=== PATIENT | female | born 1930 | race Caucasian/White ===

== ENCOUNTER 2016-09-26 19:07 | Observation (INO) | payer MEDICARE ==
--- NOTE | 2016-09-26 20:00 | ED.PDOC ---
History of Present Illness - General Chief Complaint: Lower Extremity Injury Stated Complaint: buttock pain Time Seen by Provider: 09/26/16 19:56 Source: patient, RN notes reviewed, Vital Signs reviewed Exam Limitations: no limitations - History of Present Illness Initial Comments: Patient was in her refrigerator and just fell backwards. Did not pass out. She landed on her buttock. Tried to get up but fell back down due to L hip pain. She has pain with any movement of her L hip. She also is having pain in her L elbow. She did hit the back of her head but denies injury or pain. Occurred: just prior to arrival Severity: moderate Pain Location: pelvis, upper extremity - L elbow, lower extremity - L hip Method of Injury: fall Improving Factors: rest Worsening Factors: movement Loss of Consciousness: no loss of consciousness Associated Symptoms (Fall): trouble walking Allergies/Adverse Reactions: Allergies ARTEMIO Inhibitors Allergy (Verified 09/26/16 19:50) Vomitting Codeine Allergy (Verified 09/26/16 19:50) Penicillins Allergy (Verified 09/26/16 19:50) Vomitting Home Medications: Ambulatory Orders Furosemide Tab 40Mg (ER Disp) [Lasix 40mg Tab (ER Dispense)] 40 mg PO DAILY Gabapentin [Neurontin] 900 mg PO BEDTIME 08/28/12 Atorvastatin Calcium [Lipitor] 10 mg PO BEDTIME 12/13/15 Hydroxyzine HCl 25 mg PO Q4HR PRN 12/13/15 Acetaminophen [Tylenol] 500 mg PO Q6HR PRN 12/23/15 Docusate Sodium [Colace] 1 each PO DAILY PRN 12/23/15 Hydrocodone-Acetaminophen [Hydrocodone/Acetaminophen 5-325 mg] 1 tab PO Q4HR PRN 12/23/15 Nicotine Patch 21 mg [Habitrol Patch 21mg] 21 mg TOP Q24HR 12/23/15 Metoprolol Tartrate 25 mg PO DAILY 01/21/16 Cetirizine HCl [ZyrTEC] 10 mg PO PRN 04/06/16 Ferrous Gluconate [Fergon] 27 mg PO BEDTIME 04/06/16 Folic Dtzp-Ebikxtovmi-Mmwhczib [Folbic 2.5-25-2 mg] 1 tab PO BEDTIME 04/06/16 Meloxicam 7.5 mg PO DAILY 04/06/16 Nitroglycerin 0.4 mg Tab [Nitrostat] 1 ea SL PRN 04/06/16 Potassium Citrate (Alkalinizer [Potassium Citrate ER] 10 meq PO BID 04/06/16 Tramadol HCl 50 mg PO TID PRN #14 tab 04/06/16 Metoprolol Succinate [Toprol XL] 25 mg PO BEDTIME 04/25/16 Nitroglycerin [Nitrostat] 1 ea SL WKLY 04/25/16 Potassium Citrate (Alkalinizer [Potassium Citrate ER] 1,080 mg PO DAILY Tramadol HCl 50 mg PO DAILY 04/25/16 hydrOXYzine HCl [Atarax] 25 mg PO DAILY 04/25/16 Review of Systems - Review of Systems Constitutional: States: no symptoms reported EENTM: States: no symptoms reported Respiratory: States: no symptoms reported Cardiology: States: no symptoms reported Gastrointestinal/Abdominal: States: no symptoms reported Genitourinary: States: no symptoms reported Musculoskeletal: States: see HPI, joint pain - L hip and elbow, other - L pelvis pain. Denies: back pain, neck pain Skin: States: no symptoms reported Neurological: States: no symptoms reported. Denies: headache, numbness, paresthesia, tingling, tremors Past Medical History (General) - Patient Medical History Hx Seizures: No Hx Stroke: No Hx Dementia: No Hx Asthma: No Hx of COPD: Yes Hx Cardiac Disorders: Yes Hx Congestive Heart Failure: No Hx Pacemaker: No Hx Hypertension: No Hx Thyroid Disease: No Hx Diabetes: No Hx Gastroesophageal Reflux: No Hx Renal Disease: No Hx Cancer: No Hx of HIV: No Hx Hepatitis C: No Hx MRSA: No MRSA Source:: Wound - Vaccination History Hx Tetanus, Diphtheria Vaccination: No Hx Influenza Vaccination: No Hx Pneumococcal Vaccination: No - Social History Hx Tobacco Use: No Hx Chewing Tobacco Use: No Hx Alcohol Use: No Hx Substance Use: No Hx Substance Use Treatment: No Hx Depression: No Feels Threatened In Home Enviroment: No Feels Threatened In a Relationship: No Hx Physical Abuse: No Hx Emotional Abuse: No Hx Suspected Abuse: No - Female History Patient is a Female of Child Bearing Age (10 -59 yrs old): No Patient : No Family Medical History - Family History Mother Family History: No Known Physical Exam - Physical Exam General Appearance: Alert, Frail, No apparent distress, Well Groomed Head Injury: no evidence of injury Eye Exam: bilateral normal Neck Exam: non-tender, full range of motion, normal alignment, normal inspection Cardiovascular/Respiratory: regular rate, rhythm, no M/R/G, normal peripheral pulses, normal breath sounds, no respiratory distress Gastrointestinal/Abdominal: normal bowel sounds, soft, tenderness - diffusely tender, no guarding or rebound Extremity Exam: no pedal edema, pain with movement - L hip, tenderness - L hip and L lateral pelvis, unable to bear weight Neurologic: no motor/sensory deficits, alert, normal mood/affect, oriented x 3 Skin Exam: rash - numerous bruises in various stages of healing Comments: Vital Signs - 24 hr 09/26/16 19:41 Temperature 98.1 F Pulse Rate [ 94 H Apical] Respiratory 18 Rate Blood Pressure 158/87 [Left Arm] O2 Sat by Pulse 87 L Oximetry - Maikel Coma Score Best Eye Response (Maikel): (4) open spontaneously Best Verbal Response ([place]): (5) oriented Best Motor Response (Maikel): (6) obeys commands Maikel Total: 15 Progress - Progress Progress: 09/26/16 23:[address] Nova, ortho, and Dr. Franklin, hospitalist - will admit for PT and pain control. - Results/Orders Results/Orders: Laboratory Tests 09/26/16 09/26/16 20:25 20:25 WBC 10.5 RBC 4.31 Hgb 13.1 Hct 39.3 MCV 91.2 MCH 30.5 MCHC 33.5 RDW 15.5 H Plt Count 204 MPV 6.5 L Absolute Neuts (auto) 8.60 H Absolute Lymphs (auto) 1.40 Absolute Monos (auto) 0.30 Absolute Eos (auto) 0.10 Absolute Basos (auto) 0.10 Neutrophils % 81.6 H Lymphocytes % 13.6 L Monocytes % 3.2 Eosinophils % 0.8 L Basophils % 0.8 Sodium 139 Potassium 3.3 L Chloride 101 Carbon Dioxide 32 H Anion Gap 9.3 L BUN 15 Creatinine 1.07 BUN/Creatinine Ratio 14.0 Random Glucose 114 H Serum Osmolality 279.2 Calcium 9.4 Total Bilirubin 0.5 AST 18 ALT 20 Alkaline Phosphatase 70 Serum Total Protein 6.2 L Albumin 3.5 Globulin 2.7 Albumin/Globulin Ratio 1.3 - EKG/XRAY/CT XRAY: Elbow - no fracture per radiologist - Bilateral pubic rami fx of unclear age, rec CT scan per Radiologist CT Ordered: Yes CT Interpretation Call Back: No - Bilateral pubic rami fractures per radiology Departure - Departure Clinical Impression: Bilateral pubic rami fractures Qualifiers: Encounter type: initial encounter Fracture type: closed Qualified Code(s): S32.501A - Unspecified fracture of right pubis, initial encounter for closed fracture; S32.502A - Unspecified fracture of left pubis, initial encounter for closed fracture Time of Disposition: 23:00 Disposition: Admit Patient Condition: Fair Departure Forms: ED Discharge - Pt. Copy, Patient Portal Self Enrollment Referrals: Jose Alberto Morelos MD [Primary Care Provider] - 1-2 Weeks Home Medications: Ambulatory Orders Furosemide Tab 40Mg (ER Disp) [Lasix 40mg Tab (ER Dispense)] 40 mg PO DAILY Gabapentin [Neurontin] 900 mg PO BEDTIME 08/28/12 Atorvastatin Calcium [Lipitor] 10 mg PO BEDTIME 12/13/15 Hydroxyzine HCl 25 mg PO Q4HR PRN 12/13/15 Acetaminophen [Tylenol] 500 mg PO Q6HR PRN 12/23/15 Docusate Sodium [Colace] 1 each PO DAILY PRN 12/23/15 Hydrocodone-Acetaminophen [Hydrocodone/Acetaminophen 5-325 mg] 1 tab PO Q4HR PRN 12/23/15 Nicotine Patch 21 mg [Habitrol Patch 21mg] 21 mg TOP Q24HR 12/23/15 Metoprolol Tartrate 25 mg PO DAILY 01/21/16 Cetirizine HCl [ZyrTEC] 10 mg PO PRN 04/06/16 Ferrous Gluconate [Fergon] 27 mg PO BEDTIME 04/06/16 Folic Xmdf-Caraqhmbkv-Xuhwwizv [Folbic 2.5-25-2 mg] 1 tab PO BEDTIME 04/06/16 Meloxicam 7.5 mg PO DAILY 04/06/16 Nitroglycerin 0.4 mg Tab [Nitrostat] 1 ea SL PRN 04/06/16 Potassium Citrate (Alkalinizer [Potassium Citrate ER] 10 meq PO BID 04/06/16 Tramadol HCl 50 mg PO TID PRN #14 tab 04/06/16 Metoprolol Succinate [Toprol XL] 25 mg PO BEDTIME 12/12/16 Nitroglycerin [Nitrostat] 1 ea SL WKLY 04/25/16 Potassium Citrate (Alkalinizer [Potassium Citrate ER] 1,080 mg PO DAILY Tramadol HCl 50 mg PO DAILY 04/25/16 hydrOXYzine HCl [Atarax] 25 mg PO DAILY 04/25/16 Decision To Admit - Decistion To Admit Decision to Admit Reason: Admit from ER Decision to Admit Date: 09/26/16 Decision to Admit Time: 22:51
--- NOTE | 2016-09-26 21:10 | RAD ---
EXAM DESCRIPTION: Hip,Left 2 Views (accession [id number]), Pelvis (accession [id number]) CLINICAL HISTORY: L side pain/tenderness s/p fall tab COMPARISON: April 06, 2016 FINDINGS: Two views of the left hip and frontal view of the pelvis were submitted. Deformity of the superior pubic rami is compatible with fractures of unknown age. If indicated correlation with a CT recommended. Patient is status post left hip arthroplasty. There is no evidence of acute fracture, loosening or dislocation of the left hip or proximal humerus. There is atherosclerosis. Calcifications within the pelvis may represent phleboliths. IMPRESSION: Deformity of the pubic rami bilaterally compatible with fractures of unknown age. If indicated correlation with a CT recommended. Electronically signed by: Sampson Rey MD 09/26/2016 9:10 PM CDT
--- NOTE | 2016-09-26 21:10 | RAD ---
EXAM DESCRIPTION: Hip,Left 2 Views (accession [id number]), Pelvis (accession [id number]) CLINICAL HISTORY: L side pain/tenderness s/p fall tab COMPARISON: April 06, 2016 FINDINGS: Two views of the left hip and frontal view of the pelvis were submitted. Deformity of the superior pubic rami is compatible with fractures of unknown age. If indicated correlation with a CT recommended. Patient is status post left hip arthroplasty. There is no evidence of acute fracture, loosening or dislocation of the left hip or proximal humerus. There is atherosclerosis. Calcifications within the pelvis may represent phleboliths. IMPRESSION: Deformity of the pubic rami bilaterally compatible with fractures of unknown age. If indicated correlation with a CT recommended. Electronically signed by: Sampson Rey MD 09/26/2016 9:10 PM CDT
[2016-09-26] MEDS ORDERED: ONDANSETRON INJ 4 MG/2 ML VIAL IV ONE (21:19)
[2016-09-26] MEDS ORDERED: MORPHINE SULFATE INJ 10 MG/ML VIAL IV ONE (21:19)
--- NOTE | 2016-09-26 21:27 | RAD ---
EXAM DESCRIPTION: Elbow,Left 3 Views CLINICAL HISTORY: L side pain/tenderness s/p fall COMPARISON: None FINDINGS: AP, lateral and oblique views of the left elbow were submitted. Images were mislabeled as the right elbow, this was confirmed with the tech. Lucency at the level of the radial head in the frontal view could be secondary to superimposed artifact, nondisplaced fracture cannot be completely excluded. Repeat frontal view of the left elbow recommended. There is a peripheral catheter at the level of the antecubital fossa. Soft tissue artifact visualized. There is no radiopaque foreign body material IMPRESSION: Lucency at the level of the radial head in the frontal view could be secondary to superimposed artifact, nondisplaced fracture cannot be completely excluded. Repeat frontal view of the left elbow recommended. Electronically signed by: Sampson Rey MD 09/26/2016 9:26 PM CDT
--- NOTE | 2016-09-26 22:35 | CT ---
EXAM DESCRIPTION: Pelvis CLINICAL HISTORY: 85 years Female Pubic rami fx ? age COMPARISON: Plain films performed the same day TECHNIQUE: Contiguous axial images of the pelvis were obtained followed by reconstruction images. This exam was performed according to our departmental dose-optimization program, which includes automated exposure control, adjustment of the mA and/or kV according to patient size and/or use of iterative reconstruction technique. FINDINGS: There are acute fractures of the superior and inferior left pubic rami and superior right pubic rami which are mildly displaced. Patient is status post left hip arthroplasty. There are degenerative changes of the lumbar spine. There is atherosclerosis. Decreased bone mineralization compatible with osteopenia. IMPRESSION: Acute mildly displaced bilateral pubic rami fractures as described. Electronically signed by: Sampson Rey MD 09/26/2016 10:34 PM CDT
[2016-09-26] MEDS ORDERED: MAGNESIUM HYDROXIDE 30 ML UD PO PRN (22:57)
[2016-09-26] MEDS ORDERED: SODIUM CHLORIDE 0.9% (FLUSH) 10 ML SYG IV PRN (22:57)
[2016-09-26] MEDS ORDERED: MORPHINE SULFATE INJ 10 MG/ML VIAL IV PRN (22:57)
[2016-09-26] MEDS ORDERED: LEVALBUTEROL NEBS 1.25 MG/3 ML VIAL INH PRN (22:57)
[2016-09-26] MEDS ORDERED: KCL 40MEQ/NS 1,000 ML IVS PRN (22:57)
[2016-09-26] MEDS ORDERED: ONDANSETRON INJ 4 MG/2 ML VIAL IV PRN (22:57)
[2016-09-26] MEDS ORDERED: IV SET AND CAP CHANGE INJ INJ SCH (23:00)
--- NOTE | 2016-09-26 23:42 | HP ---
HISTORY OF PRESENT ILLNESS: This 85-year-old, white female was apparently living at home alone when she opened her refrigerator and while standing there and shutting the refrigerator door, she fell backwards, sitting down hard on the kitchen floor, landing on her left elbow and hitting her head on the floor. No loss of consciousness. She was unable to move or wiggle to the telephone, but was able to push her medic alert button that she was wearing around her neck and help was able to come and bring her to the Emergency Room. In the Emergency Room, she was found to be fairly alert, but in a lot of pain, unable to move or even get up to go to the bathroom. Deras catheter was placed. CT scan of the pelvis revealed bilateral pubic rami fractures, minimally displaced. Because of the risk of increased intrapelvic hemorrhage with these bilateral fractures, the patient was admitted to the hospital for close followup and management as well as because of the intolerable pain that she presents with. Possible urinary tract infection also evident. Her potassium was also low, requiring supplementation. PAST MEDICAL HISTORY: 1. Acute fall with fracture of her left hip requiring transfer to an ICU facility because of bad lung disease at [facility] last year in November of 2015. Successful treatment of the fractured hip, but she states she does not remember her [facility] stay at all and it required extensive rehabilitation at [facility] subsequently before she was able to return home. 2. History of hypertension. 3. History of an ascending aortic aneurysm, measured up to 4.8 mm. 4. Neuropathy. 5. Chronic dizziness. 6. Chronic tobacco abuse, having stopped when she had her hip fracture last summer. PAST SURGICAL HISTORY: 1. Orthopedic surgeries to the left arm and forearm as well as left hip. 2. Tonsillectomy. 3. Appendectomy. 4. C-sections times two. 5. Gallbladder removal. 6. Hysterectomy. 7. Right shoulder surgery. 8. Left total knee arthroplasty. 9. Left hip replacement surgery. 10. Colonoscopy. CURRENT MEDICATIONS: Please refer to list of verified home medications in the chart. ALLERGIES: PENICILLIN, ARTEMIO INHIBITORS, CODEINE WITH HER BEING LESS ALLERGIC TO CODEINE THAN PREVIOUSLY NOTED. FAMILY HISTORY: Unremarkable. SOCIAL HISTORY: The patient had smoked since age 19 and stopped last summer and has done remarkably well subsequently and does not have any wish to start smoking again. She currently lives at home alone with her son in [place] and he checks on her on a weekly basis. The patient does live alone, making the current rehab decision somewhat more difficult with her significant pelvic fractures noted. REVIEW OF SYSTEMS: GENERAL: No significant weight loss, fever or chills. HEENT: She bumped her head, but has no significant pain or discomfort, swelling or laceration. Hearing and vision little changed. LUNGS: Some mild shortness of breath noted upon exertion. CARDIOVASCULAR: No significant palpitations or chest pains. GASTROINTESTINAL: Appetite is fair. No nausea or vomiting. No diarrhea or blood int eh stool. GENITOURINARY: No dysuria. NEUROLOGIC: No significant headache or focal weakness. PHYSICAL EXAMINATION: VITAL SIGNS: Afebrile. Pulse 102. Blood pressure 103/56. Pulse oximetry 97% on room air. Weight stable at 60.1 kg. GENERAL: The patient is fairly awake and alert. Significant pain noted initially with even slight movement of the lower extremities. Unable to sit up. Deras catheter was placed to allow her to avoid the bed pain at least for part of her activities. HEENT: Unremarkable. NECK: Supple. LUNGS: Some diminished breath sounds. CARDIOVASCULAR: Heart tones are regular without any significant gallops, but she does have a grade II/ systolic ejection murmur at the base of the heart. ABDOMEN: Soft. EXTREMITIES: Discomfort especially noted left elbow and both hips, more on left than right. NEUROLOGIC: No focal neurological deficits are noted. The patient is otherwise awake and alert. LABORATORY: White count 10,500, hemoglobin 13.1. Chemistries show potassium low at 3.3 with supplement started. CO2 32. BUN and creatinine normal. Glucose 114. Liver enzymes normal. Albumin 3.5. Urinalysis shows pyuria and bacteruria with culture pending. RADIOLOGY: X-rays of the pelvis with pelvic CT specifically looking showing bilateral pubic rami fractures, minimally displaced, though present. Elbow x- ray was taken and further views are suggested per radiologist. ASSESSMENT: 1. Acute fall from standing position posteriorly with blunt head injury and pelvic fracture. 2. Left and right pubic rami fractures needing continued observation for intolerable pain management as well as for the presence of intrapelvic hemorrhage complicating the clinical status of a lady who lives at home alone at age 85. 3. History of chronic obstructive pulmonary disease having stopped smoking about a year ago. 4. Hypokalemia with supplementation started. 5. Possible urinary tract infection, awaiting culture results. 6. History of ascending aortic aneurysm. 7. History of hypertension. 8. History of coronary artery disease with stable angina. 9. History of hyperlipidemia. PLAN: The patient is started on analgesic program and will be evaluated in the morning by physical therapy to evaluate her potential for rehab. The patient will require Toradol on a regular basis as well as as needed opioids for pain management for an intolerable pain presentation. Special attention to avoid further falls. The patient may eventually benefit from rehabilitation in a snf facility before being able to safely return home where she lives at home alone. We will discuss with the son in the morning. #[id number] MARTÍNEZ
[2016-09-27] MEDS: KETOROLAC TROMETHAMINE INJ 30 MG/ML VIAL IV SCH ×4 (00:46→23:43)
[2016-09-27] MEDS: OMEPRAZOLE CAP 20 MG CAP PO SCH (06:06)
[2016-09-27] MEDS ORDERED: METOPROLOL TARTRATE 50 MG TAB ONE (07:35)
[2016-09-27] MEDS: POTASSIUM CHLORIDE 10 MEQ TAB PO SCH (07:52)
[2016-09-27] MEDS: METOPROLOL TARTRATE 25 MG TAB PO SCH (08:45)
--- NOTE | 2016-09-27 12:03 | PN ---
DATE: 09/27/16 SUBJECTIVE: The patient is still in significant pain, though improved compared to last night. She was able to very careful with assistance transfer to a chair , yet increased pain was evident. Deras catheter persists. Able to tolerate food fairly well. No increased shortness of breath evident. She has tolerated stopping smoking over a year ago when her last hip fracture was noted and repaired. OBJECTIVE: VITAL SIGNS: Afebrile. Pulse 87. Blood pressure 101/68. Pulse oximetry 95% on room air. Weight 60.1 kg. LUNGS: Diminished breath sounds. HEART: Tones are somewhat distant. ABDOMEN: Soft. Tenderness especially in both hip regions, yet the patient is able to sit in a chair, but still complaining of discomfort somewhat helped by the Toradol and the p.r.n. opioids. LABORATORY: White count 10,500, hemoglobin has dropped from 13.1 to 10.9 with a normocytic/normochromic presentation. Chemistries show potassium up from 3.3 to 3.7 with supplementation continued. CO2 31, BUN 17, creatinine 1.06, glucose 121. Liver enzymes normal. Albumin 2.9. Urinalysis did show evidence of pyuria and bacteruria with culture pending final identification and sensitivity. Blood cultures are negative thus far. CT of the pelvis does show evidence of the bilateral pubic rami fractures and the patient continues to be observed closely for hemodynamic status as well as for blood loss. ASSESSMENT: 1. Acute fall from standing position posteriorly with blunt head injury as well as landing hard on the left elbow and her pelvis with fractures associated. 2. Acute bilateral pubic rami fractures, minimally displaced, with pain control of primary concern as well as followup because of possible intrapelvic bleeding with decreased blood count evident and to be observed again for another day. 3. Hypokalemia, showing improvement with supplementation. 4. Possible urinary tract infection, cultures pending, started on Macrodantin, to be changed pending culture identification and results. 5. Anemia noted with blood count dropping overnight with further evaluation and management because of the significant pelvic fracture. PLAN: Discussed with the son who will be able to assist in following up with her in the future. The patient lives at home alone, so we will need to be able to analyze with physical therapy's assistance when it is safe for her to go. If need be, she will need some rehab and continued prison care at [facility] where she has been before until she is able to safely care for herself with that decision to be made by tomorrow with physical therapy 's input. #[id number] MARTÍNEZ
[2016-09-27] MEDS: traMADol HCL 50 MG TAB PO PRN (14:52)
[2016-09-27] MEDS ORDERED: POTASSIUM CHLORIDE 40mEq 20ML VIAL ONE (15:40)
[2016-09-27] MEDS ORDERED: SODIUM CHLORIDE 0.9% 1000ML 1,000 ML ONE (15:40)
[2016-09-27] MEDS: POTASSIUM CHLORIDE INJ 40 MEQ 40 MEQ in SODIUM CHLORIDE 0.9% 1000ML 1,000 ML IV SCH (15:42)
[2016-09-27] MEDS ORDERED: cefTRIAXone SODIUM 1 GM in SODIUM CHL 0.9% 50ML MIN-BAG+ 50 ML IVPB SCH (16:00)
[2016-09-27] MEDS ORDERED: SODIUM CHL 0.9% 50ML MIN-BAG+ 50 ML IVPB ONE (16:05)
[2016-09-27] MEDS ORDERED: cefTRIAXone SODIUM 1 GM VIAL ONE (16:05)
[2016-09-27] MEDS ORDERED: NITROFURANTOIN MONOHYDRATE MAC 100 MG CAP PO SCH (17:00)
[2016-09-27] MEDS ORDERED: METOPROLOL SUCCINATE XL 25 MG TAB PO SCH (21:00)
[2016-09-27] MEDS ORDERED: GABAPENTIN 300 MG CAP ONE (21:02)
[2016-09-27] MEDS ORDERED: GABAPENTIN 300 MG CAP PO SCH (23:30)
[2016-09-28] MEDS: OMEPRAZOLE CAP 20 MG CAP PO SCH (05:47)
--- NOTE | 2016-09-28 08:14 | CONS ---
CHIEF COMPLAINT: Pelvis pain. HISTORY OF PRESENT ILLNESS: Ms. Small is an 85-year-old female who fell on the day of presentation. She did not lose consciousness. She was just turning and fell from standing. She had the acute onset of pain, predominantly in the anterior aspect of the pelvis. She complains of pain only in that area now without radiation or neurologic symptoms. She was taken to the Emergency Room and x-rays followed up with a CT scan were performed. She was admitted for suspected bilateral superior rami fractures of the pelvis. PAST MEDICAL HISTORY: 1. Hypertension. 2. Aortic aneurysm. 3. Neuropathy. 4. Dizziness. PAST SURGICAL HISTORY: 1. Hemiarthroplasty of the hip. 2. Tonsillectomy. 3. Appendectomy. 4. times 2. 5. Cholecystectomy. 6. Hysterectomy. 7. Left total knee replacement. MEDICATIONS: Please seen current nursing notes. ALLERGIES: PENICILLIN, ARTEMIO INHIBITORS, POSSIBLE ALLERGY TO CODEINE. SOCIAL HISTORY: The patient does not currently smoke, drink or use any illicit drugs. FAMILY HISTORY: None pertinent to today's complaint. REVIEW OF SYSTEMS: Negative except as indicated in the History of Present Illness. PHYSICAL EXAMINATION: VITAL SIGNS: Blood pressure 103/56. Pulse oximetry 97%. Pulse 102. She is currently afebrile. MENTAL STATUS: The patient is awake, alert, and is able to give a good history and participate in the physical. The patient is oriented to person, place and time. SKIN: Normal tone and turgor. MUSCULOSKELETAL: Bilateral upper extremities show full active range of motion without pain or deformity. She has intact sensation. They are warm and well perfused. Strength is 5/5. The bilateral lower extremities show good range of motion although she does have some pain with range of motion secondary to discomfort in the anterior pelvis. She has no deformity of the extremities. Sensation is intact. They are warm and well perfused. She does have pain to palpation over the anterior pubic symphysis. There is no break in the skin, no swelling, and no other deformities noted. IMAGING: X-rays and CT scan show bilateral superior pubic rami fractures. There does appear to be inferior pubic rami fracture on the left. There is very minimal displacement. ASSESSMENT: 1. Pubic rami fractures. PLAN: The fractures appear to be stable and there does not appear to be any disruption of the posterior pelvic ring. As such, this likely represents a stable injury which Ms. Small could get up and walk with on an as tolerated basis. To that end, I think that is reasonable with adequate pain control. Thank you for allowing me to participate in the care of this patient. #[id number] MARTÍNEZ
--- NOTE | 2016-09-28 08:15 | PN ---
DATE: 09/28/16 SUBJECTIVE: She is doing well from a pain standpoint. She did get up and walk with physical therapy yesterday. OBJECTIVE: Afebrile. Vital signs stable. ASSESSMENT: Status post bilateral pubic rami fractures. PLAN: She can continue with physical therapy as tolerated. #[id number] MTDD
[2016-09-28] MEDS: KETOROLAC TROMETHAMINE INJ 30 MG/ML VIAL IV SCH (08:28)
[2016-09-28] MEDS: POTASSIUM CHLORIDE 10 MEQ TAB PO SCH (08:28)
[2016-09-28] MEDS ORDERED: SODIUM CHLORIDE 0.9% 1000ML 1,000 ML ONE ×2 (08:51→08:54)
[2016-09-28] MEDS ORDERED: POTASSIUM CHLORIDE 40mEq 20ML VIAL ONE (08:54)
[2016-09-28] MEDS: POTASSIUM CHLORIDE INJ 40 MEQ 40 MEQ in SODIUM CHLORIDE 0.9% 1000ML 1,000 ML IV SCH (09:01)
[2016-09-28] MEDS ORDERED: METOPROLOL TARTRATE 25 MG TAB ONE (09:22)
[2016-09-28] MEDS: METOPROLOL TARTRATE 25 MG TAB PO SCH ×2 (09:25→09:28)
[2016-09-28] MEDS ORDERED: POTASSIUM CHLORIDE INJ 40 MEQ 40 MEQ in SODIUM CHLORIDE 0.9% 1000ML 1,000 ML IVS SCH (10:30)
[2016-09-28] MEDS: traMADol HCL 50 MG TAB PO PRN (14:26)
[2016-09-28 14:56] VITALS: BP 126/78; TEMP 98.6; O2SAT 93
[2016-09-29] MEDS ORDERED: METOPROLOL SUCCINATE XL 25 MG TAB PO SCH (09:00)
--- NOTE | 2016-09-29 11:21 | DS ---
SUPERVISING PHYSICIAN: Manny Jones MD DISCHARGE DIAGNOSIS: 1. Acute fall from standing position posteriorly with blunt head injury as well as landing hard on the left elbow and her pelvis with fractures associated. 2. Acute bilateral pubic rami fractures, minimally displaced, with pain control of primary concern. She will be transferred for rehab to [place] [facility]. 3. Hypokalemia, improved. 4. Possible urinary tract infection, cultures pending, started on Macrodantin. 5. Anemia with initial hemoglobin of 13.1 and hematocrit 39.3 on admission. It then dropped to 10.9 and 33.0. This morning, it was hemoglobin 10.2 and hematocrit 31.1. HISTORY OF PRESENT ILLNESS: This is an 85-year-old female patient who lives at home alone and after opening her refrigerator, she fell backwards and sat down hard on the kitchen floor, landing on her left elbow and hitting her head on the floor. There was no loss of consciousness. She was unable to move or wiggle to the telephone, but was able to push her medic alert button. She was brought to the Emergency Room via EMS. In the Emergency Room, she was alert, but in quite a bit of pain. A Deras catheter was placed. A CT scan of the pelvis revealed bilateral pubic rami fractures, minimally displaced. She was admitted to the hospital for close followup as well as pain management. HOSPITAL COURSE: Dr. Nova, orthopedic surgeon was consulted and he felt that fractures appear to be stable and there did not appear to be any disruption of the posterior pelvic ring and he felt that she could be rehabbed with physical therapy and did not need surgical intervention. Because the patient lives alone and had a difficult time ambulating as well as physical therapy and was unable to optimize her care, she was transferred to [facility]. She was accepted today, so she will be discharged to that facility. DISCHARGE PLAN: The patient will be discharged to [facility] for conditioning and strengthening. She will be discharged with her home medication list. She is to resume her previous diet as well as her activity will be per physical therapy. She is to followup with Dr. Morelos after her rehabilitation. DISCHARGE MEDICATIONS: 1. Gabapentin. 2. Furosemide. 3. Lipitor. 4. Hydroxyzine. 5. Nicotine patch. 6. Hydrocodone. 7. Colace. 8. Acetaminophen. 9. Folbic. 10. Nitroglycerin tabs. 11. Fergon. 12. Zyrtec. 13. Meloxicam. 14. Potassium citrate. 15. Tramadol. 16. Metoprolol. 17. Ciprofloxacin. is the collaborating physician and available for consultation. #[id number] [facility]
== END 2016-09-28 14:50 ==
LOC: ER 19:07 → OBSVTOIN 23:41 → MS 23:41 → INTOOBSV 23:41
PROVIDERS: ADMIT Emergency Medicine; ATTEND Emergency Medicine
DX: S32.592A Other specified fracture of left pubis, initial encounter for closed fracture (principal); S32.591A Other specified fracture of right pubis, initial encounter for closed fracture; S59.902A Unspecified injury of left elbow, initial encounter; S09.90XA Unspecified injury of head, initial encounter; E87.6 Hypokalemia; D64.9 Anemia, unspecified; I10 Essential (primary) hypertension; G62.9 Polyneuropathy, unspecified; I25.118 Atherosclerotic heart disease of native coronary artery with other forms of angina pectoris; J44.9 Chronic obstructive pulmonary disease, unspecified; E78.5 Hyperlipidemia, unspecified; I71.4 Abdominal aortic aneurysm, without rupture; R42 Dizziness and giddiness; R40.2412 Glasgow coma scale score 13-15, at arrival to emergency department; W18.39XA Other fall on same level, initial encounter; Y93.89 Activity, other specified; Y92.000 Kitchen of unspecified non-institutional (private) residence as the place of occurrence of the external cause; Z66 Do not resuscitate; Z79.1 Long term (current) use of non-steroidal anti-inflammatories (NSAID); Z79.899 Other long term (current) drug therapy; Z88.0 Allergy status to penicillin; Z88.6 Allergy status to analgesic agent; Z88.8 Allergy status to other drugs, medicaments and biological substances; Z60.2 Problems related to living alone; Z87.891 Personal history of nicotine dependence; Z96.642 Presence of left artificial hip joint; Z96.652 Presence of left artificial knee joint; Z90.49 Acquired absence of other specified parts of digestive tract; Z90.710 Acquired absence of both cervix and uterus
CPT/HCPCS: 36415 ×3; 51702; 72170; 72192; 73080; 73502; 80048; 80053 ×2; 81001; 85025 ×3; 87086; 87088; 87186; 94760 ×5; 96365; 96375 ×2; 96376 ×2; 97116 ×3; 97162; 99284; G0378; G8978; G8979; J0696; J1885 ×5; J2270; J2405; J3480 ×3; J7030 ×3; J7050

== ENCOUNTER 2016-12-07 12:24 | Emergency (ER) | payer MEDICARE ==
--- NOTE | 2016-12-07 12:44 | ED.PDOC ---
History of Present Illness - General Chief Complaint: Trauma Stated Complaint: fall Time Seen by Provider: 12/07/16 12:26 Source: patient, RN notes reviewed, Vital Signs reviewed, EMS Exam Limitations: no limitations - History of Present Illness Initial Comments: Patient reports she stood up to get a card and fell over backwards landing on her bottom. She is c/o L rib pain, L arm pain, back pain, L hip/thigh pain. She recently fell, 09/2016, and was admitted with bilateral pubic rami fractures. Occurred: just prior to arrival Severity: moderate Pain Location: chest, back, upper extremity, lower extremity Method of Injury: fall - got up without her walker Improving Factors: immobilization Worsening Factors: movement, other - deep breathing Loss of Consciousness: no loss of consciousness Associated Symptoms (Fall): denies symptoms Allergies/Adverse Reactions: Allergies ARTEMIO Inhibitors Allergy (Verified 12/07/16 13:00) Vomitting Codeine Allergy (Verified 12/07/16 13:00) Penicillins Allergy (Verified 12/07/16 13:00) Vomitting Home Medications: Ambulatory Orders Furosemide Tab 40Mg (ER Disp) [Lasix 40mg Tab (ER Dispense)] 40 mg PO DAILY Gabapentin [Neurontin] 900 mg PO BEDTIME 08/28/12 Atorvastatin Calcium [Lipitor] 10 mg PO BEDTIME 12/13/15 Hydroxyzine HCl 25 mg PO Q4HR PRN 12/13/15 Acetaminophen [Tylenol] 500 mg PO Q6HR PRN 12/23/15 Docusate Sodium [Colace] 1 each PO DAILY PRN 12/23/15 Hydrocodone-Acetaminophen 1 tab PO Q4HR PRN 12/23/15 Nicotine Patch 21 mg [Habitrol Patch 21mg] 21 mg TOP Q24HR 12/23/15 Cetirizine HCl [Zyrtec] 10 mg PO PRN 04/06/16 Ferrous Gluconate [Fergon] 27 mg PO BEDTIME 04/06/16 Folic Wavf-Fxqnavlaad-Jsfblflm [Folbic 2.5-25-2 mg] 1 tab PO BEDTIME 04/06/16 Meloxicam 7.5 mg PO DAILY 04/06/16 Nitroglycerin 0.4 mg Tab [Nitrostat] 1 ea SL PRN 04/06/16 Potassium Citrate (Alkalinizer [Potassium Citrate ER] 10 meq PO BID 04/06/16 Tramadol HCl 50 mg PO TID PRN #14 tab 04/06/16 Metoprolol Succinate [Toprol Xl] 25 mg PO DAILY 04/25/16 Nitroglycerin [Nitrostat] 1 ea SL WKLY 04/25/16 Potassium Citrate (Alkalinizer [Potassium Citrate ER] 1,080 mg PO DAILY Tramadol HCl 50 mg PO DAILY 04/25/16 hydrOXYzine HCl [Atarax] 25 mg PO DAILY 04/25/16 Ciprofloxacin [Cipro] 500 mg PO BID #14 ml 09/28/16 Review of Systems - Review of Systems Constitutional: States: no symptoms reported Respiratory: States: no symptoms reported. Denies: short of breath - but L sided pain with breathing Cardiology: States: chest pain - left lower ribs Gastrointestinal/Abdominal: States: no symptoms reported Musculoskeletal: States: see HPI, back pain, joint pain - L shoulder, L hip Skin: States: other - numerous bruises in various stages All other Systems: No Change from Baseline Past Medical History (General) - Patient Medical History Hx Seizures: No Hx Stroke: No Hx Dementia: No Hx Asthma: No Hx of COPD: No Hx Cardiac Disorders: Yes Hx Congestive Heart Failure: No Hx Pacemaker: No Hx Hypertension: Yes Hx Thyroid Disease: No Hx Diabetes: No Hx Gastroesophageal Reflux: No Hx Renal Disease: No Hx Cancer: No Hx of HIV: No Hx Hepatitis C: No Hx MRSA: No MRSA Source:: Wound - Vaccination History Hx Tetanus, Diphtheria Vaccination: No Hx Influenza Vaccination: No Hx Pneumococcal Vaccination: No - Social History Hx Tobacco Use: No Hx Chewing Tobacco Use: No Hx Alcohol Use: No Hx Substance Use: No Hx Substance Use Treatment: No Hx Depression: No Hx Physical Abuse: No Hx Emotional Abuse: No Hx Suspected Abuse: No - Female History Patient : No Family Medical History - Family History Mother Family History: No Known Living Status: Hx Family Asthma: No Hx Family Congestive Heart Failure: No Hx Family Hypertension: No Hx Family Stroke: No Hx Cardiac Disease: Yes Hx Family Diabetes: No Hx Family Cancer: No Physical Exam - Physical Exam General Appearance: Alert, No apparent distress, Well Groomed, Well Hydrated, Well Nourished, Other - Obvious pain, clutching L ribs Neck Exam: non-tender, normal inspection Cardiovascular/Respiratory: regular rate, rhythm, no M/R/G, normal peripheral pulses, normal breath sounds, no respiratory distress Gastrointestinal/Abdominal: normal bowel sounds, soft, no organomegaly, no pulsatile mass, tenderness - L side Extremity Exam: tenderness - L shoulder, L humerus, L hip & femur, L chest wall tenderness Neurologic: no motor/sensory deficits, alert, normal mood/affect Skin Exam: other - numerous bruises in various stages of healing. Progress - EKG/XRAY/CT XRAY: T-Spine: no fracture per Rad, L hip: no fx - No acute fracture Xray Comments: Ribs: No fracture, L femur/humerus/L-spine: no acute fractures per Rad Departure - Departure Clinical Impression: Rib pain on left side, Multiple contusions Low back pain Qualifiers: Back pain laterality: midline Sciatica presence: without sciatica Qualified Code(s): M54.5 - Low back pain Time of Disposition: 13:57 Disposition: Discharge to Asst Living Condition: Good Departure Forms: ED Discharge - Pt. Copy, Patient Portal Self Enrollment Instructions: DI for Contusion, DI for Rib Contusion Diet: resume usual diet Activity: ambulate only with walker Referrals: Jose Alberto Morelos MD [Primary Care Provider] - 1-2 Weeks Home Medications: Ambulatory Orders Furosemide Tab 40Mg (ER Disp) [Lasix 40mg Tab (ER Dispense)] 40 mg PO DAILY Gabapentin [Neurontin] 900 mg PO BEDTIME 08/28/12 Atorvastatin Calcium [Lipitor] 10 mg PO BEDTIME 12/13/15 Hydroxyzine HCl 25 mg PO Q4HR PRN 12/13/15 Acetaminophen [Tylenol] 500 mg PO Q6HR PRN 12/23/15 Docusate Sodium [Colace] 1 each PO DAILY PRN 12/23/15 Hydrocodone-Acetaminophen 1 tab PO Q4HR PRN 12/23/15 Nicotine Patch 21 mg [Habitrol Patch 21mg] 21 mg TOP Q24HR 12/23/15 Cetirizine HCl [Zyrtec] 10 mg PO PRN 04/06/16 Ferrous Gluconate [Fergon] 27 mg PO BEDTIME 04/06/16 Folic Cuor-Dcnjuzxypc-Qpuqpslw [Folbic 2.5-25-2 mg] 1 tab PO BEDTIME 04/06/16 Meloxicam 7.5 mg PO DAILY 04/06/16 Nitroglycerin 0.4 mg Tab [Nitrostat] 1 ea SL PRN 04/06/16 Potassium Citrate (Alkalinizer [Potassium Citrate ER] 10 meq PO BID 04/06/16 Tramadol HCl 50 mg PO TID PRN #14 tab 04/06/16 Metoprolol Succinate [Toprol Xl] 25 mg PO DAILY 04/25/16 Nitroglycerin [Nitrostat] 1 ea SL WKLY 04/25/16 Potassium Citrate (Alkalinizer [Potassium Citrate ER] 1,080 mg PO DAILY Tramadol HCl 50 mg PO DAILY 04/25/16 hydrOXYzine HCl [Atarax] 25 mg PO DAILY 04/25/16 Ciprofloxacin [Cipro] 500 mg PO BID #14 ml 09/28/16
[2016-12-07 13:01] VITALS: BP 133/65; TEMP 98; O2SAT 98
--- NOTE | 2016-12-07 13:20 | RAD ---
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 The hardware appears in good alignment on the images provided. There are minimally displaced fractures with callus formation in the pubic rami bilaterally. There is no evidence of acute fracture or destructive osseous lesion in the left femur. The bones are demineralized. Scattered vascular calcifications are demonstrated. Electronically signed by: Darius White MD 12/07/2016 1:19 PM CDT
--- NOTE | 2016-12-07 13:22 | RAD ---
EXAM DESCRIPTION: Hip,Left 2 Views CLINICAL HISTORY: 86 yearsFemale, Pain s/p fall COMPARISON: CT pelvis 09/26/2016 IMPRESSION: AP and lateral radiographs of the left hip demonstrate diffuse osseous demineralization. A left hip prosthesis is present. Components appear in good alignment, with no collocating features. There is callus formation involving the left superior and inferior pubic rami as well as the right inferior pubic ramus, consistent with healing fractures. No definite evidence for new fracture or destructive osseous lesion. Scattered calcified phleboliths and arterial calcifications. Electronically signed by: Darius White MD 12/07/2016 1:21 PM CDT
--- NOTE | 2016-12-07 13:23 | RAD ---
EXAM DESCRIPTION: Lumbar Spine 3 Views CLINICAL HISTORY: Pain s/p fall COMPARISON: Lumbar spine magnetic resonance imaging dated 13 Oct 2015 TECHNIQUE: 3 views FINDINGS: A left hip arthroplasty is observed. Surgical clips are seen in the right upper quadrant. Mild convexity lumbar spine to the patient's left is observed. Osteopenia is noted. Vacuum disc phenomena is observed at the L4-5 and L5-S1 levels. Diffuse facet joint arthritis is observed in the lower lumbar spine. The lumbar vertebral bodies are in good AP alignment. Calcific atherosclerotic changes observed in the abdominal aorta without evidence of aneurysmal dilatation. Prior laminectomy is observed at the L5 level. IMPRESSION: Osteopenia and degenerative changes are observed. No fracturing is detected. There is evidence of prior L5 laminectomy. Electronically signed by: Sanya Wood MD 12/07/2016 1:21 PM CDT
--- NOTE | 2016-12-07 13:24 | RAD ---
EXAM DESCRIPTION: Humerus,Left CLINICAL HISTORY: 86 yearsFemale, Pain s/p fall COMPARISON: None. IMPRESSION: AP and lateral radiographs of the left humerus. The bones are severely demineralized. There is no evidence acute fracture, dislocation, or destructive osseous lesion. No overt focal soft tissue swelling. Mild degenerative changes in the shoulder and elbow which are suboptimally evaluated on this exam dedicated to the humerus. Electronically signed by: Darius White MD 12/07/2016 1:22 PM CDT
--- NOTE | 2016-12-07 13:28 | RAD ---
EXAM DESCRIPTION: Ribs,Left 3 Views CLINICAL HISTORY: 86 yearsFemale, Pain s/p fall COMPARISON: Chest 12/25/2015 IMPRESSION: The bones are demineralized. There is no evidence of a displaced left rib fracture on the images provided. Extensive costochondral calcification in the lower chest somewhat limits evaluation. Severe atherosclerotic plaque in the thoracic aorta. Electronically signed by: Darius White MD 12/07/2016 1:27 PM CDT
--- NOTE | 2016-12-07 13:36 | RAD ---
EXAM DESCRIPTION: Thoracic Spine,AP Lateral CLINICAL HISTORY: Pain s/p fall COMPARISON: None. TECHNIQUE: AP/lateral FINDINGS: The spine is osteopenic. The pedicles are intact. No compression injury is detected. IMPRESSION: Diffuse osteopenia is observed. No fracturing is detected. Electronically signed by: Sanya Wood MD 12/07/2016 1:35 PM CDT
== END 2016-12-07 14:46 ==
LOC: ER 12:24
DX: M54.5 Low back pain (principal); R07.81 Pleurodynia; T14.8 Other injury of unspecified body region; I10 Essential (primary) hypertension; Z88.6 Allergy status to analgesic agent; Z88.0 Allergy status to penicillin; Z88.8 Allergy status to other drugs, medicaments and biological substances; Z79.899 Other long term (current) drug therapy; W19.XXXA Unspecified fall, initial encounter

== ENCOUNTER → 2017-01-11 | Outpatient (CLI) | payer MEDICARE | END | disposition home or self-care (01) | LOC: GMAB 14:11 | PROVIDERS: ATTEND Family Medicine | DX: R11.2 Nausea with vomiting, unspecified (principal) ==

== ENCOUNTER 2017-03-08 15:01 | Emergency (ER) | payer MEDICARE ==
--- NOTE | 2017-03-08 15:03 | ED.PDOC ---
History of Present Illness - General Chief Complaint: Chest Pain/AK Stated Complaint: chest pressure Time Seen by Provider: 03/08/17 15:02 Source: patient, EMS notes reviewed Exam Limitations: no limitations - History of Present Illness Initial Comments: Naima Small 86 y/o female stated that she had physical therapy at home today this am and while undergoing some of rehab exercises she developed chest pressure but no chest pains,no diaphoresis no nausea/vomiting and the physical therapist called up the home health nurse and was told to call up ems and was given aspirin and NTG sl on way here .Stated that by the time nurse was called up she was was relieved of chest pressure. Timing/Duration: 1-3 hours Severity/Quality: pressure Location: central Chest Pain Radiation: no radiation Prior Chest Pain/Cardiac Workup: echocardiography Improving Factors: rest Worsening Factors: other - intense activity Nitro Today/Relief: 0.4 mg x 1, provided by EMS Aspirin Treatment Today: 325 mg x 1, provided by EMS Associated Symptoms: denies symptoms Allergies/Adverse Reactions: Allergies ARTEMIO Inhibitors Allergy (Verified 03/08/17 15:17) Vomitting Codeine Allergy (Verified 03/08/17 15:17) Penicillins Allergy (Verified 03/08/17 15:17) Vomitting Home Medications: Ambulatory Orders Furosemide Tab 40Mg (ER Disp) [Lasix 40mg Tab (ER Dispense)] 40 mg PO DAILY Gabapentin [Neurontin] 900 mg PO BEDTIME 08/28/12 Atorvastatin Calcium [Lipitor] 10 mg PO BEDTIME 12/13/15 Hydroxyzine HCl 25 mg PO Q4HR PRN 12/13/15 Acetaminophen [Tylenol] 500 mg PO Q6HR PRN 12/23/15 Docusate Sodium [Colace] 1 each PO DAILY PRN 12/23/15 Hydrocodone-Acetaminophen 1 tab PO Q4HR PRN 12/23/15 Nicotine Patch 21 mg [Habitrol Patch 21mg] 21 mg TOP Q24HR 12/23/15 Cetirizine HCl [Zyrtec] 10 mg PO PRN 04/06/16 Ferrous Gluconate 27 mg PO BEDTIME 04/06/16 Folic Yegm-Viqkbhpfqq-Xxyxiosp [Folbic 2.5-25-2 mg] 1 tab PO BEDTIME 04/06/16 Meloxicam 7.5 mg PO DAILY 04/06/16 Nitroglycerin 0.4 mg Tab [Nitrostat] 1 ea SL PRN 04/06/16 Potassium Citrate (Alkalinizer [Potassium Citrate ER] 10 meq PO BID 04/06/16 Tramadol HCl 50 mg PO TID PRN #14 tab 04/06/16 Metoprolol Succinate [Toprol Xl] 25 mg PO DAILY 04/25/16 Nitroglycerin [Nitrostat] 1 ea SL WKLY 04/25/16 Potassium Citrate (Alkalinizer [Potassium Citrate ER] 1,080 mg PO DAILY Tramadol HCl 50 mg PO DAILY 04/25/16 hydrOXYzine HCl [Atarax] 25 mg PO DAILY 04/25/16 Ciprofloxacin [Cipro] 500 mg PO BID #14 ml 09/28/16 Review of Systems - Review of Systems Constitutional: States: no symptoms reported EENTM: States: no symptoms reported Respiratory: States: no symptoms reported Cardiology: States: see HPI Gastrointestinal/Abdominal: States: no symptoms reported Genitourinary: States: no symptoms reported Musculoskeletal: States: no symptoms reported Past Medical History (General) - Patient Medical History Hx Seizures: No Hx Stroke: No Hx Dementia: No Hx Asthma: No Hx of COPD: No Hx Cardiac Disorders: Yes Hx Congestive Heart Failure: No Hx Pacemaker: No Hx Hypertension: Yes Hx Thyroid Disease: No Hx Diabetes: No Hx Gastroesophageal Reflux: No Hx Renal Disease: No Hx Cancer: No Hx of HIV: No Hx Hepatitis C: No Hx MRSA: No MRSA Source:: Wound Surgical History: other - hysterectomy - Vaccination History Hx Tetanus, Diphtheria Vaccination: No Hx Influenza Vaccination: No Hx Pneumococcal Vaccination: No - Social History Hx Tobacco Use: No Hx Chewing Tobacco Use: No Hx Alcohol Use: No Hx Substance Use: No Hx Substance Use Treatment: No Hx Depression: No Hx Physical Abuse: No Hx Emotional Abuse: No Hx Suspected Abuse: No - Activities of Daily Living Grooming Ability: Independent Eating (Feeding) Ability: Independent Toileting Ability: Independent - Female History Patient : No Family Medical History - Family History Mother Family History: No Known Living Status: Hx Family Asthma: No Hx Family Congestive Heart Failure: No Hx Family Hypertension: No Hx Family Stroke: No Hx Cardiac Disease: Yes Hx Family Diabetes: No Hx Family Cancer: No Physical Exam - Physical Exam General Appearance: Alert, Comfortable, No apparent distress Eyes, Ears, Nose, Throat Exam: PERRL/EOMI, normal ENT inspection, pharynx normal Neck: non-tender, full range of motion, supple, normal inspection Respiratory: chest non-tender, lungs clear Cardiovascular/Chest: normal peripheral pulses, regular rate, rhythm, no gallop , no murmur Peripheral Pulses: radial,right: 2+, radial,left: 2+ Gastrointestinal/Abdominal: normal bowel sounds, non tender, soft, no organomegaly Extremity: non-tender, no pedal edema, no calf tenderness Neurologic: no motor/sensory deficits, alert, normal mood/affect, oriented x 3 Skin Exam: normal color, warm/dry Progress - Progress Progress: 03/08/17 18:19 Vital Signs - 8 hr 03/08/17 15:02 Temperature 98.3 F Pulse Rate [ 85 pulse ox] Respiratory 20 Rate Blood Pressure 126/70 [Left Arm] O2 Sat by Pulse 96 Oximetry - Results/Orders Results/Orders: Laboratory Tests 03/08/17 03/08/17 03/08/17 14:55 14:55 18:00 WBC 7.0 RBC 4.24 Hgb 12.7 Hct 38.5 MCV 90.8 MCH 29.9 MCHC 33.1 RDW 16.2 H Plt Count 224 MPV 7.1 L Absolute Neuts (auto) 4.00 Absolute Lymphs (auto) 2.30 Absolute Monos (auto) 0.50 Absolute Eos (auto) 0.10 Absolute Basos (auto) 0.10 Neutrophils % 57.2 Lymphocytes % 33.1 Monocytes % 6.6 Eosinophils % 2.0 Basophils % 1.1 PT 10.3 INR 0.910 PTT (SP) 27.0 D-Dimer, Quantitative 587 H* Sodium 140 Potassium 3.7 Chloride 102 Carbon Dioxide 32 H Anion Gap 9.7 L BUN 13 Creatinine 1.46 H BUN/Creatinine Ratio 8.9 L Random Glucose 101 Serum Osmolality 279.7 Calcium 9.2 Magnesium 2.0 Total Bilirubin 0.5 Direct Bilirubin 0.1 Indirect Bilirubin 0.4 AST 23 ALT 12 Alkaline Phosphatase 81 Creatine Kinase 69 CK-MB (CK-2) 4.4 CK-MB (CK-2) % Not Reportable Troponin I < 0.02 < 0.02 B-Natriuretic Peptide 121.0 H Serum Total Protein 6.4 Albumin 3.8 Declined hospital obs wants to go home;stated her puppy is home alone stating feels better since she was in er. - EKG/XRAY/CT EKG: Sinus, nonspecific ST T wave Chg Comments: heart rate 81;low voltage qrs;LAFB XRAY: chest - copd changes ,no acute abnormalities Departure - Departure Clinical Impression: Chest tightness or pressure Time of Disposition: 19:00 Disposition: Discharge to Home or Self Care Condition: Fair Departure Forms: ED Discharge - Pt. Copy, Patient Portal Self Enrollment Instructions: DI for Atypical Chest Pain Referrals: Jose Alberto Morelos MD [Primary Care Provider] - 1-2 Weeks Home Medications: Ambulatory Orders Furosemide Tab 40Mg (ER Disp) [Lasix 40mg Tab (ER Dispense)] 40 mg PO DAILY Gabapentin [Neurontin] 900 mg PO BEDTIME 08/28/12 Atorvastatin Calcium [Lipitor] 10 mg PO BEDTIME 12/13/15 Hydroxyzine HCl 25 mg PO Q4HR PRN 12/13/15 Acetaminophen [Tylenol] 500 mg PO Q6HR PRN 12/23/15 Docusate Sodium [Colace] 1 each PO DAILY PRN 12/23/15 Hydrocodone-Acetaminophen 1 tab PO Q4HR PRN 12/23/15 Nicotine Patch 21 mg [Habitrol Patch 21mg] 21 mg TOP Q24HR 12/23/15 Cetirizine HCl [Zyrtec] 10 mg PO PRN 04/06/16 Ferrous Gluconate 27 mg PO BEDTIME 04/06/16 Folic Ntbg-Rsbhqiivnf-Ikuuuonf [Folbic 2.5-25-2 mg] 1 tab PO BEDTIME 04/06/16 Meloxicam 7.5 mg PO DAILY 04/06/16 Nitroglycerin 0.4 mg Tab [Nitrostat] 1 ea SL PRN 04/06/16 Potassium Citrate (Alkalinizer [Potassium Citrate ER] 10 meq PO BID 04/06/16 Tramadol HCl 50 mg PO TID PRN #14 tab 04/06/16 Metoprolol Succinate [Toprol Xl] 25 mg PO DAILY 04/25/16 Nitroglycerin [Nitrostat] 1 ea SL WKLY 04/25/16 Potassium Citrate (Alkalinizer [Potassium Citrate ER] 1,080 mg PO DAILY Tramadol HCl 50 mg PO DAILY 04/25/16 hydrOXYzine HCl [Atarax] 25 mg PO DAILY 04/25/16 Ciprofloxacin [Cipro] 500 mg PO BID #14 ml 09/28/16 Additional Instructions: RETURN TO EMERGENCY ROOM NEEDED;Continue with all home medications
[2017-03-08 15:17] VITALS: O2SAT 96
--- NOTE | 2017-03-08 15:40 | RAD ---
EXAM DESCRIPTION: Chest,1 View CLINICAL HISTORY: 86 years Female, pain COMPARISON: 12/25/2015 IMPRESSION: The heart is mildly enlarged, without failure. The thoracic aorta is tortuous and contains moderate calcific plaque. The lungs are hyperexpanded with changes of advanced emphysema and fibrosis. There is no confluent airspace consolidation, pleural effusion, or pneumothorax. [place] screw in the right humeral head. No acute osseous normality. Electronically signed by: Darius White MD 03/08/2017 3:39 PM CDT
[2017-03-08 19:36] VITALS: BP 161/86; TEMP 97.5
== END 2017-03-08 19:25 | disposition home or self-care (01) ==
LOC: ER 15:01
DX: R07.89 Other chest pain (principal); I10 Essential (primary) hypertension; Z88.6 Allergy status to analgesic agent; Z88.0 Allergy status to penicillin; Z79.899 Other long term (current) drug therapy

== ENCOUNTER 2017-04-28 16:43 | Observation (INO) | payer MEDICARE ==
--- NOTE | 2017-04-28 17:45 | ED.PDOC ---
History of Present Illness - General Chief Complaint: Lower Extremity Injury Stated Complaint: LEFT LEG PAIN Time Seen by Provider: 04/28/17 17:44 Source: patient, EMS notes reviewed Exam Limitations: no limitations - History of Present Illness Initial Comments: Naima Small 86 y/o female stated that she had been having sharp left leg pain and low back pain for the last 3 days which got worse today had to call ambulance.No history of fall recently. Occurred: other - see hpi Pain - Lower Extremity: moderate: Left Thigh/Hip Method of Injury: unknown Improving Factors: rest Worsening Factors: movement Allergies/Adverse Reactions: Allergies ARTEMIO Inhibitors Allergy (Verified 03/08/17 15:17) Vomitting Codeine Allergy (Verified 03/08/17 15:17) Penicillins Allergy (Verified 03/08/17 15:17) Vomitting Home Medications: Ambulatory Orders RX: Furosemide Tab 40Mg (ER Disp) [Lasix 40mg Tab (ER Dispense)] 40 mg PO DAILY 08/28/12 RX: Gabapentin [Neurontin] 900 mg PO BEDTIME 08/28/12 RX: Atorvastatin Calcium [Lipitor] 10 mg PO BEDTIME 12/13/15 RX: Hydroxyzine HCl 25 mg PO Q4HR PRN 12/13/15 RX: Acetaminophen [Tylenol] 500 mg PO Q6HR PRN 12/23/15 RX: Docusate Sodium [Colace] 1 each PO DAILY PRN 12/23/15 RX: Hydrocodone-Acetaminophen 1 tab PO Q4HR PRN 12/23/15 RX: Nicotine Patch 21 mg [Habitrol Patch 21mg] 21 mg TOP Q24HR 12/23/15 RX: Cetirizine HCl [Zyrtec] 10 mg PO PRN 04/06/16 RX: Ferrous Gluconate 27 mg PO BEDTIME 04/06/16 RX: Folic Smqw-Pmtzrjkufs-Olyvkofc [Folbic 2.5-25-2 mg] 1 tab PO BEDTIME RX: Meloxicam 7.5 mg PO DAILY 04/06/16 RX: Nitroglycerin 0.4 mg Tab [Nitrostat] 1 ea SL PRN 04/06/16 RX: Potassium Citrate (Alkalinizer [Potassium Citrate ER] 10 meq PO BID RX: Tramadol HCl 50 mg PO TID PRN #14 tab 04/06/16 RX: Metoprolol Succinate [Toprol Xl] 25 mg PO DAILY 04/25/16 RX: Nitroglycerin [Nitrostat] 1 ea SL WKLY 04/25/16 RX: Potassium Citrate (Alkalinizer [Potassium Citrate ER] 1,080 mg PO DAILY 04/29 RX: Tramadol HCl 50 mg PO DAILY 04/25/16 RX: hydrOXYzine HCl [Atarax] 25 mg PO DAILY 04/25/16 Ciprofloxacin [Cipro] 500 mg PO BID #14 ml 09/28/16 Review of Systems - Review of Systems Constitutional: States: no symptoms reported EENTM: States: no symptoms reported Respiratory: States: no symptoms reported Cardiology: States: no symptoms reported Gastrointestinal/Abdominal: States: no symptoms reported Genitourinary: States: no symptoms reported Musculoskeletal: States: see HPI Skin: States: no symptoms reported Neurological: States: no symptoms reported Past Medical History (General) - Patient Medical History Hx Seizures: No Hx Stroke: No Hx Dementia: No Hx Asthma: No Hx of COPD: No Hx Cardiac Disorders: No Hx Congestive Heart Failure: No Hx Pacemaker: No Hx Hypertension: Yes Hx Thyroid Disease: No Hx Diabetes: No Hx Gastroesophageal Reflux: No Hx Renal Disease: No Hx Cancer: No Hx of HIV: No Hx Hepatitis C: No Hx MRSA: No MRSA Source:: Wound Surgical History: appendectomy, tonsillectomy, Hysterectomy, other - Vaccination History Hx Tetanus, Diphtheria Vaccination: No Hx Influenza Vaccination: No Hx Pneumococcal Vaccination: No - Social History Hx Tobacco Use: No Hx Chewing Tobacco Use: No Hx Alcohol Use: No Hx Substance Use: No Hx Substance Use Treatment: No Hx Depression: No Hx Physical Abuse: No Hx Emotional Abuse: No Hx Suspected Abuse: No - Activities of Daily Living Patient Lives Alone: No - family Grooming Ability: Independent Eating (Feeding) Ability: Independent Toileting Ability: Independent - Female History Patient : No Family Medical History - Family History Mother Family History: No Known Living Status: Hx Family Asthma: No Hx Family Congestive Heart Failure: No Hx Family Hypertension: No Hx Family Stroke: No Hx Cardiac Disease: Yes Hx Family Diabetes: No Hx Family Cancer: No Physical Exam - Physical Exam General Appearance: Alert, No apparent distress Eyes, Ears, Nose, Throat: PERRL/EOMI, normal ENT inspection Neck: non-tender, supple Cardiovascular/Respiratory: regular rate, rhythm, no M/R/G, normal peripheral pulses, normal breath sounds Gastrointestinal/Abdominal: non-tender Back: normal inspection, no CVA tenderness, no vertebral tenderness Thigh/Hip: bone tenderness - left hip, limited ROM - pain, soft tissue tenderness Leg: normal inspection, non-tender, no evidence of injury Knee: normal inspection, non-tender, no evidence of injury Ankle: normal inspection, non-tender, no evidence of injury Foot: normal inspection, non-tender, no evidence of injury DTR - Lower Extremities: 2+: Patellar, left, Patellar, right Neuro/Tendon: normal sensation, normal motor functions, normal tendon functions , other - rom painful hip left and SLR 45 degrees Mental Status: alert, oriented x 3 Skin: normal color, warm/dry Progress - Progress Progress: 04/28/17 18:54 Last Vital Signs Temp Pulse 75 04/28/17 16:44 Resp 18 04/28/17 16:48 BP 152/68 04/28/17 16:44 Pulse Ox 98 04/28/17 16:44 - EKG/XRAY/CT XRAY: lumbar spine-degenerative changes;non healing fracture left pubis - old fracture left pubic ramus Departure - Departure Clinical Impression: Left leg pain Fracture of pubis with delayed healing Qualifiers: Sublocation of pubis: other portion of pubis Fracture type: closed Laterality: left Qualified Code(s): S32.592G - Other specified fracture of left pubis, subsequent encounter for fracture with delayed healing Time of Disposition: 20:36 Condition: Fair Activity: no pushing/pulling with affected limb Home Medications: Ambulatory Orders RX: Furosemide Tab 40Mg (ER Disp) [Lasix 40mg Tab (ER Dispense)] 40 mg PO DAILY 08/28/12 RX: Gabapentin [Neurontin] 900 mg PO BEDTIME 08/28/12 RX: Atorvastatin Calcium [Lipitor] 10 mg PO BEDTIME 12/13/15 RX: Hydroxyzine HCl 25 mg PO Q4HR PRN 12/13/15 RX: Acetaminophen [Tylenol] 500 mg PO Q6HR PRN 12/23/15 RX: Docusate Sodium [Colace] 1 each PO DAILY PRN 12/23/15 RX: Hydrocodone-Acetaminophen 1 tab PO Q4HR PRN 12/23/15 RX: Nicotine Patch 21 mg [Habitrol Patch 21mg] 21 mg TOP Q24HR 12/23/15 RX: Cetirizine HCl [Zyrtec] 10 mg PO PRN 04/06/16 RX: Ferrous Gluconate 27 mg PO BEDTIME 04/06/16 RX: Folic Gjcq-Ssjjqgmflt-Bmftglwi [Folbic 2.5-25-2 mg] 1 tab PO BEDTIME RX: Meloxicam 7.5 mg PO DAILY 04/06/16 RX: Nitroglycerin 0.4 mg Tab [Nitrostat] 1 ea SL PRN 04/06/16 RX: Potassium Citrate (Alkalinizer [Potassium Citrate ER] 10 meq PO BID RX: Tramadol HCl 50 mg PO TID PRN #14 tab 04/06/16 RX: Metoprolol Succinate [Toprol Xl] 25 mg PO DAILY 04/25/16 RX: Nitroglycerin [Nitrostat] 1 ea SL WKLY 04/25/16 RX: Potassium Citrate (Alkalinizer [Potassium Citrate ER] 1,080 mg PO DAILY 04/29 RX: Tramadol HCl 50 mg PO DAILY 04/25/16 RX: hydrOXYzine HCl [Atarax] 25 mg PO DAILY 04/25/16 Ciprofloxacin [Cipro] 500 mg PO BID #14 ml 09/28/16
--- NOTE | 2017-04-28 18:19 | RAD ---
EXAM DESCRIPTION: Hip,Left 2 Views CLINICAL HISTORY: hip pain 12/07/2016 COMPARISON: None FINDINGS: 2 views were submitted. No fracture or dislocation is identified. Bone marrow attenuation is unremarkable. Prosthetic left hip appears unchanged in appearance. Lucency at the medial aspect of the left inferior pubic ramus was not clearly seen previously although there was irregularity on the prior exam. Fracture is not excluded and follow-up is recommended. There is also irregularity consistent with at least prior fracture of the left superior pubic ramus. No other acute abnormality. IMPRESSION: Possible left inferior and superior pubic rami fractures. There was irregularity of these regions previously and the majority of this could be sequela of prior injury. However on the first of the two views there is linear lucency not previously seen worrisome for acute on chronic injury at the medial aspect of the left inferior pubic ramus and follow-up is advised.. Electronically signed by: Maury Ramires 04/28/2017 6:17 PM MANAGER [place]
--- NOTE | 2017-04-28 19:53 | CT ---
EXAM DESCRIPTION: Lumbar Spine CLINICAL HISTORY: 86 years Female pain COMPARISON: None. TECHNIQUE: Contiguous axial CT images obtained through the lumbar spine without IV contrast. Reformatted images obtained. This exam was performed according to our department optimization program which includes automated exposure control, adjustment of the mA and/or kv according to patient size and/or use of iterative reconstruction technique. FINDINGS: There is colonic diverticulosis. Extensive bony degenerative changes are seen. There are postoperative changes. There is moderately severe loss of height of the L5-S1 disc and moderate loss of height of the L4-5 disc. There is leftward curvature of the lower lumbar spine. No spondylolysis. There is moderate narrowing of the L4-5 neural foramina bilaterally. No other acute abnormality. IMPRESSION: No acute abnormality identified. Electronically signed by: Maury Ramires 04/28/2017 7:52 PM [facility]
--- NOTE | 2017-04-28 20:01 | CT ---
EXAM DESCRIPTION: Pelvis CLINICAL HISTORY: 86 years Female pain COMPARISON: 09/26/2016. TECHNIQUE: Contiguous axial CT images obtained through the pelvis without IV contrast. Reformatted images obtained. This exam was performed according to our department optimization program which includes automated exposure control, adjustment of the mA and/or kv according to patient size and/or use of iterative reconstruction technique. FINDINGS: Fractures of each inferior pubic ramus are again seen. There is moderate diastases of the left inferior pubic ramus fracture with some callus but there is not clearly osseous union. Degenerative changes involve the lumbar spine along with postoperative changes. Patient motion significantly limits detail. Deras catheter is in the urinary bladder which is collapsed. Cystic Right pubis fractures again seen and appears chronic. No definite acute traumatic injury of the bones is seen. Left prosthetic hip appears intact. There is no hip dislocation. IMPRESSION: No definite acute abnormality identified. There is not yet complete osseous seen at the left inferior pubic ramus fracture and this could be a cause of pain. Electronically signed by: Maury Ramires 04/28/2017 8:00 PM [facility]
[2017-04-28] MEDS ORDERED: traMADol HCL 50 MG (ER DISP) # 6 TABS PO ONE (20:37)
[2017-04-28] MEDS ORDERED: fentaNYL CITRATE INJ 50 MCG/ML AMP IV ONE (20:53)
--- NOTE | 2017-04-28 21:27 | HP ---
SUPERVISING PHYSICIAN: Manny Jones MD CHIEF COMPLAINT: Left leg pain. HISTORY OF PRESENT ILLNESS: Ms. Small is an 86 year-old female patient with a history of having multiple falls in the last two years with a left hip fracture in November of 2015 with surgery performed in [place] secondary to multiple comorbidities as well as a fall in September of this year resulting in bilateral pubic rami fractures. The pubic rami fractures sustained in September, she went through extended therapy through a rehabilitation facility in [place]. She denies that she has had any recent falls within the last two months and today started having some left leg pain when she was standing in her kitchen and turned and felt a sharp pain in her pelvis on the left side. She noted that the pain initially started about three days ago but consistently got worse , to the point today she presented to the Emergency Department for evaluation. Radiographic studies in the Emergency Department showed on a pelvic CT, per radiology interpretation there was note of fractures of each inferior pubic ramus with moderate diastasis on the left inferior pubic ramus fracture with incomplete osseous union. CT of the lumbar spine per radiology interpretation showed no acute abnormalities found. She also had a hip x-ray which per radiology interpretation showed once again, evidence of bilateral pubic rami fractures with a questionable healing on the left. The patient initially in the Emergency Room was to be treated with pain medication but the patient does live by herself and was having difficulty ambulating and was having a significant amount of pain. Given her advanced age and her frail state and the fact that she does live alone, places her at a severe high risk for additional injures for possible falls. Arrangements through the Emergency Room with family members was that the patient was to have her son come to her house to assist with her needs but he is unable to arrive until tomorrow morning. Dr. Thompson, Emergency Room physician, requested the patient be placed in observation for pain control tonight and further evaluation in the morning until arrangements could be made for the patient to go home safely. The patient does note that she does have home health but she is unsure as to which agency she uses. She was admitted in stable condition. PAST MEDICAL HISTORY: 1. Multiple falls resulting in left hip fracture in November 2015 and bilateral rami fracture in September of 2014. 2. History of hypertension. 3. History of an ascending aortic aneurysm, measured up to 4.[address] Morelos. 4. Neuropathies. 5. Chronic dizziness. 6. Chronic tobacco abuse, having stopped since 2014. . 7. History of PE noted after bilateral rami fractures in September of 2016. PAST SURGICAL HISTORY: 1. Orthopedic surgeries to involve the left arm and forearm as well as left hip. 2. Tonsillectomy. 3. Appendectomy. 4. C-sections times two. 5. Cholecystectomy. 6. Hysterectomy. 7. Right shoulder surgery. 8. Left total knee arthroplasty. 9. Left hip replacement surgery. 10. Colonoscopy. CURRENT MEDICATIONS: Patient is unsure as to what medications she actually takes at home. Please see a list of updated medications once they are available in the electronic medical records. ALLERGIES: PENICILLIN, ARTEMIO INHIBITORS, CODEINE. FAMILY HISTORY: Unremarkable. SOCIAL HISTORY: The patient has a significant history of smoking since age 19 and stopped in the summer of 2015, She does live alone in [place]. Her son lives in [place] and he checks on her weekly. She denies any alcohol or illicit drug use. REVIEW OF SYSTEMS: CONSTITUTIONAL: No significant weight loss, fever or chills. HEENT: No headaches, dizziness, nasal congestion, sore throat. CHEST: Denies any shortness of breath, cough. HEART: No significant palpitations, chest pains or syncopal episodes. GASTROINTESTINAL: No nausea, vomiting or diarrhea or constipation or other bowel changes. GENITOURINARY: No dysuria, hematuria or polyuria or other urinary symptoms. NEUROLOGIC: No significant headaches or focal weaknesses. PHYSICAL EXAMINATION: VITAL SIGNS: Temperature 97.9, pulse 71, blood pressure 171/81, respirations 20, saturation 93% on nasal cannula at 2 liters. Admission weight 58.6 kg. GENERAL: The patient appears to be well-nourished, well hydrated and in no acute distress, very comfortable on admission to the medical/surgical floor. HEENT: Tympanic membranes are clear bilaterally. Pharynx is pink, moist without any lesions. NECK: Supple, full range of motion, non-tender with no jugular venous distention. CHEST: Clear to auscultation, just slightly diminished toward the bases with no rhonchi, rales, or wheezes. CARDIOVASCULAR: Regular rate and rhythm without appreciable murmurs, rubs, or gallops. ABDOMEN: Soft, non-tender, positive bowel sounds. EXTREMITIES: No cyanosis, clubbing, or edema. She was able to move all extremities ad akhil. Noted some significant pain with internal and external rotation and extending and flexion of the left leg. There is no obvious internal or external rotation. Pulses do feel strong, no reported sensory deficits. Capillary refills were brisk. Again, she had normal sensation in both legs and some pain with range of motion of the left hip. NEUROLOGIC: She is alert to herself but somewhat confused to her location, she thinks she is in [place] and is unable to identify what year it is but is very pleasant. She actually thought that she was supposed to have hip surgery this morning and on admission to the medical/surgical floor initially was confused to the origin of her hp pain. Facial features were symmetrical. Extraocular movement were within normal limits. There was no notable nystagmus. Cranial nerves II through XII were grossly intact. LABORATORY: Urinalysis in the Emergency Department showed to be within normal limits. CBC showed a normal white count at 6,900, hemoglobin 12.6, hematocrit 37.6, platelet count at 240.000. Differential within normal limits. Chemistries showed normal electrolytes with a slightly elevated C02 of 33, BUN 25, creatinine 1.1 with glucose of 99. Liver functions showed to be within normal limits. MICROBIOLOGY: MRSA/cultures pending. RADIOLOGY: Lumbar spinal CT per radiology interpretation - no acute abnormalities were identified. Pelvic CT after hip x-ray showed bilateral pubic rami fractures on CT was noted, no definite acute injury identified but there was note of incomplete osseous formation of the left inferior pubic ramus followup that could be the cause of her pain. No other acute findings were noted. ASSESSMENT: 1. Left leg and pelvic pain secondary to the nonhealing chronic pubic rami fracture that was sustained in September of 2016. The patient has intractable pain requiring more aggressive pain management. 2. Mild dehydration as noted by a moderate insufficiency with an elevated BUN. 3. History of hypertension. 4. History of ascending aortic aneurysm measured at 4.[address] Morelos. 5. Neuropathies, on Gabapentin. 6. Chronic dizziness. 7. History of previous chronic tobacco abuse having stopped in 2015. PLAN: The patient will be placed in observation tonight for pain management and close monitoring with anticipation of discharging home to her son tomorrow. Again, she has no arrangements tonight for assistance and is a severe fall risk, thus it benefits to stay at least in observation until she can have assistance at home with family members. Her son is supposed to have come from [place] to assist her tomorrow. Will update her medications and resume as they are available. I will start her on DVT prophylaxis given her previous history of multiple falls and history of a previous small PE noted on CT findings of September 2016. Will attempt to get a physical therapy evaluation before she is discharged if available. I think she has home health but she is unsure. We will need to followup on this prior to discharge. Length of stay is estimated to be one to two days, hopefully discharging later tomorrow once she has arrangements for family members to insure safety at home. Once discharge, she will need close followup with Dr. Morelos within the next week and will continue to follow and treat appropriately until discharge. #[id number] [facility]
[2017-04-28] MEDS ORDERED: ACETAMINOPHEN 325 MG TAB PO PRN (22:57)
[2017-04-28] MEDS ORDERED: IV SET AND CAP CHANGE INJ INJ SCH (23:00)
--- NOTE | 2017-04-29 00:01 | PCM.CORE ---
Physician DVT/VTE - Nurse DVT Assessment & Total Each Risk Factor Represents 3 Points: Age over 75 years, Hx of DVT/PE Each Risk Factor Represents 1 Point: Medical PT at Bed Rest, Hx of smoking past year Each Risk Factor is 1 Point: Serious Lung disease (pnemonia <1month, COPD, emphysema,etc) DVT Assessment Score: 9 - 5 or more Very High Risk Treatments: Early Ambulation *, Sequential Compression Device Pharmacological: Enoxaparin 40mg SQ Daily
[2017-04-29] MEDS: MORPHINE SULFATE INJ 10 MG/ML VIAL IV PRN ×2 (00:13→17:37)
[2017-04-29] MEDS: SODIUM CHLORIDE 0.9% (FLUSH) 10 ML SYG IV PRN ×2 (00:13→21:05)
[2017-04-29] MEDS ORDERED: ENOXAPARIN SODIUM 40 MG/0.4 ML SYG SUBCU SCH (00:30)
--- NOTE | 2017-04-29 13:12 | PN ---
DATE: 04/29/17 SUPERVISING PHYSICIAN: Manny Jones M.D. SUBJECTIVE: Ms. Naima Small was placed in Observation for an old unstable pelvic fracture, nonhealing, of the pubic rami that she sustained in September. She is still having intractable pain. She was seen today sitting up in bed. Her son was at her bedside. She complains of weakness although she states she feels well but is having pain in her left pelvic area, especially with standing and ambulation. Her son lives in [place]. She lives at home alone. She is a patient of Dr. Pradip Morelos who sees her on a regular basis. Home health does come to the house periodically. OBJECTIVE: VITAL SIGNS: 97.8 oral temperature, pulse 66, blood pressure 137/76 , respiratory rate 18, oxygen saturation 97% on room air. Intake and output orally she took in 400 mL. She had 1375 out. Her weight yesterday was 53 kg, today it was 58 kg. There are no new labs to review. GENERAL: Ms. Small is a well-nourished, well-developed female in no acute distress. She does appear to be uncomfortable but not in severe pain. Neck is soft and supple. She has full range of motion. No tenderness. No jugular venous distention. CHEST: Clear to auscultation bilaterally with no rales, rhonchi or wheezing. Respiratory effort is even and unlabored. CARDIOVASCULAR: Heart sounds normal S1 and S2, regular rate and rhythm. No murmurs, clicks or rubs. Peripheral pulses are palpable bilaterally with no edema noted. ABDOMEN: Soft, non- tender. Bowel sounds are active in all 4 quadrants. EXTREMITIES: No cyanosis, clubbing or edema. She is able to move all extremities at will. There is some pain with internal and external rotation and extension and flexion of the left leg. There is no obvious internal or external rotation of the leg at rest. Pulses are palpable with no sensory deficits. Capillary refill is brisk upper and lower extremities bilaterally. NEUROLOGIC: Awake, alert and oriented times three. Extraocular movements are intact. There is no nystagmus. 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 ASSESSMENT: 1. Left leg and pelvic pain secondary to nonhealing chronic pubic rami fracture that was sustained in September of 2016. The patient has intractable pain requiring more aggressive pain management. 2. Mild dehydration as noted by a moderate insufficiency with an elevated BUN. 3. History of hypertension. 4. History of ascending aortic aneurysm measured at 4.[address] Morelos. 5. Neuropathies, on Gabapentin. 6. Chronic dizziness. 7. History of previous chronic tobacco abuse having stopped in 2015. PLAN: The patient will be admitted today for continued pain management and [facility] consultation for placement in a rehab facility for discharge. Physical Therapy will be consulted for an evaluation and treatment. Her son is unable to stay with her in her home and she does not want to move in with him, and he indicates that he still would not be available to her at all times if she were at his home, therefore a rehab facility for more aggressive physical therapy is warranted at this time. Dr. Manny Jones is available for consultation by phone as needed. [facility][id number] [facility]
--- NOTE | 2017-04-29 13:12 | RAD ---
Procedure: XR PELVIS 1-2 VIEWS Exam Date: 04/29/2017 12:51 PM EDI MANAGER Ordering Provider: SHARITA DAVIS IV Clinical Indication: reevaluation of pelvis. Pelvic pain Comparison: CT April 28, 2017. Findings: Bones are diffusely osteopenic. There is evidence of age indeterminate sacral insufficiency fracture involving the left sacral ala. Mild right hip degenerative joint disease. There is evidence of a left hip hemiarthroplasty. No evidence of hardware failure or loosening. IMPRESSION: Age indeterminate left sacral insufficiency fracture. Intact left hip hemiarthroplasty. Electronically signed by: Yoshi Aguillon MD 04/29/2017 1:11 PM EDI MANAGER
[2017-04-29] MEDS ORDERED: ENOXAPARIN SODIUM 40 MG/0.4 ML SYG SUBCU ONE (19:56)
[2017-04-29] MEDS: ENOXAPARIN SODIUM 40 MG/0.4 ML SYG SUBCU SCH (21:05)
[2017-04-30] MEDS: SODIUM CHLORIDE 0.9% (FLUSH) 10 ML SYG IV PRN ×2 (02:51→23:11)
[2017-04-30] MEDS: MORPHINE SULFATE INJ 10 MG/ML VIAL IV PRN ×3 (02:52→23:12)
[2017-04-30] MEDS ORDERED: ACETAMINOPHEN 500 MG TAB PO PRN (12:42)
[2017-04-30] MEDS ORDERED: DOCUSATE SODIUM 100 MG CAP PO PRN (12:42)
[2017-04-30] MEDS ORDERED: traMADol HCL 50 MG TAB PO PRN (12:42)
[2017-04-30] MEDS ORDERED: NITROGLYCERIN 0.4 MG 25 EA TAB SL PRN (12:42)
[2017-04-30] MEDS ORDERED: CETIRIZINE HCL 10 MG TAB PO PRN (12:42)
[2017-04-30] MEDS ORDERED: hydrOXYzine HCl 25 MG TAB PO PRN (12:42)
[2017-04-30] MEDS ORDERED: PROMETHAZINE HCL 25 MG TAB PO PRN (12:42)
[2017-04-30] MEDS ORDERED: CALCITONIN-SALMON NASAL SPRAY 2,200 IU/ML BOTTLE NAS SCH (12:44)
[2017-04-30] MEDS ORDERED: FUROSEMIDE 40 MG TAB PO SCH (13:00)
[2017-04-30] MEDS ORDERED: POTASSIUM CHLORIDE 10 MEQ TAB PO SCH (13:30)
--- NOTE | 2017-04-30 13:53 | PN ---
DATE: 04/30/17 SUPERVISING PHYSICIAN: Manny Jones M.D. SUBJECTIVE: Ms. Small was admitted yesterday after being on Observation for an old unstable pelvic fracture nonhealing of the pubic rami that she sustained in September of this year. She is still having intractable pain. She was being seen yesterday by Physical Therapy to evaluate her condition. She was unable to stand on her own due to the pelvic pain. Her son was at the bedside yesterday. We discussed arrangements to transfer Ms. Small to [place] to a rehab hospital for rehabilitation and physical therapy. He agreed this would probably be better for his mother. Today, she denies any shortness of breath, chest pain, dizziness. She is not able to stand still today. She denies any constipation at present. OBJECTIVE: VITAL SIGNS: 97.5 temperature, 93 pulse, 119/75 blood pressure, 18 respiratory rate, 96% oxygen saturation on room air. Intake and output: She had 989 in, 1100 out. Her weight today was 58.46 kg. The only new labs today were the MRSA results came back from the nasal swab as positive. There is no new x-ray. GENERAL: Ms. Small is a well-nourished, well-developed female in no acute distress. She does, however, appear to be uncomfortable but not in severe pain. NECK: Soft, supple. She has full range of motion. No tenderness. No jugular venous distention. CHEST: Clear to auscultation bilaterally with no rales, rhonchi or wheezing. Respiratory effort is even and unlabored. CARDIOVASCULAR: Heart sounds normal S1 and S2, regular rate and rhythm. No murmurs, clicks or rubs. Peripheral pulses are palpable bilaterally with no edema noted. ABDOMEN: Soft, non-tender. Bowel sounds are active in all four quadrants. EXTREMITIES: No cyanosis, clubbing or edema. She is able to move all extremities at will. There is some pain with internal and external rotation as well as extension and flexion of the left leg. There is no obvious internal or external rotation of the leg at rest. Pulses are palpable with no sensory deficit. Capillary refill is brisk in the upper and lower extremities bilaterally. NEUROLOGIC: She is awake, alert and oriented times two. She was a little confused about where she was initially, however after a few minutes she was oriented to place. Extraocular movements are intact. There is no nystagmus. Hand software maintenance engineer are equal strength bilaterally. Her lower extremities are equal strength bilaterally, although she does have pain with the left leg. ASSESSMENT: 1. Left leg and pelvic pain secondary to nonhealing chronic pubic rami fracture that was sustained in September of 2016. The patient has intractable pain requiring more aggressive pain management. 2. Mild dehydration as noted by a moderate insufficiency with an elevated BUN. 3. History of hypertension. 4. History of ascending aortic aneurysm measured at 4.[address] Morelos. 5. Neuropathies, on Gabapentin. 6. Chronic dizziness. 7. History of previous chronic tobacco abuse having stopped in 2015. PLAN: Ms. Small will be continued to be monitored and her pain management will be maintained. [facility] consultation for placement in rehab facility upon discharge and physical therapy for strength and conditioning. Manny Jones M.D. is available for consultation by phone as needed. [facility][id number] [facility]
[2017-04-30] MEDS: ISOSORBIDE MONONITRATE (IMDUR) 30 MG TAB PO SCH (15:41)
[2017-04-30] MEDS: FOLIC ACID,B6,B12 1 TAB PO SCH (15:42)
[2017-04-30] MEDS: MELOXICAM 7.5 MG TAB PO SCH (15:42)
[2017-04-30] MEDS: diltiaZEM HCL TAB 30 MG TAB PO SCH ×2 (15:42→21:03)
[2017-04-30] MEDS: ASPIRIN TABLET 325 MG TAB PO SCH (15:42)
[2017-04-30] MEDS ORDERED: METOPROLOL SUCCINATE XL 25 MG TAB PO SCH (21:00)
[2017-04-30] MEDS ORDERED: GABAPENTIN 300 MG CAP PO SCH (21:00)
[2017-04-30] MEDS ORDERED: ATORVASTATIN 10 MG TAB PO SCH (21:00)
[2017-04-30] MEDS: ENOXAPARIN SODIUM 40 MG/0.4 ML SYG SUBCU SCH (21:02)
[2017-04-30] MEDS: SODIUM CHLORIDE 0.9% (FLUSH) 10 ML SYG IV SCH (21:03)
[2017-05-01] MEDS: MELOXICAM 7.5 MG TAB PO SCH (10:29)
[2017-05-01] MEDS: diltiaZEM HCL TAB 30 MG TAB PO SCH (10:29)
[2017-05-01] MEDS: ASPIRIN TABLET 325 MG TAB PO SCH (10:29)
[2017-05-01] MEDS: SODIUM CHLORIDE 0.9% (FLUSH) 10 ML SYG IV SCH (10:29)
[2017-05-01] MEDS: FOLIC ACID,B6,B12 1 TAB PO SCH (10:29)
[2017-05-01] MEDS: ISOSORBIDE MONONITRATE (IMDUR) 30 MG TAB PO SCH (10:29)
[2017-05-01 11:45] VITALS: BP 121/78; TEMP 96.7; O2SAT 99
--- NOTE | 2017-05-11 13:38 | DS ---
SUPERVISING PHYSICIAN: Sae Shilrey MD DISCHARGE DIAGNOSIS: 1. Left leg and pelvic pain secondary to nonhealing chronic pubic rami fracture that was sustained in September of 2016. The patient had intractable pain requiring more aggressive pain management and is now stabilized. 2. Mild dehydration, improved. 3. Hypertension. 4. History of ascending aortic aneurysm measured at 4.8 cm, followed by Dr. Morelos. 5. Neuropathies, on gabapentin. 6. Chronic dizziness. 7. History of previous chronic tobacco abuse having stopped in 2016. HISTORY OF PRESENT ILLNESS: This is an 86-year-old female patient who has a history of multiple falls in the last two years with a left hip fracture in November of 2015 with surgery performed in [place] secondary to multiple comorbidities as well as a fall in September of this year resulting in bilateral pubic rami fractures. The pubic rami fractures sustained in September, she went through extended therapy through a rehabilitation facility in [place]. She denied any falls within the last two months, but started having some left leg pain while standing in her kitchen and felt a sharp pain in her pelvis. The pain initially started three days prior to admission, but it progressively worsened. Radiographic studies in the Emergency Department showed on a pelvic CT, there were fractures of each inferior pubic ramus with moderate diastasis on the left inferior pubic ramus fracture with incomplete osseous union. CT of the lumbar spine per radiologic interpretation showed no acute abnormalities found. She also had a hip x-ray that showed once again evidence of bilateral pubic rami fractures with a questionable healing on the left. She was in significant pain and given her advanced age and frail state and that she lives alone, she was placed in observation in the hospital for pain control and further evaluation and hopefully to be evaluated for a rehab facility. HOSPITAL COURSE: Her pain was controlled mostly during her stay. She has been evaluated by the [facility] in [place], [place], and she will be discharged to that facility today. DISCHARGE PLAN: the patient will be discharged to the [facility]. She is to continue on her previous medications. Her son lives in the area and will be there to assist her. Her activity level will be per physical therapy and she will need followup with Dr. Morelos, her primary care physician, on discharge from the facility. She is to return to the hospital or call Dr. Morelos's office for any problems or further complications. DISCHARGE MEDICATIONS: 1. Neurontin. 2. Lipitor. 3. Colace. 4. Tylenol. 5. Zyrtec. 6. Meloxicam. 7. Tramadol. 8. Hydroxyzine. 9. Potassium citrate. 10. Nitroglycerin. 11. Metoprolol succinate. 12. Aspirin. 13. Isosorbide. 14. Diltiazem. 15. Folbic. 16. Phenergan tablets. 17. Nystatin. 18. Lomotil. 19. Furosemide. [id number]
== END 2017-05-01 13:25 ==
LOC: ER 16:43 → MS 21:26
PROVIDERS: ADMIT Nurse Practitioner Family; ATTEND Nurse Practitioner Acute Care
DX: G89.11 Acute pain due to trauma (principal); S32.592G Other specified fracture of left pubis, subsequent encounter for fracture with delayed healing; W18.39XD Other fall on same level, subsequent encounter; E86.0 Dehydration; I10 Essential (primary) hypertension; I71.4 Abdominal aortic aneurysm, without rupture; G62.9 Polyneuropathy, unspecified; R42 Dizziness and giddiness; M48.061 Spinal stenosis, lumbar region without neurogenic claudication; Z66 Do not resuscitate; Z96.642 Presence of left artificial hip joint; Z91.81 History of falling; Z79.1 Long term (current) use of non-steroidal anti-inflammatories (NSAID); Z79.899 Other long term (current) drug therapy; Z88.0 Allergy status to penicillin; Z88.6 Allergy status to analgesic agent; Z88.8 Allergy status to other drugs, medicaments and biological substances; Z86.711 Personal history of pulmonary embolism; Z87.891 Personal history of nicotine dependence; Z60.2 Problems related to living alone
CPT/HCPCS: 36415; 72131; 72170; 72192; 73502; 80053; 81001; 85025; 87070; 87077; 87186; 94760 ×5; 96372 ×2; 96374; 96375; 96376 ×2; 97110; 97162; 99284; G0378; G8978; G8979; J1650 ×3; J2270 ×5; J3010

== ENCOUNTER → 2017-05-18 | Outpatient (CLI) | payer MEDICARE | END | disposition home or self-care (01) | LOC: GOCC 21:05 | PROVIDERS: ATTEND Family Medicine | DX: N39.0 Urinary tract infection, site not specified (principal) ==

== ENCOUNTER → 2017-05-30 | Outpatient (CLI) | payer MEDICARE ==
--- NOTE | 2017-05-30 15:53 | CT ---
EXAM DESCRIPTION: CTA Chest: Computed tomography. CLINICAL HISTORY: 86 years Female, THORACIC AORTIC ANEURYSM, W/O RUPTURE COMPARISON: CTA of the thorax and thoracic aorta 12/12/2015. TECHNIQUE: Contiguous axial slices of the chest at 5 mm thickness without and bolus infusion of IV contrast. Coronal and sagittal 2.0 mm reconstructions. Volume rendering 3-D MIP images at 15 mm intervals around the descending thoracic aorta axis. FINDINGS: The ascending thoracic aorta measures approximately 4.6 x 4.7 cm. No contrast extravasation. At the level of the right brachiocephalic artery origin, dimensions are 5.0 x 4.5 cm. This was approximately 4.7 x 4.5 cm on the prior study. No contrast extravasation but numerous atherosclerotic calcifications are noted. No significant ulcers no evidence of dissection. Atherosclerotic calcification of the origins of the brachiocephalic vessels. Coronary artery calcifications are again seen. Small lymph nodes in the mediastinum and bilateral chelsy. No enlarged lymph nodes in the axillary regions or the base of the neck. Heterogeneous enhancement of the thyroid gland. Bilateral sternoclavicular joint degeneration. Small radiolucencies are noted in the lung parenchyma more prominent in the upper lobes. Minimal septal thickening in the segments of the bases. Bilateral pleural thickening. No pleural effusion or pneumothorax. No abnormal nodules masses or infiltrates. Normal size and enhancement of the included adrenal glands spleen. No fluid in the included subdiaphragmatic retroperitoneal space. Medication in the stomach. Prominent renal pyramids. Atherosclerotic involvement of the abdominal aorta and the major vessels originating from the upper aorta. Minimal spondylosis of the included thoracic spine and loss of bone density. No compression abnormalities. IMPRESSION: 1. Dilation of the ascending arch of the thoracic aorta approximately 10% since the prior study November 2015. Diffuse atherosclerotic calcifications in the thoracic and upper abdominal aorta. No significant ulcer formation and no dissection. 2. Mild centrilobular emphysematous changes in the upper lung lobes. Pleural thickening and subsegmental septal thickening in the lung bases. Electronically signed by: Maury Villeda MD 05/30/2017 3:51 PM APPIAN DEVELOPER
== END | disposition home or self-care (01) ==
LOC: CT 09:35
PROVIDERS: ATTEND Family Medicine
DX: I71.2 Thoracic aortic aneurysm, without rupture (principal)

== ENCOUNTER 2017-06-08 16:37 | Emergency (ER) | payer MEDICARE ==
[2017-06-08 16:59] VITALS: TEMP 98.4; O2SAT 90
--- NOTE | 2017-06-08 18:02 | ED.PDOC ---
History of Present Illness - General Chief Complaint: Trauma Stated Complaint: fall Time Seen by Provider: 06/08/17 17:41 Source: patient Exam Limitations: no limitations - History of Present Illness Initial Comments: Naima Small 86 y/o female stated that she slipped on her wheelchair tonight at the custodial causing skin tear on her left hand and right leg afte coming in contact with part of the wheelchair handle Timing/Duration: just prior to arrival Severity: moderate Location: hands - left hand, extremities - right leg Improving Factors: nothing Worsening Factors: nothing Associated Symptoms: other - skin tear Allergies/Adverse Reactions: Allergies ARTEMIO Inhibitors Allergy (Verified 06/08/17 16:59) Vomitting Codeine Allergy (Verified 06/08/17 16:59) Penicillins Allergy (Verified 06/08/17 16:59) Vomitting Home Medications: Ambulatory Orders Gabapentin [Neurontin] 600 mg PO BEDTIME 08/28/12 Atorvastatin Calcium [Lipitor] 10 mg PO BEDTIME 12/13/15 Acetaminophen [Tylenol] 500 mg PO Q6HR PRN 12/23/15 Docusate Sodium [Colace] 1 each PO DAILY PRN 12/23/15 Cetirizine HCl [Zyrtec] 10 mg PO DAILY PRN 04/06/16 Meloxicam 7.5 mg PO DAILY 04/06/16 Tramadol HCl 50 mg PO TID PRN #14 tab 04/06/16 Metoprolol Succinate [Toprol Xl] 25 mg PO BEDTIME 04/25/16 Nitroglycerin [Nitrostat] 1 ea SL Q5M PRN MDD 3 04/25/16 Potassium Citrate (Alkalinizer [Potassium Citrate ER] 1,080 mg PO NIRAJ-OTH-DAY hydrOXYzine HCl [Atarax] 25 mg PO Q4HR PRN 04/25/16 Aspirin 325 mg PO QD 04/29/17 Diltiazem HCl 30 mg PO BID 04/29/17 Diphenoxylate/Atropine [Lomotil Tab] 1 - 2 tablet PO PRN PRN MDD 2.5-0.025 04/29 Folic Eoke-Hsmhpbinuz-Ddaqdjjk [Folbic 2.5-25-2 mg] 1 tab PO DAILY 04/29/17 Isosorbide Mononitrate [Isosorbide Mononitrate ER] 30 mg PO DAILY 04/29/17 Nystatin Powder 15 gm TOP BID 04/29/17 Promethazine Tab [Phenergan Tablet] 25 mg PO Q6H PRN 04/29/17 Furosemide Tab [Lasix Tab] 40 mg PO NIRAJ-OTH-DAY 04/30/17 Review of Systems - Review of Systems Constitutional: States: no symptoms reported EENTM: States: no symptoms reported Respiratory: States: no symptoms reported Cardiology: States: no symptoms reported Gastrointestinal/Abdominal: States: no symptoms reported Genitourinary: States: no symptoms reported, discharge Skin: States: see HPI Neurological: States: no symptoms reported Past Medical History (General) - Patient Medical History Hx Seizures: No Hx Stroke: No Hx Dementia: No Hx Asthma: No Hx of COPD: No Hx Cardiac Disorders: No Hx Congestive Heart Failure: No Hx Pacemaker: No Hx Hypertension: No Hx Thyroid Disease: No Hx Diabetes: No Hx Gastroesophageal Reflux: No Hx Renal Disease: No Hx Cancer: No Hx of HIV: No Hx Hepatitis C: No Hx MRSA: Yes - ..... MRSA Source:: Wound Surgical History: appendectomy, cholecystectomy, tonsillectomy, Hysterectomy - Vaccination History Hx Tetanus, Diphtheria Vaccination: No Hx Influenza Vaccination: No Hx Pneumococcal Vaccination: No - Social History Hx Tobacco Use: No Hx Chewing Tobacco Use: No Hx Alcohol Use: No Hx Substance Use: No Hx Substance Use Treatment: No Hx Depression: No Hx Physical Abuse: No Hx Emotional Abuse: No Hx Suspected Abuse: No - Activities of Daily Living Residential/Assisted Living (if applicable):: [facility] - Female History Patient is a Female of Child Bearing Age (10 -59 yrs old): No Patient : No Family Medical History - Family History Mother Family History: No Known Living Status: Hx Family Asthma: No Hx Family Congestive Heart Failure: No Hx Family Hypertension: No Hx Family Stroke: No Hx Cardiac Disease: Yes Hx Family Diabetes: No Hx Family Cancer: No Physical Exam - Physical Exam General Appearance: Alert, Comfortable, No apparent distress Eyes, Ears, Nose, Throat Exam: PERRL/EOMI, normal ENT inspection Neck: non-tender, normal inspection Cardiovascular/Chest: normal peripheral pulses, regular rate, rhythm Respiratory: chest non-tender, lungs clear Gastrointestinal/Abdominal: normal bowel sounds, non tender, soft Back Exam: normal inspection, no CVA tenderness Extremity: non-tender, no calf tenderness Skin Exam: warm/dry Skin Problem Location: other - skin tear Skin Character: other - skin tear Progress - Progress Progress: 06/08/17 18:05 Last Vital Signs Temp 98.4 F 06/08/17 16:45 Pulse 75 06/08/17 16:45 Resp 20 06/08/17 16:45 BP 144/73 06/08/17 16:45 Pulse Ox 90 L 06/08/17 16:45 Procedures - Laceration/Wound Repair Left Hand Wound Length (cm): 3 - skin tear Wound's Depth, Shape: superficial Wound Explored: no foreign body removed Betadine Prep?: No - hibiclens Wound Repaired With: steri-strips Number of Sutures: 5 - steri strips Layer Closure?: No Sterile Dressing Applied?: Yes Departure - Departure Clinical Impression: Skin tear of hand without complication Qualifiers: Encounter type: initial encounter Laterality: left Qualified Code(s): S61.412A - Laceration without foreign body of left hand, initial encounter Time of Disposition: 18:07 Disposition: Discharge to SNF Departure Forms: ED Discharge - Pt. Copy, Patient Portal Self Enrollment Instructions: Skin Wound, How to Care for a Surgical Wound-Skin Adhesive Referrals: Jose Alberto Morelos MD [Primary Care Provider] - 1-2 Weeks Home Medications: Ambulatory Orders Gabapentin [Neurontin] 600 mg PO BEDTIME 08/28/12 Atorvastatin Calcium [Lipitor] 10 mg PO BEDTIME 12/13/15 Acetaminophen [Tylenol] 500 mg PO Q6HR PRN 12/23/15 Docusate Sodium [Colace] 1 each PO DAILY PRN 12/23/15 Cetirizine HCl [Zyrtec] 10 mg PO DAILY PRN 04/06/16 Meloxicam 7.5 mg PO DAILY 04/06/16 Tramadol HCl 50 mg PO TID PRN #14 tab 04/06/16 Metoprolol Succinate [Toprol Xl] 25 mg PO BEDTIME 04/25/16 Nitroglycerin [Nitrostat] 1 ea SL Q5M PRN MDD 3 04/25/16 Potassium Citrate (Alkalinizer [Potassium Citrate ER] 1,080 mg PO NIRAJ-OTH-DAY hydrOXYzine HCl [Atarax] 25 mg PO Q4HR PRN 04/25/16 Aspirin 325 mg PO QD 04/29/17 Diltiazem HCl 30 mg PO BID 04/29/17 Diphenoxylate/Atropine [Lomotil Tab] 1 - 2 tablet PO PRN PRN MDD 2.5-0.025 04/29 Folic Kdjm-Rdoxivyobb-Fplkqvbg [Folbic 2.5-25-2 mg] 1 tab PO DAILY 04/29/17 Isosorbide Mononitrate [Isosorbide Mononitrate ER] 30 mg PO DAILY 04/29/17 Nystatin Powder 15 gm TOP BID 04/29/17 Promethazine Tab [Phenergan Tablet] 25 mg PO Q6H PRN 04/29/17 Furosemide Tab [Lasix Tab] 40 mg PO NIRAJ-OTH-DAY 04/30/17 Additional Instructions: Remove dressing in 10 days;No change unless wet or very dirty in 10 days
[2017-06-08 18:21] VITALS: BP 153/87
== END 2017-06-08 18:21 ==
LOC: ER 16:37
DX: S61.412A Laceration without foreign body of left hand, initial encounter (principal); Z79.82 Long term (current) use of aspirin; W05.0XXA Fall from non-moving wheelchair, initial encounter; Y92.129 Unspecified place in nursing home as the place of occurrence of the external cause

== ENCOUNTER 2017-06-17 19:20 | Emergency (ER) | payer MEDICARE ==
[2017-06-17 19:42] VITALS: TEMP 98.9
[2017-06-17] MEDS ORDERED: POTASSIUM CHLORIDE ELIXIR 20 MEQ/15 ML UD PO ONE (20:17)
--- NOTE | 2017-06-17 20:58 | RAD ---
EXAM DESCRIPTION: Femur,Left AP and lateral views of the left femur CLINICAL HISTORY: 86 years, Female, fall with pain COMPARISON: Portable AP view April 29, 2017 FINDINGS: There is left hip hemiarthroplasty hardware without evidence of hardware failure. There is total knee arthroplasty hardware without evidence of hardware failure The patient is diffusely osteopenic. There is otherwise no acute fracture or dislocation. There is no focal soft tissue swelling. There are no retained opaque foreign bodies. There are vascular calcifications throughout the superficial femoral and popliteal arteries. The bony pelvis is grossly normal in appearance. IMPRESSION: 1. Osteopenia, otherwise no acute fracture or dislocation. 2. Left hip and knee arthroplasty hardware without evidence of hardware failure. Electronically signed by: Maile Ruelas MD 06/17/2017 8:57 PM SALON COORDINATOR Workstation: [id number]
--- NOTE | 2017-06-17 20:58 | RAD ---
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 Total left hip arthroplasty. Old fracture of the left inferior and superior pubic rami. Electronically signed by: Manny Dumont MD 06/17/2017 8:58 PM METAL PATTERNMAKER APPRENTICE
--- NOTE | 2017-06-17 21:00 | RAD ---
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 Old fractures of the bilateral inferior pubic rami and likely of the left superior pubic ramus. No acute fracture of the pelvic ring is identified. Symmetric SI joints. Degenerative changes of the right hip. Electronically signed by: Manny Dumont MD 06/17/2017 8:59 PM MECHANIC AND WELDER
[2017-06-17] MEDS ORDERED: MORPHINE SULFATE INJ 10 MG/ML VIAL IV ONE (21:02)
--- NOTE | 2017-06-17 21:02 | CT ---
EXAM DESCRIPTION: Lumbar Spine 06/17/2017 8:57 PM DESOLDERER CLINICAL HISTORY: 86 years, Female, fall with pain and loss of sensation below knee COMPARISON: None TECHNIQUE: Volumetric CT acquisition was performed through the lumbar spine. Images in the axial, coronal, and sagittal planes were presented for interpretation. This exam was performed according to our departmental dose-optimization program, which includes automated exposure control, adjustment of the mA and/or kV according to patient size and/or use of iterative reconstruction technique. FINDINGS: There are 5 lumbar type vertebral bodies in normal anatomic alignment. There is no evidence of acute fracture or dislocation. There are degenerative changes throughout the lumbar spine with disc space narrowing and facet hypertrophy. There are surgical changes from prior L4 and L5 laminectomy. At the L1/L2 level, there is normal disk space height, there is no significant canal or neuroforaminal narrowing. At the L2/L3 level, there is normal disk space height, there is no significant canal or neuroforaminal narrowing. At the L3/L4 level, there is loss of disc space height with a moderate concentric disc bulge. There is facet and ligamentous hypertrophy bilaterally. There is moderate neural foraminal narrowing bilaterally At the L4/L5 level, there is loss of disc space height with a moderate broad-based disc bulge. There is facet and ligamentous hypertrophy bilaterally. There is severe neuroforaminal narrowing bilaterally At the L5/S1 level, there is loss of disc space height with vacuum disc phenomenon. There is facet and ligamentous hypertrophy bilaterally. There is severe neuroforaminal narrowing bilaterally. The gallbladder is surgically absent. There are moderate vascular calcifications of the abdominal aorta and iliac arteries. There is mild ectasia of the proximal infrarenal aorta measuring 2.2 cm in diameter (the normal proximal segment measures 1.9 cm). The paravertebral and prevertebral soft tissues are normal. The visualized soft tissue structures of the abdomen are normal. The visualized vasculature is normal. There are moderate sigmoid colonic diverticula noted. IMPRESSION: 1. No acute fracture or dislocation of the lumbar spine. 2. Surgical and degenerative changes, most pronounced at the L4/L5 and L5/S1 levels. Electronically signed by: Maile Ruelas MD 06/17/2017 9:01 PM DESOLDERER Workstation: [id number]
--- NOTE | 2017-06-17 21:42 | ED.PDOC ---
History of Present Illness - General Chief Complaint: Trauma Stated Complaint: fell, mid back pain, left leg pain Time Seen by Provider: 06/17/17 19:38 Source: patient, EMS notes reviewed, RN/MD, halfway records Exam Limitations: clinical condition - History of Present Illness Initial Comments: the patient is an 86-year-old female presenting to the emergency room secondary to having a fall at the long-term care facility. The patient does have some significant dementia. She has some chronic pain in her hips as well as her low back. The patient is supposed to be functional in a wheelchair however she decided to get up and walk today and she is too weak to do that. The patient fell and of course reported some pain in her hips and her low back. There is some concern that the patient is having new sensation loss in her lower extremities however looking back over previous records she has had long- term sensation loss to her lower extremities. The patient is not a good historian and actually has no idea how she fell today. She is pleasant and cooperative. No other obvious areas of injury.the patient is unable to differentiate her chronic pain from her current pain due to her dementia. Timing/Duration: momentarily Severity: moderate Improving Factors: immobilization Worsening Factors: movement Associated Symptoms: denies symptoms Allergies/Adverse Reactions: Allergies ARTEMIO Inhibitors Allergy (Verified 06/17/17 19:43) Vomitting Codeine Allergy (Verified 06/17/17 19:43) Penicillins Allergy (Verified 06/17/17 19:43) Vomitting Home Medications: Ambulatory Orders Gabapentin [Neurontin] 600 mg PO BEDTIME 08/28/12 Atorvastatin Calcium [Lipitor] 10 mg PO BEDTIME 12/13/15 Acetaminophen [Tylenol] 500 mg PO Q6HR PRN 12/23/15 Docusate Sodium [Colace] 1 each PO DAILY PRN 12/23/15 Cetirizine HCl [Zyrtec] 10 mg PO DAILY PRN 04/06/16 Meloxicam 7.5 mg PO DAILY 04/06/16 Tramadol HCl 50 mg PO TID PRN #14 tab 04/06/16 Metoprolol Succinate [Toprol Xl] 25 mg PO BEDTIME 04/25/16 Nitroglycerin [Nitrostat] 1 ea SL Q5M PRN MDD 3 04/25/16 Potassium Citrate (Alkalinizer [Potassium Citrate ER] 1,080 mg PO NIRAJ-OTH-DAY hydrOXYzine HCl [Atarax] 25 mg PO Q4HR PRN 04/25/16 Aspirin 325 mg PO QD 04/29/17 Diltiazem HCl 30 mg PO BID 04/29/17 Diphenoxylate/Atropine [Lomotil Tab] 1 - 2 tablet PO PRN PRN MDD 2.5-0.025 04/29 Folic Vxsq-Bjytoomudi-Dmjqbbll [Folbic 2.5-25-2 mg] 1 tab PO DAILY 04/29/17 Isosorbide Mononitrate [Isosorbide Mononitrate ER] 30 mg PO DAILY 04/29/17 Nystatin Powder 15 gm TOP BID 04/29/17 Promethazine Tab [Phenergan Tablet] 25 mg PO Q6H PRN 04/29/17 Furosemide Tab [Lasix Tab] 40 mg PO NIRAJ-OTH-DAY 04/30/17 Review of Systems - Review of Systems Review of Systems: 06/17/17 21:41 review of systems is only somemoderately reliable given patient's dementia Constitutional: States: no symptoms reported EENTM: States: no symptoms reported Respiratory: States: no symptoms reported Cardiology: States: no symptoms reported Gastrointestinal/Abdominal: States: no symptoms reported Genitourinary: States: no symptoms reported Musculoskeletal: States: see HPI, back pain, joint pain Skin: States: no symptoms reported Neurological: States: see HPI Endocrine: States: no symptoms reported All other Systems: No Change from Baseline Past Medical History (General) - Patient Medical History Hx Seizures: No Hx Stroke: No Hx Dementia: No Hx Asthma: No Hx of COPD: No Hx Cardiac Disorders: No Hx Congestive Heart Failure: No Hx Pacemaker: No Hx Hypertension: Yes Hx Thyroid Disease: No Hx Diabetes: No Hx Gastroesophageal Reflux: No Hx Renal Disease: No Hx Cancer: No Hx of HIV: No Hx Hepatitis C: No Hx MRSA: Yes - ..... MRSA Source:: Wound Surgical History: noncontributory - Vaccination History Hx Tetanus, Diphtheria Vaccination: No Hx Influenza Vaccination: Yes Hx Pneumococcal Vaccination: Yes - Social History Hx Tobacco Use: No Hx Chewing Tobacco Use: No Hx Alcohol Use: No Hx Substance Use: No Hx Substance Use Treatment: No Hx Depression: No Hx Physical Abuse: No Hx Emotional Abuse: No Hx Suspected Abuse: No - Activities of Daily Living Custodial/Assisted Living (if applicable):: [facility] - Female History Patient : No Family Medical History - Family History Mother Family History: No Known Living Status: Hx Family Asthma: No Hx Family Congestive Heart Failure: No Hx Family Hypertension: No Hx Family Stroke: No Hx Cardiac Disease: Yes Hx Family Diabetes: No Hx Family Cancer: No Physical Exam - Physical Exam General Appearance: Alert, Comfortable, No apparent distress Eye Exam: bilateral normal Ears, Nose, Throat: hearing grossly normal, normal ENT inspection, normal pharynx Neck: full range of motion, supple Respiratory: lungs clear, normal breath sounds, no respiratory distress, no accessory muscle use Cardiovascular/Chest: normal peripheral pulses, no edema, other - regular rate Peripheral Pulses: radial,right: 2+, radial,left: 2+, dorsalis pedis,right: 1+, dorsalis pedis,left: 1+ Gastrointestinal/Abdominal: non tender, soft Rectal Exam: deferred Back Exam: other - the patient has diffuse low back pain to palpation. She does have a mild abrasion whhere she fell. No laceration. Extremity: no pedal edema, normal capillary refill, other - the patient has tenderness to palpation over the distal left femur as well as the left hip. This is apparently not new. Passive range of motion does appear to be preserved. Active range of motion does actually appear to be preserved though some discomfort. Again this is chronic. 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 DTR: 1+: Patellar, left, Patellar, right Skin Exam: normal color Comments: Vital Signs - 24 hr 06/17/17 19:20 Temperature 98.9 F Pulse Rate [ 82 monitor] Respiratory 16 Rate Blood Pressure 136/76 [Left Arm] O2 Sat by Pulse 89 L Oximetry Progress - Progress Progress: 06/17/17 21:44 the patient is an 86-year-old female presenting to the emergency room after a fall at the long-term care facility. The patient's reporting pain in her sites of chronic pain. Imaging of these areas fails to show any new significant changes. The patient needs to use her wheelchair rather than try to get up and walk. Deras catheter will be left in for patient's comfort purposes for now. It can be discontinued at the discretion of course of the long-term care facility. The patient will be sent back to the long-term care facility for continuation of care. ER warnings were given for any significant worsening. She will likely be sore for a week or 2. imaging was done of the left femur, left hip, pelvis, and lumbar spine. - Results/Orders Results/Orders: Laboratory Results - last 24 hr 06/17/17 06/17/17 06/17/17 19:50 19:50 19:50 WBC 5.3 RBC 4.00 L Hgb 12.1 Hct 36.5 MCV 91.3 MCH 30.2 MCHC 33.0 RDW 14.8 H Plt Count 211 MPV 6.3 L Absolute Neuts (auto) 3.20 Absolute Lymphs (auto) 1.60 Absolute Monos (auto) 0.30 Absolute Eos (auto) 0.10 Absolute Basos (auto) 0.00 Neutrophils % 60.7 Lymphocytes % 30.1 Monocytes % 5.7 Eosinophils % 2.8 Basophils % 0.7 PT 10.9 INR 0.960 PTT (SP) 28.2 Sodium 143 Potassium 3.3 L Chloride 104 Carbon Dioxide 32 H Anion Gap 10.3 L BUN 25 H Creatinine 1.13 BUN/Creatinine Ratio 22.1 H Random Glucose 115 H Serum Osmolality 290.3 Calcium 9.4 Total Bilirubin 0.3 AST 27 ALT 17 Alkaline Phosphatase 72 Serum Total Protein 6.3 L Albumin 3.6 Globulin 2.7 Albumin/Globulin Ratio 1.3 x-rays of the left hip, pelvis and left femur show no evidence of new fracture or dislocation. She does have chronic changes. CT scan of the lumbar spine shows no evidence of any new fracture or subluxation. Departure - Departure Clinical Impression: Fall at halfway Qualifiers: Encounter type: initial encounter Qualified Code(s): W19.XXXA - Unspecified fall, initial encounter; Y92.129 - Unspecified place in halfway as the place of occurrence of the external cause Dementia Qualifiers: Dementia type: unspecified type Chronic pain Qualifiers: Chronic pain type: due to trauma Qualified Code(s): G89.21 - Chronic pain due to trauma Disposition: Discharge to Home or Self Care Condition: Fair Departure Forms: ED Discharge - Pt. Copy, Patient Portal Self Enrollment Diet: regular diet Activity: increase activity as tolerated - heelchair use for ambulation only Referrals: Jose Alberto Morelos MD [Primary Care Provider] - 1-5 Days Home Medications: Ambulatory Orders Gabapentin [Neurontin] 600 mg PO BEDTIME 08/28/12 Atorvastatin Calcium [Lipitor] 10 mg PO BEDTIME 12/13/15 Acetaminophen [Tylenol] 500 mg PO Q6HR PRN 12/23/15 Docusate Sodium [Colace] 1 each PO DAILY PRN 12/23/15 Cetirizine HCl [Zyrtec] 10 mg PO DAILY PRN 04/06/16 Meloxicam 7.5 mg PO DAILY 04/06/16 Tramadol HCl 50 mg PO TID PRN #14 tab 04/06/16 Metoprolol Succinate [Toprol Xl] 25 mg PO BEDTIME 04/25/16 Nitroglycerin [Nitrostat] 1 ea SL Q5M PRN MDD 3 04/25/16 Potassium Citrate (Alkalinizer [Potassium Citrate ER] 1,080 mg PO NIRAJ-OTH-DAY hydrOXYzine HCl [Atarax] 25 mg PO Q4HR PRN 04/25/16 Aspirin 325 mg PO QD 04/29/17 Diltiazem HCl 30 mg PO BID 04/29/17 Diphenoxylate/Atropine [Lomotil Tab] 1 - 2 tablet PO PRN PRN MDD 2.5-0.025 04/29 Folic Zcrk-Jkkuxvcwin-Whrqeadu [Folbic 2.5-25-2 mg] 1 tab PO DAILY 04/29/17 Isosorbide Mononitrate [Isosorbide Mononitrate ER] 30 mg PO DAILY 04/29/17 Nystatin Powder 15 gm TOP BID 04/29/17 Promethazine Tab [Phenergan Tablet] 25 mg PO Q6H PRN 04/29/17 Furosemide Tab [Lasix Tab] 40 mg PO NIRAJ-OTH-DAY 04/30/17 Additional Instructions: the patient is an 86-year-old female presenting to the emergency room after a fall at the long-term care facility. The patient's reporting pain in her sites of chronic pain. Imaging of these areas fails to show any new significant changes. The patient needs to use her wheelchair rather than try to get up and walk. Deras catheter will be left in for patient's comfort purposes for now. It can be discontinued at the discretion of course of the long-term care facility. The patient will be sent back to the long-term care facility for continuation of care. ER warnings were given for any significant worsening. She will likely be sore for a week or 2. imaging was done of the left femur, left hip, pelvis, and lumbar spine.
[2017-06-17] MEDS ORDERED: traMADol HCL 50 MG TAB PO ONE (21:48)
[2017-06-17 22:34] VITALS: BP 160/72; O2SAT 94
== END 2017-06-17 22:35 ==
LOC: ER 19:20
DX: G89.11 Acute pain due to trauma (principal); M79.605 Pain in left leg; M54.6 Pain in thoracic spine; G89.29 Other chronic pain; M54.5 Low back pain; M25.552 Pain in left hip; M25.551 Pain in right hip; F03.90 Unspecified dementia, unspecified severity, without behavioral disturbance, psychotic disturbance, mood disturbance, and anxiety; I10 Essential (primary) hypertension; W19.XXXA Unspecified fall, initial encounter; Y92.129 Unspecified place in nursing home as the place of occurrence of the external cause

== ENCOUNTER 2017-06-27 00:03 | Emergency (ER) | payer MEDICARE ==
[2017-06-27 00:20] VITALS: BP 148/77; TEMP 98.5; O2SAT 93
--- NOTE | 2017-06-27 01:01 | ED.PDOC ---
History of Present Illness - General Chief Complaint: Lower Extremity Injury Stated Complaint: pelvic fracture S/P 1 week ago Time Seen by Provider: 06/27/17 00:07 Source: patient, EMS notes reviewed Exam Limitations: no limitations - History of Present Illness Initial Comments: Naima Small 86 y/o female stated she fell on her buttocks last week and [facility] sent [facility] since patient still having pains on left hip .She had history of bilateral inferior pubic ramus and left superior pubic ramus.She came here last and x ray of her pelvis and ct of lumbar spine showed no new fractures noted.[facility]ray at [facility] done today which showed subtle cortical dehiscence near the left greater trochanter Has history of dementia and could not recal if she fell or been hospitlaized for this. Pain - Lower Extremity: moderate: Left Thigh/Hip Method of Injury: fell - off wheel cahir trying to get up last week, other - old injury a week ago see hpi Improving Factors: rest Worsening Factors: movement Allergies/Adverse Reactions: Allergies ARTEMIO Inhibitors Allergy (Verified 06/27/17 00:20) Vomitting Codeine Allergy (Verified 06/27/17 00:20) Penicillins Allergy (Verified 06/27/17 00:20) Vomitting Home Medications: Ambulatory Orders Gabapentin [Neurontin] 600 mg PO BEDTIME 08/28/12 Atorvastatin Calcium [Lipitor] 10 mg PO BEDTIME 12/13/15 Acetaminophen [Tylenol] 500 mg PO Q6HR PRN 12/23/15 Docusate Sodium [Colace] 1 each PO DAILY PRN 12/23/15 Cetirizine HCl [Zyrtec] 10 mg PO DAILY PRN 04/06/16 Meloxicam 7.5 mg PO DAILY 04/06/16 Tramadol HCl 50 mg PO TID PRN #14 tab 04/06/16 Metoprolol Succinate [Toprol Xl] 25 mg PO BEDTIME 04/25/16 Nitroglycerin [Nitrostat] 1 ea SL Q5M PRN MDD 3 04/25/16 Potassium Citrate (Alkalinizer [Potassium Citrate ER] 1,080 mg PO NIRAJ-OTH-DAY hydrOXYzine HCl [Atarax] 25 mg PO Q4HR PRN 04/25/16 Aspirin 325 mg PO QD 04/29/17 Diltiazem HCl 30 mg PO BID 04/29/17 Diphenoxylate/Atropine [Lomotil Tab] 1 - 2 tablet PO PRN PRN MDD 2.5-0.025 04/29 Folic Kyku-Jomdhvyvdz-Zgletpgr [Folbic 2.5-25-2 mg] 1 tab PO DAILY 04/29/17 Isosorbide Mononitrate [Isosorbide Mononitrate ER] 30 mg PO DAILY 04/29/17 Nystatin Powder 15 gm TOP BID 04/29/17 Promethazine Tab [Phenergan Tablet] 25 mg PO Q6H PRN 04/29/17 Furosemide Tab [Lasix Tab] 40 mg PO NIRAJ-OTH-DAY 04/30/17 Review of Systems - Review of Systems Constitutional: States: no symptoms reported EENTM: States: no symptoms reported Respiratory: States: no symptoms reported Gastrointestinal/Abdominal: States: no symptoms reported Genitourinary: States: no symptoms reported Musculoskeletal: States: see HPI, joint pain - left hip area Skin: States: no symptoms reported Neurological: States: see HPI, other - dementia Past Medical History (General) - Patient Medical History Hx Seizures: No Hx Stroke: No Hx Dementia: No Hx Asthma: No Hx of COPD: No Hx Cardiac Disorders: No Hx Congestive Heart Failure: No Hx Pacemaker: No Hx Hypertension: Yes Hx Thyroid Disease: No Hx Diabetes: No Hx Gastroesophageal Reflux: No Hx Renal Disease: No Hx Cancer: No Hx of HIV: No Hx Hepatitis C: No Hx MRSA: Yes - ..... Hx Other PMH: Yes MRSA Source:: Wound Surgical History: noncontributory - Vaccination History Hx Tetanus, Diphtheria Vaccination: No Hx Influenza Vaccination: Yes Hx Pneumococcal Vaccination: Yes - Social History Hx Tobacco Use: No Hx Chewing Tobacco Use: No Hx Alcohol Use: No Hx Substance Use: No Hx Substance Use Treatment: No Hx Depression: No Hx Physical Abuse: No Hx Emotional Abuse: No Hx Suspected Abuse: No - Activities of Daily Living Long-Term/Assisted Living (if applicable):: [facility] Grooming Ability: Independent Eating (Feeding) Ability: Independent Toileting Ability: Moderate Assistance Additional ED Patient Information: wheelchair bound - Female History Patient : No Family Medical History - Family History Mother Family History: No Known Living Status: Hx Family Asthma: No Hx Family Congestive Heart Failure: No Hx Family Hypertension: No Hx Family Stroke: No Hx Cardiac Disease: Yes Hx Family Diabetes: No Hx Family Cancer: No Physical Exam - Physical Exam General Appearance: Alert, Comfortable, No apparent distress Eyes, Ears, Nose, Throat: normal ENT inspection Neck: non-tender, full range of motion, supple Cardiovascular/Respiratory: regular rate, rhythm, no M/R/G, normal peripheral pulses Gastrointestinal/Abdominal: non-tender, no organomegaly Back: no CVA tenderness, no vertebral tenderness Thigh/Hip: bone tenderness - left hip,no deformities noted, ecchymosis - left side Leg: normal inspection, no evidence of injury Knee: normal inspection, no evidence of injury Ankle: normal inspection, no evidence of injury Foot: normal inspection, no evidence of injury Neuro/Tendon: normal motor functions, normal tendon functions, responds to pain , sensory deficit - decrease sensation both feet Mental Status: alert, oriented x 3 Skin: normal color, warm/dry Progress - Progress Progress: 06/27/17 02:29 Last Vital Signs Temp 98.5 F 06/27/17 00:11 Pulse 67 06/27/17 00:11 Resp 16 06/27/17 00:11 BP 148/77 06/27/17 00:11 Pulse Ox 93 L 06/27/17 00:11 06/27/17 02:33 Nurse noted that she was able to get up and down exam table without assistance - EKG/XRAY/CT CT: continuation -possible non displaced sacral fracture CT Ordered: Yes - left hip no fracture left hip;? lucency sacral area possible non displaced Departure - Departure Clinical Impression: Pelvic pain, Left hip pain Fracture of left pelvis Qualifiers: Encounter type: subsequent encounter Pelvic bone location: ilium Fracture type : closed Fracture morphology: unspecified fracture morphology Fracture alignment : nondisplaced Fracture healing: with delayed healing Qualified Code(s): S32.302G - Unspecified fracture of left ilium, subsequent encounter for fracture with delayed healing Time of Disposition: 02:25 Disposition: Discharge to SNF Condition: Fair Departure Forms: ED Discharge - Pt. Copy, Patient Portal Self Enrollment Instructions: Pelvic Fracture, DI for Pelvic Fracture, Sacral Stress Fracture Activity: other - need to use wheel chair until better may ambulate but with assist Referrals: Jose Alberto Morelos MD [Primary Care Provider] - 1-2 Weeks Home Medications: Ambulatory Orders Gabapentin [Neurontin] 600 mg PO BEDTIME 08/28/12 Atorvastatin Calcium [Lipitor] 10 mg PO BEDTIME 12/13/15 Acetaminophen [Tylenol] 500 mg PO Q6HR PRN 12/23/15 Docusate Sodium [Colace] 1 each PO DAILY PRN 12/23/15 Cetirizine HCl [Zyrtec] 10 mg PO DAILY PRN 04/06/16 Meloxicam 7.5 mg PO DAILY 04/06/16 Tramadol HCl 50 mg PO TID PRN #14 tab 04/06/16 Metoprolol Succinate [Toprol Xl] 25 mg PO BEDTIME 04/25/16 Nitroglycerin [Nitrostat] 1 ea SL Q5M PRN MDD 3 04/25/16 Potassium Citrate (Alkalinizer [Potassium Citrate ER] 1,080 mg PO NIRAJ-OTH-DAY hydrOXYzine HCl [Atarax] 25 mg PO Q4HR PRN 04/25/16 Aspirin 325 mg PO QD 04/29/17 Diltiazem HCl 30 mg PO BID 04/29/17 Diphenoxylate/Atropine [Lomotil Tab] 1 - 2 tablet PO PRN PRN MDD 2.5-0.025 04/29 Folic Hheg-Uvtqwwkrbh-Wwicvbay [Folbic 2.5-25-2 mg] 1 tab PO DAILY 04/29/17 Isosorbide Mononitrate [Isosorbide Mononitrate ER] 30 mg PO DAILY 04/29/17 Nystatin Powder 15 gm TOP BID 04/29/17 Promethazine Tab [Phenergan Tablet] 25 mg PO Q6H PRN 04/29/17 Furosemide Tab [Lasix Tab] 40 mg PO NIRAJ-OTH-DAY 04/30/17 Additional Instructions: WARM MOIST PACK TO LEFT HIP 20 minutes 3x a day during WAKING HOURS ONLY for 3 weeks or until better.Continue with all pain medications and current medication
--- NOTE | 2017-06-27 02:09 | CT ---
EXAM: CT left lower extremity without contrast. INDICATION: Pain. TECHNIQUE: Contiguous axial CT images of the left hip. Intravenous contrast: Absent. Oral contrast: Absent. DLP 755 mGy-cm. This exam was performed according to our departmental dose-optimization program, which includes automated exposure control, adjustment of the mA and/or kV according to patient size and/or use of iterative reconstruction technique. COMPARISON: None. FINDINGS: Viscera: Partially imaged. Bowel: Unremarkable. Urinary bladder: Unremarkable. Bones: Bones are demineralized. There are lucencies along the left side of the sacrum, concerning for nondisplaced fractures. There are changes of a left hip arthroplasty with no periprosthetic lucencies. There are old healed fractures involving the bilateral inferior pubic rami and right superior pubic ramus. Soft tissues: Unremarkable. IMPRESSION: Lucencies along the left side of the sacrum, concerning for a nondisplaced fracture. No displaced fracture is identified. Changes of a left hip arthroplasty with no periprosthetic lucencies. Electronically signed by: Shashi Hernandez MD 06/27/2017 2:08 AM [facility] Workstation: [id number]
== END 2017-06-27 03:23 ==
LOC: ER 00:03
DX: S32.302D Unspecified fracture of left ilium, subsequent encounter for fracture with routine healing (principal); M25.552 Pain in left hip; I10 Essential (primary) hypertension; F03.90 Unspecified dementia, unspecified severity, without behavioral disturbance, psychotic disturbance, mood disturbance, and anxiety; W05.0XXD Fall from non-moving wheelchair, subsequent encounter

== ENCOUNTER → 2017-08-18 | Outpatient (CLI) | payer MEDICARE | END | disposition home or self-care (01) | LOC: YCHH 13:28 | PROVIDERS: ATTEND Family Medicine | DX: N39.0 Urinary tract infection, site not specified (principal) ==

== ENCOUNTER 2017-08-27 14:11 | Observation (INO) | payer MEDICARE ==
--- NOTE | 2017-08-27 15:04 | ED.PDOC ---
History of Present Illness - General Chief Complaint: Trauma Stated Complaint: fall Time Seen by Provider: 08/27/17 14:39 Source: patient, EMS Exam Limitations: no limitations - History of Present Illness Initial Comments: Patient states she tried to jump over her dog that was in her legs and she fell. She hit her head with no LOC but nausea directly after and some tingling of the RUQ after initial pain. Patient denies vision change but some neck pain. Her R arm suffered a large skin laceration and does hurt as does her R hip and L low back. She was able to weight bear with assistance directly after. She was in [facility] prior Improving Factors: nothing Worsening Factors: nothing Associated Symptoms: denies symptoms Allergies/Adverse Reactions: Allergies ARTEMIO Inhibitors Allergy (Verified 08/27/17 15:10) Vomitting Codeine Allergy (Verified 08/27/17 15:10) Penicillins Allergy (Verified 08/27/17 15:10) Vomitting Home Medications: Ambulatory Orders Gabapentin [Neurontin] 600 mg PO BEDTIME 08/28/12 Atorvastatin Calcium [Lipitor] 10 mg PO BEDTIME 12/13/15 Acetaminophen [Tylenol] 500 mg PO Q6HR PRN 12/23/15 Docusate Sodium [Colace] 1 each PO DAILY PRN 12/23/15 Cetirizine HCl [Zyrtec] 10 mg PO DAILY PRN 04/06/16 Meloxicam 7.5 mg PO DAILY 04/06/16 Tramadol HCl 50 mg PO TID PRN #14 tab 04/06/16 Metoprolol Succinate [Toprol Xl] 25 mg PO BEDTIME 04/25/16 Nitroglycerin [Nitrostat] 1 ea SL Q5M PRN MDD 3 04/25/16 Potassium Citrate (Alkalinizer [Potassium Citrate ER] 1,080 mg PO NIRAJ-OTH-DAY hydrOXYzine HCl [Atarax] 25 mg PO Q4HR PRN 04/25/16 Aspirin 325 mg PO QD 04/29/17 Diltiazem HCl 30 mg PO BID 04/29/17 Diphenoxylate/Atropine [Lomotil Tab] 1 - 2 tablet PO PRN PRN MDD 2.5-0.025 04/29 Folic Gjdq-Fnywedsntr-Zzjfzkhk [Folbic 2.5-25-2 mg] 1 tab PO DAILY 04/29/17 Isosorbide Mononitrate [Isosorbide Mononitrate ER] 30 mg PO DAILY 04/29/17 Nystatin Powder 15 gm TOP BID 04/29/17 Promethazine Tab [Phenergan Tablet] 25 mg PO Q6H PRN 04/29/17 Furosemide Tab [Lasix Tab] 40 mg PO NIRAJ-OTH-DAY 04/30/17 Review of Systems - Review of Systems Constitutional: States: no symptoms reported. Denies: malaise EENTM: States: no symptoms reported Respiratory: States: no symptoms reported. Denies: orthopnea, short of breath Cardiology: States: no symptoms reported. Denies: chest pain, edema, palpitations Gastrointestinal/Abdominal: States: nausea. Denies: abdominal pain, constipation, diarrhea, vomiting Genitourinary: States: no symptoms reported Musculoskeletal: States: see HPI Skin: States: see HPI Neurological: States: see HPI Past Medical History (General) - Patient Medical History Hx Seizures: No Hx Stroke: No Hx Dementia: No Hx Asthma: No Hx of COPD: No Hx Cardiac Disorders: No Hx Congestive Heart Failure: No Hx Pacemaker: No Hx Hypertension: Yes Hx Thyroid Disease: No Hx Diabetes: No Hx Gastroesophageal Reflux: No Hx Renal Disease: No Hx Cancer: No Hx of HIV: No Hx Hepatitis C: No Hx MRSA: Yes - ..... MRSA Source:: Wound - Vaccination History Hx Tetanus, Diphtheria Vaccination: No Hx Influenza Vaccination: Yes Hx Pneumococcal Vaccination: Yes - Social History Hx Tobacco Use: No Hx Chewing Tobacco Use: No Hx Alcohol Use: No Hx Substance Use: No Hx Substance Use Treatment: No Hx Depression: No Hx Physical Abuse: No Hx Emotional Abuse: No Hx Suspected Abuse: No - Female History Patient : No Family Medical History - Family History Mother Family History: No Known Living Status: Hx Family Asthma: No Hx Family Congestive Heart Failure: No Hx Family Hypertension: No Hx Family Stroke: No Hx Cardiac Disease: Yes Hx Family Diabetes: No Hx Family Cancer: No Physical Exam - Physical Exam General Appearance: Other - Alert and oriented with C-collar in place Eye Exam: bilateral normal Ears, Nose, Throat: hearing grossly normal, normal ENT inspection, normal pharynx Neck: other - C-collar in place Respiratory: chest non-tender, lungs clear, normal breath sounds, no respiratory distress, no accessory muscle use Cardiovascular/Chest: normal peripheral pulses, regular rate, rhythm, no edema, no gallop, no JVD, no murmur Peripheral Pulses: radial,right: 2+ Gastrointestinal/Abdominal: normal bowel sounds, non tender, soft, no organomegaly, no pulsatile mass Back Exam: normal inspection, other - healing bruise to the L upper gluteal Extremity: other - pain to the R kandy but no deformity and no bruising. FROM 5/ 5 and normal sensation. Large 6 sm skin tear L forearm but FROM and vice president payment is normal Progress - Progress Progress: 08/27/17 17:44 08/27/17 15:51 Catheter:Intermittent .PRN Laboratory Results WBC 6.4 K/mm3 (4.8-10.8) 08/27/17 16:43 RBC 4.46 M/mm3 (4.20-5.40) 08/27/17 16:43 Hgb 13.4 gm/dL (12.0-16.0) 08/27/17 16:43 Hct 40.6 % (36.0-47.0) 08/27/17 16:43 MCV 91.1 fl (81.0-99.0) 08/27/17 16:43 MCH 30.0 pg (27.0-31.0) 08/27/17 16:43 MCHC 33.0 g/dL (33.0-37.0) 08/27/17 16:43 RDW 14.3 % (11.5-14.5) 08/27/17 16:43 Plt Count 183 K/mm3 (130-400) 08/27/17 16:43 MPV 6.7 fl (7.40-10.4) L 08/27/17 16:43 Absolute Neuts (auto) 4.90 K/uL (1.8-6.8) 08/27/17 16:43 Absolute Lymphs (auto) 0.90 K/uL (1.0-3.4) L 08/27/17 16:43 Absolute Monos (auto) 0.30 K/uL (0.2-0.8) 08/27/17 16:43 Absolute Eos (auto) 0.20 K/uL (0.0-0.4) 08/27/17 16:43 Absolute Basos (auto) 0.10 K/uL (0.0-0.1) 08/27/17 16:43 Neutrophils % 77.3 % (42.0-78.0) 08/27/17 16:43 Lymphocytes % 14.2 % (20.0-50.0) L 08/27/17 16:43 Monocytes % 4.2 % (2.0-9.0) 08/27/17 16:43 Eosinophils % 3.5 % (1.0-5.0) 08/27/17 16:43 Basophils % 0.8 % (0.0-2.0) 08/27/17 16:43 Sodium 138 mmol/L (135-145) 08/27/17 16:43 Potassium 4.4 mmol/L (3.6-5.0) 08/27/17 16:43 Chloride 103 mmol/L (101-111) 08/27/17 16:43 Carbon Dioxide 26 mmol/L (21-31) 08/27/17 16:43 Anion Gap 13.4 (12-18) 08/27/17 16:43 BUN 19 mg/dL (7-18) H 08/27/17 16:43 Creatinine 1.27 mg/dL (0.6-1.3) 08/27/17 16:43 BUN/Creatinine Ratio 15.0 (10-20) 08/27/17 16:43 Random Glucose 87 mg/dL (70-105) 08/27/17 16:43 Serum Osmolality 277.3 mOsm/L (275-295) 08/27/17 16:43 Calcium 9.9 mg/dL (8.4-10.2) 08/27/17 16:43 Total Bilirubin 0.8 mg/dL (0.2-1.0) 08/27/17 16:43 AST 22 IU/L (10-42) 08/27/17 16:43 ALT 15 IU/L (10-60) 08/27/17 16:43 Alkaline Phosphatase 91 IU/L (42-121) 08/27/17 16:43 Serum Total Protein 7.0 gm/dL (6.4-8.2) 08/27/17 16:43 Albumin 3.9 g/dl (3.2-5.5) 08/27/17 16:43 Globulin 3.1 gm/dL (2.3-3.5) 08/27/17 16:43 Albumin/Globulin Ratio 1.3 (1.1-1.9) 08/27/17 16:43 TSH 1.26 uIU/mL (0.34-5.60) 08/27/17 16:43 Urine Color Yellow (Yellow) 08/27/17 16:45 Urine Appearance Clear (Clear) 08/27/17 16:45 Urine pH 5.5 (4.5-7.8) 08/27/17 16:45 Ur Specific [place] 1.015 (1.005-1.030) 08/27/17 16:45 Urine Protein Negative mg/dL 08/27/17 16:45 Urine Glucose (UA) Negative mg/dL (Negative) 08/27/17 16:45 Urine Ketones Negative mg/dL (NEGATIVE) 08/27/17 16:45 Urine Blood Trace-lysed (Negative) H 08/27/17 16:45 Urine Nitrite Negative 08/27/17 16:45 Urine Bilirubin Negative (NEGATIVE) 08/27/17 16:45 Urine Urobilinogen 0.2 mg/dL (0.2-1.0) 08/27/17 16:45 Ur Leukocyte Esterase Trace (Negative) H 08/27/17 16:45 Urine RBC 0-1 /hpf 08/27/17 16:45 Urine WBC 0-1 /hpf 08/27/17 16:45 Ur Epithelial Cells 5-10 /hpf 08/27/17 16:45 Amorphous Sediment 1+ 08/27/17 16:45 Urine Bacteria Rare 08/27/17 16:45 Departure - Departure Clinical Impression: Contusion, Strain of pelvis, Fall Disposition: Admit Patient Departure Forms: ED Discharge - Pt. Copy, Patient Portal Self Enrollment Instructions: DI for Trauma Referrals: Jose Alberto Morelos MD [Primary Care Provider] - 1-2 Weeks Home Medications: Ambulatory Orders Gabapentin [Neurontin] 600 mg PO BEDTIME 08/28/12 Atorvastatin Calcium [Lipitor] 10 mg PO BEDTIME 12/13/15 Acetaminophen [Tylenol] 500 mg PO Q6HR PRN 12/23/15 Docusate Sodium [Colace] 1 each PO DAILY PRN 12/23/15 Cetirizine HCl [Zyrtec] 10 mg PO DAILY PRN 04/06/16 Meloxicam 7.5 mg PO DAILY 04/06/16 Tramadol HCl 50 mg PO TID PRN #14 tab 04/06/16 Metoprolol Succinate [Toprol Xl] 25 mg PO BEDTIME 04/25/16 Nitroglycerin [Nitrostat] 1 ea SL Q5M PRN MDD 3 04/25/16 Potassium Citrate (Alkalinizer [Potassium Citrate ER] 1,080 mg PO NIRAJ-OTH-DAY hydrOXYzine HCl [Atarax] 25 mg PO Q4HR PRN 04/25/16 Aspirin 325 mg PO QD 04/29/17 Diltiazem HCl 30 mg PO BID 04/29/17 Diphenoxylate/Atropine [Lomotil Tab] 1 - 2 tablet PO PRN PRN MDD 2.5-0.025 04/29 Folic Wybi-Lldsltlwks-Ccziayeu [Folbic 2.5-25-2 mg] 1 tab PO DAILY 04/29/17 Isosorbide Mononitrate [Isosorbide Mononitrate ER] 30 mg PO DAILY 04/29/17 Nystatin Powder 15 gm TOP BID 04/29/17 Promethazine Tab [Phenergan Tablet] 25 mg PO Q6H PRN 04/29/17 Furosemide Tab [Lasix Tab] 40 mg PO NIRAJ-OTH-DAY 04/30/17 Comments: Patient has several contustions, skin tears, and brusing from this fall. This is only the latest fall and she is high risk to go home even with her son living with her. He states he is unable to care for her now and is worried as she is so unstable. Will monitor overnight and give pain control and PT evaluation. Will see if we can arrange for PT through [facility] placement Called to [facility] professional development [facility] and he has accepted for 23 hours obs.
--- NOTE | 2017-08-27 15:58 | RAD ---
EXAM DESCRIPTION: Hip Bilateral CLINICAL HISTORY: fall COMPARISON: None FINDINGS: 4 views were submitted. Prosthetic left hip is present. There is no definite fracture or dislocation. No other definite fracture. IMPRESSION: No acute fracture or dislocation. Electronically signed by: Maury Ramires 08/27/2017 3:57 PM CDT
--- NOTE | 2017-08-27 16:01 | CT ---
EXAM DESCRIPTION: Head CLINICAL HISTORY: fall COMPARISON: None Available TECHNIQUE: Contiguous axial CT images of the head were obtained. Coronal and sagittal reconstructions were created from the axial data. This exam was performed according to our departmental dose-optimization program, which includes automated exposure control, adjustment of the mA and/or kV according to patient size and/or use of iterative reconstruction technique. FINDINGS: There is trace fluid in the left mastoid air cells. Poorly defined foci of decreased attenuation do not exert significant mass effect on surrounding structures and are likely sequela of prior insult, most likely on the basis of small vessel disease. There is no definite evidence of acute mass, mass effect, midline shift or hemorrhage. The ventricles and extra-axial CSF spaces are unremarkable. The brain parenchyma appears normal for the patient's age. No acute abnormalities of the bones is seen. IMPRESSION: No acute intracranial abnormality. Electronically signed by: Maury Ramires 08/27/2017 3:59 PM CDT
--- NOTE | 2017-08-27 16:03 | CT ---
EXAM DESCRIPTION: CT CERVICAL SPINE CLINICAL HISTORY: fall COMPARISON: None Available. TECHNIQUE: Contiguous axial images of the cervical spine were obtained followed by reconstruction images.This exam was performed according to our departmental dose-optimization program, which includes automated exposure control, adjustment of the mA and/or kV according to patient size and/or use of iterative reconstruction technique. FINDINGS: There is no acute fracture or subluxation. The prevertebral soft tissues are within normal limits. IMPRESSION: No acute fracture or subluxation. Electronically signed by: Maury Ramires 08/27/2017 4:02 PM CDT
[2017-08-27] MEDS ORDERED: CHLORHEXIDINE GLUCONATE 4 % 15 ML UD TOP ONE (16:26)
--- NOTE | 2017-08-27 16:39 | RAD ---
PROCEDURE: Forearm,Right CLINICAL HISTORY: fall INDICATION: Same as above COMPARISON: None . TECHNIQUE: 2.0 Views of the right forearm were done. FINDINGS: There is no evidence of acute fractures or dislocation involving the right radius or the ulna. There is soft tissue laceration in the proximal right forearm along the radial aspect Limited valuation of the adjacent wrist and elbow joints does not show any acute abnormality. There is no visualization of any radiopaque foreign bodies in the evaluated soft tissues. IMPRESSION: Negative for acute bony trauma involving the right forearm. Place of interpretation: Teleradiology. Electronically signed by: Roscoe Murrell MD 08/27/2017 4:38 PM CDT Workstation: [id number]
--- NOTE | 2017-08-27 16:45 | CT ---
PROCEDURE: Pelvis Clinical History: FAll ? sacral fracture Indication: Same as above Comparison: None Technique: CT of the pelvis was done without intravenous contrast in the axial, sagittal and coronal planes. No oral contrast was given for the study. This exam was performed according to our departmental dose-optimization program, which includes automated exposure control, adjustment of the mA and/or KV according to the patient's size and/or use of iterative reconstruction technique. Findings: Old healed fractures of the bilateral inferior and the right superior pubic rami are seen. There is a healing fracture of the left inferior pubic ramus also seen. There is left hip arthroplasty with intact prosthetic components. There is generalized osteopenia of the bones. There is no visualization of fractures involving the pelvic bones including the sacrum and the coccyx. Degenerative changes are seen in the visualized lower lumbar spine. There are no intramuscular or subcutaneous fluid collections. The urinary bladder is well-distended without any free fluid in the pelvic cavity Impression: Old healed fractures of the bilateral inferior and the right superior pubic rami are seen. There is a healing fracture of the left inferior pubic ramus also seen. There is left hip arthroplasty with intact prosthetic components. There is no acute bony trauma involving the sacrum Location of Interpretation: Teleradiology Electronically signed by: Roscoe Murrell MD 08/27/2017 4:44 PM CDT Workstation: [id number]
[2017-08-27] MEDS ORDERED: traMADol HCL 50 MG TAB PO ONE (16:55)
--- NOTE | 2017-08-27 18:20 | HP ---
SUPERVISING PHYSICIAN: Damien Thomason MD CHIEF COMPLAINT: Same level fall. HISTORY OF PRESENT ILLNESS: Ms. Small is an 86-year-old, female patient who lives with her son. Today, she had tried to jump over a dog and fell. She hit her head. She denied any loss of consciousness, but did have some nausea directly after. She had a large skin laceration to the right arm as well as having some pain to her right hip and left lower back. She presented to the Emergency Room for further evaluation. Radiographic studies completed included a CT of the head, pelvis and cervical spine, all with no acute findings. Her pelvic CT showed evidence of old healed fractures of bilateral inferior and right superior pubic rami for which she had been previously hospitalized in the last year from a previous fall. There was also note of a healing fracture of the left anterior pubic ramus. She also had x- rays of her right forearm and hip with no acute findings on the right forearm and hip x-ray per radiologic interpretation showed no acute fracture or dislocation. Laboratory studies showed her CBC to be within normal limits with a white count of 6,400. Chemistries were unremarkable with normal electrolytes and creatinine 1.27. Liver functions were within normal limits. TSH was normal. Urinalysis showed just a trace of lysed blood with trace leukocyte esterase. Microscopic showed no WBCs, RBCs and 5 to 10 epithelials and rare bacteria. Hemodynamically, the patient was stable. She was without any significant confusion during the initial admission to the Emergency Room. She does have a lengthy history of multiple falls in the past and is currently living at home with her son who has voiced that he is unable to fully assist with her and given that she has had a significant fall with a questionable head injury with unknown loss of consciousness and is high risk for fall, the patient is going to be placed in observation status tonight for close neurological monitoring and physical therapy evaluation. The patient is placed in observation in stable condition. PAST MEDICAL HISTORY: 1. Multiple falls with left hip fracture in November of 2015 and bilateral rami fracture in September of 2014. 2. Hypertension. 3. Ascending aortic aneurysm, last measured 4.8 cm, followed by Dr. Morelos. 4. Neuropathies. 5. Chronic dizziness. 6. Chronic tobacco abuse having stopped in 2014. 7. History of pulmonary embolism noted after bilateral rami fractures in 2016. PAST SURGICAL HISTORY: 1. Orthopedic surgeries to the left forearm as well as left hip. 2. Tonsillectomy. 3. Appendectomy. 4. C-sections times 2. 5. Cholecystectomy. 6. Hysterectomy. 7. Right shoulder surgery. 8. Left total knee arthroplasty. 9. Left hip replacement surgery. 10. Colonoscopy. CURRENT MEDICATIONS: 1. Atarax 25 mg q.4h. as needed. 2. Tramadol 50 mg b.i.d. p.r.n. 3. Phenergan tablets 25 mg q.6h. as needed. 4. Potassium citrate extended release 1080 mg every other day. 5. Nitrostat for chest pains q.6 minutes. 6. Toprol XL 25 mg at bedtime. 7. Isosorbide mononitrate extended release 30 mg daily. 8. Neurontin 600 mg at bedtime. 9. Lasix 40 mg daily. 10. Folic acid supplement 1 tablet daily. 11. Colace 1 daily as needed. 12. Citalopram 30 mg b.i.d. 13. Atorvastatin 10 mg at bedtime. 14. Tylenol 500 mg q.6h. as needed for pain. ALLERGIES: ARTEMIO INHIBITORS, CODEINE, PENICILLINS. FAMILY HISTORY: Unremarkable. SOCIAL HISTORY: The patient lives with her son. She has a significant history of smoking since 19, but stopped in summer. She previously was living alone, but her son has apparently moved in with her to assist with her daily activities and needs. She denies any alcohol or illicit drug use. REVIEW OF SYSTEMS: CONSTITUTIONAL: Denies any general malaise, fevers, chills, or unintentional weight loss. HEENT: Denies nasal congestion, sore throat, earaches, headaches. RESPIRATORY: Denies orthopnea, dyspnea, shortness of breath, cough, wheezing. CARDIOVASCULAR: Denies chest pain, palpitations, edema or syncopal episodes. GASTROINTESTINAL: Denies abdominal pain, constipation, diarrhea, nausea or vomiting. GENITOURINARY: Denies dysuria, hematuria or other urinary symptoms. MUSCULOSKELETAL: As noted in history of present illness. INTEGUMENTARY: As noted in history of present illness. NEUROLOGIC: Denies any ataxia, seizures. She does have a history of dizziness , but no reported neurological deficits. PHYSICAL EXAMINATION: VITAL SIGNS: Temperature 97.9. Pulse 73. Blood pressure 180/82. Respirations 18. Saturation 87% on room and 91% to 94% on nasal cannula at rest on 2 liters. Admission weight 61.9 kg. GENERAL: On admission to the Medical/Surgical Floor, the patient appears to be resting comfortably in no acute distress. She is alert, but possibly confused as to the date. She knows her location, but keeps telling me that her son is in [place] waiting to attend the for her grandparents as they in a car accident. HEENT: Tympanic membranes clear bilaterally. Cranium atraumatic. Oropharynx is pink, moist without any lesions. NECK: Atraumatic, supple, nontender with full range of motion. No jugular venous distention noted. RESPIRATORY: Lungs clear to auscultation bilaterally without any rhonchi, wheezes, or rales. CARDIOVASCULAR: Regular rate and rhythm without any appreciable murmurs, gallops, or rubs. ABDOMEN: Soft, nontender. Positive bowel sounds. EXTREMITIES: There are no obvious deformities or ecchymotic areas. She moves all extremities at akhil. There is a large skin tear to the left forearm. She does have some pain on the right groin with passive and active range of motion, but no obvious deformities. BACK: Atraumatic with an old ecchymotic area to her left upper gluteal area from previous falls. NEUROLOGIC: Cranial nerves II-XII are grossly intact. Facial features are symmetrical. Extraocular movements are within normal limits. There is no nystagmus noted. The patient is alert to location, but confused as to place and time, but she does have recall of the previous fall and notes that she is not sure that she had any loss of consciousness, but is obviously confused as she tells me that her son is in [place] awaiting to attend the in the morning of her grandparents who in a car accident. She is easily reoriented and not showing any anxiety or aggressive mannerisms, but does remain pleasantly confused. LABORATORY: CBC unremarkable with white count 6,400, hemoglobin 13.4, hematocrit 40.6, platelet count 182,000, differential without a left shift. Chemistries show normal electrolytes. BUN 19, creatinine 1.27, sodium 138, calcium 9.9, glucose 87. All other enzymes were within normal limits. TSH normal at 1.26. Urinalysis on clean catch specimen showed trace lysed blood with trace leukocyte esterase. Microscopic revealed 5 to 10 epithelials, no white cells, no RBCs, 1+ amorphus sediment with rare bacteria. MICROBIOLOGY: No specimens submitted. RADIOLOGY: She had multiple CTs and x-rays including CT of the cervical spine, head and pelvis, all without contrast, with no acute findings. Please refer to those reports for full details and description. She also had a x-ray of the right forearm and it showed no acute bony trauma involving the right forearm. She also had a hip x-ray and per radiologic interpretation showed no acute fractures or dislocation. CT of the pelvis did show old healed fractures of the bilateral inferior and right superior pubic rami as well as healing fracture of the left inferior pubic ramus. ASSESSMENT: 1. Status post same level fall without note of loss of consciousness with no acute traumatic injuries as noted on imaging studies with the patient having some mild confusion and a longstanding history of multiple falls in the past. 2. History of previous fractures involving the bilateral inferior and the right superior pubic rami and left pubic ramus from previous falls as noted on current CT imaging studies. 3. Confusion status post same level fall without any acute evidence of intracranial hemorrhage with uncertain loss of consciousness, requiring close neurological monitoring. 4. Skin tear to the right forearm status post same level fall. 5. History of hypertension. 6. History of ascending aortic aneurysm measuring last 4.8 cm noted in April of 2017, being followed by Dr. Morelos. 7. 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 8. Chronic dizziness. 9. History of previous tobacco abuse having stopped in 2016. PLAN: The patient is going to be placed in observation status tonight for close neurological monitoring and q.4h. neuro checks. She will be saline locked as she showed normal electrolytes. There was no obvious evidence of any infectious process. She will be provided pain management with tramadol as needed. She will be on DVT prophylaxis per protocol. Should she show worsening confusion, possibly would warrant a repeat CT in the morning. We will anticipate length of stay to be 1 to 2 days. She will need some extensive discharge planning as her son has voiced that he is not able to take care of her at home anymore and discussion of going to a care facility for ongoing further management of care and possible rehabilitation efforts. We will plan to reevaluate in the morning clinically and until discharge, we will continue to monitor the patient closely and treat appropriately. #[id number] MTDD
[2017-08-27] MEDS ORDERED: SODIUM CHLORIDE 0.9% (FLUSH) 10 ML SYG IV PRN (19:12)
[2017-08-27] MEDS ORDERED: ACETAMINOPHEN 325 MG TAB PO PRN (19:12)
[2017-08-27] MEDS ORDERED: traMADol HCL 50 MG TAB PO PRN (19:19)
--- NOTE | 2017-08-27 19:21 | PCM.CORE ---
Physician DVT/VTE - Nurse DVT Assessment & Total Each Risk Factor Represents 3 Points: Age over 75 years Each Risk Factor Represents 1 Point: Medical PT at Bed Rest DVT Assessment Score: 4 - 3-4 High Risk Treatments: Early Ambulation *, Sequential Compression Device Pharmacological: Enoxaparin 40 mg SQ Daily
[2017-08-27] MEDS ORDERED: IV SET AND CAP CHANGE INJ INJ SCH (19:30)
[2017-08-27] MEDS ORDERED: GABAPENTIN 300 MG CAP PO SCH (21:00)
[2017-08-27] MEDS ORDERED: ATORVASTATIN 10 MG TAB PO SCH (21:00)
[2017-08-27] MEDS ORDERED: METOPROLOL SUCCINATE XL 25 MG TAB PO SCH (21:00)
[2017-08-27] MEDS ORDERED: ENOXAPARIN SODIUM 40 MG/0.4 ML SYG SUBCU SCH (21:00)
[2017-08-27] MEDS: diltiaZEM HCL TAB 30 MG TAB PO SCH (22:31)
[2017-08-27] MEDS: SODIUM CHLORIDE 0.9% (FLUSH) 10 ML SYG IV SCH (22:34)
[2017-08-28] MEDS: diltiaZEM HCL TAB 30 MG TAB PO SCH (08:26)
[2017-08-28] MEDS ORDERED: ISOSORBIDE MONONITRATE (IMDUR) 30 MG TAB PO SCH (09:00)
[2017-08-28] MEDS ORDERED: FUROSEMIDE 40 MG TAB PO SCH (09:00)
[2017-08-28] MEDS: SODIUM CHLORIDE 0.9% (FLUSH) 10 ML SYG IV SCH (09:50)
[2017-08-28 10:15] VITALS: BP 150/90; TEMP 97.6; O2SAT 94
--- NOTE | 2017-08-28 18:44 | DS ---
SUPERVISING PHYSICIAN: Sae Shirley M.D. DISCHARGE DIAGNOSIS: 1. Same level fall with no mention of loss of consciousness with no major acute traumatic injuries as noted on radiographic studies. 2. Skin laceration to the right arm secondary to same level fall. 3. Confusion with a history of dementia. 4. History of previous rami fractures involving the right superior and inferior pubic rami and left pubic ramus from previous falls as noted on current CT imaging studies. 5. History of hypertension. 6. History of ascending aortic aneurysm last measured at 4.8 cm in April of 2017, being followed by Dr. Morelos. 7. 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 8. Chronic dizziness possibly contributing to her multiple falls. 9. History of previous tobacco abuse having stopped in 2016. REASON FOR HOSPITALIZATION: Ms. Small is an 86-year-old, female patient that lives with her son. On date of admission, she had tried to jump over a dog and fell. She hit her head but she denied any loss of consciousness , but did have some nausea directly after the fall. She had a large skin laceration to the right arm as well as having some pain to her right hip and left lower back. She presented to the Emergency Room for further evaluation. Radiographic studies completed in the E. R. included a CT of the head, pelvis and cervical spine, all of which were without any acute findings. Her pelvic CT showed evidence of old healed fractures of bilateral inferior and right superior pubic rami for which she had been previously hospitalized in the past year from previous falls. There was also note of a healing fracture of the left anterior pubic ramus. She had an x-ray of her right forearm and hip with no acute findings per radiologic interpretation. Chemistries were unremarkable with normal electrolytes and creatinine being 1.27. She was without any significant confusion during initial admission to the Emergency Room. She has a lengthy history of multiple falls in the past and was currently living at home with her son who voiced at time of admission that he is unable to fully assist with her at home and given that she has had significant falls with a questionable head injury and unknown loss of consciousness as well as continued high risk for falls, the patient was placed in Observation status overnight for neurological monitoring and physical therapy evaluation. The patient was placed in Observation in stable condition. LABORATORY STUDIES: White count showed to be 6,400, hemoglobin 13.4, hematocrit 40.6, platelet count 183,000. Differential showed to be within normal limits. Chemistries showed normal electrolytes, potassium 4.4, sodium 138, BUN 19, creatinine 1.27. Liver functions are all within normal limits. TSH was normal at 1.26. Urinalysis showed just a trace of blood, trace of leukocyte esterase. Microscopic revealed just rare bacteria but 5 to 10 epithelials. RADIOLOGY: She had multiple x-rays and CT scans to include CT of the cervical spine, head and pelvis all without contrast without any acute findings. She had an x-ray of the right forearm and hip all without any acute evidence of fractures or dislocations per radiology interpretation. HOSPITAL COURSE: Ms. Small was admitted from the Emergency Room for close observation neurologically as noted above for recent fall and possible head injury. She was noted to be confused on admission to place and events, but had full recall of past events from the fall. She was closely observed and had neurological status checks as per protocol without any acute findings. Her son requested that she be placed in a half-way as he was unable to fully care for her anymore at home and given her high risk of falls. She had previously been in [facility] within the last month. It was felt that she was clinically stable and showing no decline neurologically. Her right arm had been cleaned and dressed in the E. R. with Steri-Strips and was showing to be without any complications at time of discharge. It was felt that she was clinically stable enough to be discharged to continue with outpatient management. PLAN: Ms. Small was discharged on 08/28/17 to be admitted to [facility]. She was to have physical therapy evaluation and treat. Diet at discharge was regular diet as tolerated. Activity is as per Physical Therapy. No new medications were started at time of discharge. Condition on discharge was stable and improved. #[id number] [facility]
== END 2017-08-28 13:42 ==
LOC: ER 14:11 → INTOOBSV 18:18 → MS 18:18
PROVIDERS: ADMIT Nurse Practitioner Family; ATTEND Nurse Practitioner Family
DX: S51.811A Laceration without foreign body of right forearm, initial encounter (principal); S09.90XA Unspecified injury of head, initial encounter; S19.9XXA Unspecified injury of neck, initial encounter; S30.0XXA Contusion of lower back and pelvis, initial encounter; S39.013A Strain of muscle, fascia and tendon of pelvis, initial encounter; F03.90 Unspecified dementia, unspecified severity, without behavioral disturbance, psychotic disturbance, mood disturbance, and anxiety; R41.0 Disorientation, unspecified; M25.551 Pain in right hip; M54.5 Low back pain; I10 Essential (primary) hypertension; I71.4 Abdominal aortic aneurysm, without rupture; G62.9 Polyneuropathy, unspecified; R42 Dizziness and giddiness; W01.0XXA Fall on same level from slipping, tripping and stumbling without subsequent striking against object, initial encounter; Z91.81 History of falling; Y93.89 Activity, other specified; Y92.009 Unspecified place in unspecified non-institutional (private) residence as the place of occurrence of the external cause; Z79.1 Long term (current) use of non-steroidal anti-inflammatories (NSAID); Z79.82 Long term (current) use of aspirin; Z79.899 Other long term (current) drug therapy; Z88.0 Allergy status to penicillin; Z88.6 Allergy status to analgesic agent; Z88.8 Allergy status to other drugs, medicaments and biological substances; Z87.891 Personal history of nicotine dependence; Z96.642 Presence of left artificial hip joint
CPT/HCPCS: 36415; 70450; 72125; 72192; 73090; 73521; 80053; 81001; 84443; 85025; 94760 ×2; 97116; 97162; G0378; G8978; G8979; G8980; J1650

== ENCOUNTER 2017-09-12 07:02 | Emergency (ER) | payer MEDICARE, OTHER ==
--- NOTE | 2017-09-12 07:45 | ED.PDOC ---
History of Present Illness - General Chief Complaint: Trauma Stated Complaint: fall/hit head on wall Time Seen by Provider: 09/12/17 07:26 Source: patient Exam Limitations: no limitations - History of Present Illness Initial Comments: Naima Small 86 y/o female resident at [facility] brought by ems to ER with fall getting up from commode trying to get back to her wheel chair .Stated back of head hit the wall felt dizzy and could not recall if she passed out.No nausea/ vomiting ,no blurry vision,speech fluent.Had history of multiple falls in the past and had previous pelvic fracture in the past with multiple ER visits.Denies pain anywhere else Occurred: just prior to arrival Severity: moderate Injuries/Pain Location: head Reason for Fall: slipped Loss of Consciousness: unsure Improving Factors: nothing Worsening Factors: nothing Associated Symptoms (Fall): denies symptoms Allergies/Adverse Reactions: Allergies ARTEMIO Inhibitors Allergy (Verified 09/12/17 07:11) Vomitting Codeine Allergy (Verified 09/12/17 07:11) Penicillins Allergy (Verified 09/12/17 07:11) Vomitting Home Medications: Ambulatory Orders Gabapentin [Neurontin] 600 mg PO BEDTIME 08/28/12 Atorvastatin Calcium [Lipitor] 10 mg PO BEDTIME 12/13/15 Acetaminophen [Tylenol] 500 mg PO Q6HR PRN 12/23/15 Docusate Sodium [Colace] 1 each PO DAILY PRN 12/23/15 Metoprolol Succinate [Toprol Xl] 25 mg PO BEDTIME 04/25/16 Nitroglycerin [Nitrostat] 1 ea SL Q5M PRN MDD 3 04/25/16 Potassium Citrate (Alkalinizer [Potassium Citrate ER] 1,080 mg PO NIRAJ-OTH-DAY hydrOXYzine HCl [Atarax] 25 mg PO Q4HR PRN 04/25/16 Diltiazem HCl 30 mg PO BID 04/29/17 Folic Rumx-Hnneqfgnej-Wkyvsbow [Folbic 2.5-25-2 mg] 1 tab PO DAILY 04/29/17 Isosorbide Mononitrate [Isosorbide Mononitrate ER] 30 mg PO DAILY 04/29/17 Promethazine Tab [Phenergan Tablet] 25 mg PO Q6H PRN 12/16/17 Furosemide Tab [Lasix Tab] 40 mg PO DAILY 04/30/17 Tramadol HCl 50 mg PO BID PRN 08/27/17 Review of Systems - Review of Systems Constitutional: States: no symptoms reported EENTM: States: no symptoms reported Respiratory: States: no symptoms reported Cardiology: States: no symptoms reported Gastrointestinal/Abdominal: States: no symptoms reported Genitourinary: States: no symptoms reported Musculoskeletal: States: no symptoms reported Neurological: States: see HPI, other - neuropathy Past Medical History (General) - Patient Medical History Hx Seizures: No Hx Stroke: No Hx Dementia: No Hx Asthma: No Hx of COPD: Yes Hx Cardiac Disorders: No Hx Congestive Heart Failure: No Hx Pacemaker: No Hx Hypertension: Yes Hx Thyroid Disease: No Hx Diabetes: No Hx Gastroesophageal Reflux: No Hx Renal Disease: No Hx Cancer: No Hx of HIV: No Hx Hepatitis C: No Hx MRSA: No MRSA Source:: Wound Surgical History: appendectomy, cholecystectomy, other - hysterectomy,left hip - Vaccination History Hx Tetanus, Diphtheria Vaccination: No Hx Influenza Vaccination: Yes Hx Pneumococcal Vaccination: Yes - Social History Hx Tobacco Use: Yes Hx Chewing Tobacco Use: No Hx Alcohol Use: No Hx Substance Use: No Hx Substance Use Treatment: No Hx Depression: No Hx Physical Abuse: No Hx Emotional Abuse: No Hx Suspected Abuse: No - Activities of Daily Living Penitentiary/Assisted Living (if applicable):: [facility] Grooming Ability: Independent Eating (Feeding) Ability: Independent Toileting Ability: Minimum Assistance - Female History Patient : No Physical Exam - Physical Exam General Appearance: Alert, Comfortable, No apparent distress Head Injury: no evidence of injury, other - scalp tenderness back of head Eye Exam: bilateral normal ENT Exam: hearing grossly normal, no evidence of ENT injury, no dental injury Peripheral Pulses: radial,right: 2+, radial,left: 2+ Cardiovascular/Respiratory: regular rate, rhythm, no M/R/G, normal peripheral pulses, no JVD, normal breath sounds Gastrointestinal/Abdominal: normal bowel sounds, non tender, soft, no organomegaly Back Exam: no CVA tenderness, no vertebral tenderness Extremity Exam: normal range of motion, non-tender, no pedal edema, pelvis stable Neurologic: no motor/sensory deficits, alert, normal mood/affect, oriented x 3 Skin Exam: normal color, warm/dry - Maikel Coma Score Best Eye Response ([place]): (4) open spontaneously Best Verbal Response (Maikel): (5) oriented Best Motor Response (Maikel): (6) obeys commands Maikel Total: 15 Progress - Progress Progress: 09/12/17 09:04 Vital Signs - 24 hr 09/12/17 09/12/17 09/12/17 07:06 08:05 08:53 Temperature 97.5 F L Pulse Rate [ 60 54 L 52 L Left Radial] Respiratory 18 18 18 Rate Blood Pressure 136/67 137/64 119/71 [Left Arm] O2 Sat by Pulse 98 100 98 Oximetry - EKG/XRAY/CT CT Ordered: Yes - head-no mass effect,midline shift,no skull fracture,fornta encephalomalacia Departure - Departure Clinical Impression: [facility] jail Qualifiers: Encounter type: initial encounter Qualified Code(s): W19.XXXA - Unspecified fall, initial encounter; Y92.129 - Unspecified place in jail as the place of occurrence of the external cause Contusion of head Qualifiers: Encounter type: initial encounter Contusion of head detail: scalp Qualified Code(s): S00.03XA - Contusion of scalp, initial encounter Time of Disposition: 09:06 Disposition: Discharge to SNF Condition: Fair Departure Forms: ED Discharge - Pt. Copy, Patient Portal Self Enrollment Instructions: How to Prevent Falls Referrals: Jose Alberto Morelos MD [Primary Care Provider] - 1-2 Weeks Home Medications: Ambulatory Orders Gabapentin [Neurontin] 600 mg PO BEDTIME 08/28/12 Atorvastatin Calcium [Lipitor] 10 mg PO BEDTIME 12/13/15 Acetaminophen [Tylenol] 500 mg PO Q6HR PRN 12/23/15 Docusate Sodium [Colace] 1 each PO DAILY PRN 12/23/15 Metoprolol Succinate [Toprol Xl] 25 mg PO BEDTIME 04/25/16 Nitroglycerin [Nitrostat] 1 ea SL Q5M PRN MDD 3 04/25/16 Potassium Citrate (Alkalinizer [Potassium Citrate ER] 1,080 mg PO NIRAJ-OTH-DAY hydrOXYzine HCl [Atarax] 25 mg PO Q4HR PRN 04/25/16 Diltiazem HCl 30 mg PO BID 04/29/17 Folic Jpsu-Nxqcuntdgs-Zpzogput [Folbic 2.5-25-2 mg] 1 tab PO DAILY 04/29/17 Isosorbide Mononitrate [Isosorbide Mononitrate ER] 30 mg PO DAILY 04/29/17 Promethazine Tab [Phenergan Tablet] 25 mg PO Q6H PRN 04/29/17 Furosemide Tab [Lasix Tab] 40 mg PO DAILY 04/30/17 Tramadol HCl 50 mg PO BID PRN 08/27/17 Additional Instructions: Follow up with primary Md 13 Sep 2017;Return to ER as Needed ;NEED TO CALL FOR ASSISTANCE GOING and GETTING out of BATHROOM at SNF
--- NOTE | 2017-09-12 08:41 | CT ---
EXAM DESCRIPTION: Head: Computed Tomography. CLINICAL HISTORY: contusion head/fall COMPARISON: CT scan of the head without contrast 08/27/2017. TECHNIQUE: Non-helical axial scans through the skull and brain, at 2.5 mm intervals, non-contrast. Coronal and sagittal 2.0 mm reconstructions. Total Exam DLP: 752.48 mGy-cm. This exam was performed according to our departmental dose-optimization program which includes automated exposure control, adjustment of the mA and/or kV according to patient size and/or use of iterative reconstruction technique; to reduce radiation dose to as low as reasonably achievable (ALARA). FINDINGS: No hemorrhage, no mass-effect, and no midline shift. Diffuse low-density periventricular white matter also involving the subcortical white matter bilaterally. Relatively symmetric bilaterally, except for more involvement of the subcortical white matter of the right frontal lobe. Also bilateral low-density in the basal ganglia and anterior internal capsules. No mass effect. No abnormal radiodense material in the brain parenchyma bilaterally. Vascular calcifications anterior.; physiologic calcifications in the pineal gland and choroid plexus. No effacement or displacement of the ventricles, CSF spaces, or subdural spaces. No extra axial fluid collection or hemorrhage. No gross abnormalities of the bony calvarium. Included paranasal sinuses and mastoid air cells are well - aerated. IMPRESSION: 1. No hemorrhage, no mass effect, no midline shift. 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 More involvement and partial encephalomalacia of the right frontal lobe. 2. CT scans are insensitive for detecting small CVAs in the first 24 hours after onset. Evaluation of the brain stem is also limited. If symptoms persist, consider NON-EMERGENT MRI scan of the brain with diffusion imaging. Electronically signed by: Muary Villeda MD 09/12/2017 8:40 AM CDT
[2017-09-12 10:07] VITALS: BP 141/75; TEMP 97.1; O2SAT 99
== END 2017-09-12 10:00 ==
LOC: ER 07:02
DX: S00.03XA Contusion of scalp, initial encounter (principal); J44.9 Chronic obstructive pulmonary disease, unspecified; I10 Essential (primary) hypertension; Z87.891 Personal history of nicotine dependence; Z79.899 Other long term (current) drug therapy; W18.12XA Fall from or off toilet with subsequent striking against object, initial encounter; Y92.121 Bathroom in nursing home as the place of occurrence of the external cause

== ENCOUNTER 2017-10-19 13:00 | Emergency (ER) | payer MEDICARE ==
--- NOTE | 2017-10-19 04:24 | RAD ---
Right elbow two view on 10/19/2017 CLINICAL INDICATION: Right elbow pain after fall COMPARISON: 09/26/2016 FINDINGS: There is mild osteopenia. There are no fractures. Visualized joints are well aligned. No joint effusion is noted to suggest an occult fracture. IMPRESSION: No acute abnormality. Electronically signed by: Kendall Trevino 10/19/2017 4:23 AM CDT
--- NOTE | 2017-10-19 04:27 | CT ---
CT head without contrast on 10/19/2017 CLINICAL INDICATION: Pain after fell out of bed TECHNIQUE: Multiple axial images are obtained throughout the head without the administration of contrast. This exam was performed according to our departmental dose-optimization program, which includes automated exposure control, adjustment of the mA and/or kV according to patient size and/or use of iterative reconstruction technique. Total DLP is 859.97 mGy*cm. COMPARISON: 09/12/2017 FINDINGS: There is generalized cerebral atrophy. There is low density in the periventricular white matter consistent with chronic small vessel ischemic changes. There is no hydrocephalus. There is no hemorrhage. There are no abnormal extra-axial fluid collections. There is no mass, mass effect or midline shift. There is no CT evidence of acute infarct. No bony abnormality is noted. Right frontal scalp soft tissue swelling and a small right frontal scalp hematoma is noted. IMPRESSION: Atrophy and chronic small vessel ischemic changes with no acute intracranial abnormality. Electronically signed by: Kendall Trevino 10/19/2017 4:26 AM CDT
--- NOTE | 2017-10-19 04:50 | CT ---
EXAM: CT lumbar spine without contrast. INDICATION: Trauma. Lumbar pain. TECHNIQUE: Contiguous axial CT images of the lumbar spine. Intravenous contrast: Absent. Reformats: MPRs created and utilized. DLP 809 mGy-cm. This exam was performed according to our departmental dose-optimization program, which includes automated exposure control, adjustment of the mA and/or kV according to patient size and/or use of iterative reconstruction technique. COMPARISON: 06/17/2017. FINDINGS: Alignment: Mild levoscoliosis of the lumbar spine Fracture: There is an acute compression fracture of L1 with approximately 50% loss of vertebral height with approximately 6 mm of retropulsion into the spinal canal. The remainder of the vertebral heights are maintained. No other fractures are identified. Spondylosis: Multilevel spondylosis, worst at L5-S1 with disc space narrowing, vacuum disc phenomenon and a posterior disc osteophyte complex. Other: Laminectomy changes at L4-L5. There are atherosclerotic ossifications of the abdominal aorta and iliac branches. Diverticulosis is noted. Cholecystectomy clips are present. IMPRESSION: Acute compression fracture of L1 with approximately 50% loss of vertebral height with approximately 6 mm of retropulsion into the spinal canal. Electronically signed by: Shashi Hernandez MD 10/19/2017 4:48 AM CDT Workstation: [id number]
--- NOTE | 2017-10-19 04:52 | RAD ---
Procedure: XR CHEST 1 VIEW Exam Date: 10/19/2017 Ordering Provider: Williams Shirley Clinical Indication: chest pain Comparison: 03/08/2017 Findings: Cardiomediastinal silhouette: Borderline cardiomegaly. Aortic calcification. Focal lung consolidation: No focal lung consolidation. Emphysema. Pleural effusion: None Pneumothorax: None Bones and soft tissues: No displaced rib fractures. Impression: 1. No acute abnormalities in the chest. Electronically signed by: Marin Briones MD 10/19/2017 4:50 AM CDT
--- NOTE | 2017-10-19 06:13 | ED.PDOC ---
History of Present Illness - General Chief Complaint: Trauma Stated Complaint: hematoma to head, fell out of bed Time Seen by Provider: 10/19/17 03:35 Source: patient Exam Limitations: no limitations - History of Present Illness Initial Comments: The patient is an 86-year-old female presenting to the emergency room secondary to having fallen out of bed in the middle of the night. Patient has a right frontal scalp hematoma. She denies loss of consciousness. She is conversive. She also has a small skin tear to the right elbow that has already been Steri-Stripped. She is reporting some back pain primarily to the right side of L1-L2. No palpable deformity but she has sore. She moves her legs well and is neurologically at her recent baseline. no other injuries have been found. Timing/Duration: unsure Severity: moderate Improving Factors: nothing Worsening Factors: nothing Associated Symptoms: denies symptoms Allergies/Adverse Reactions: Allergies ARTEMIO Inhibitors Allergy (Verified 09/12/17 07:11) Vomitting Codeine Allergy (Verified 09/12/17 07:11) Penicillins Allergy (Verified 09/12/17 07:11) Vomitting Home Medications: Ambulatory Orders Gabapentin [Neurontin] 600 mg PO BEDTIME 08/28/12 Atorvastatin Calcium [Lipitor] 10 mg PO BEDTIME 12/13/15 Acetaminophen [Tylenol] 500 mg PO Q6HR PRN 12/23/15 Docusate Sodium [Colace] 1 each PO DAILY PRN 12/23/15 Metoprolol Succinate [Toprol Xl] 25 mg PO BEDTIME 04/25/16 Nitroglycerin [Nitrostat] 1 ea SL Q5M PRN MDD 3 04/25/16 Potassium Citrate (Alkalinizer [Potassium Citrate ER] 1,080 mg PO NIRAJ-OTH-DAY hydrOXYzine HCl [Atarax] 25 mg PO Q4HR PRN 04/25/16 Diltiazem HCl 30 mg PO BID 04/29/17 Folic Zpvy-Jhlgbjbtti-Cbscuebu [Folbic 2.5-25-2 mg] 1 tab PO DAILY 04/29/17 Isosorbide Mononitrate [Isosorbide Mononitrate ER] 30 mg PO DAILY 04/29/17 Promethazine Tab [Phenergan Tablet] 25 mg PO Q6H PRN 04/29/17 Furosemide Tab [Lasix Tab] 40 mg PO DAILY 04/30/17 Tramadol HCl 50 mg PO BID PRN 08/27/17 Review of Systems - Review of Systems Constitutional: States: no symptoms reported EENTM: States: no symptoms reported Respiratory: States: no symptoms reported Cardiology: States: no symptoms reported Gastrointestinal/Abdominal: States: no symptoms reported Genitourinary: States: no symptoms reported Musculoskeletal: States: see HPI Skin: States: see HPI Neurological: States: see HPI Endocrine: States: no symptoms reported All other Systems: No Change from Baseline Past Medical History (General) - Patient Medical History Hx Seizures: No Hx Stroke: No Hx Dementia: No Hx Asthma: No Hx of COPD: Yes Hx Cardiac Disorders: No Hx Congestive Heart Failure: No Hx Pacemaker: No Hx Hypertension: Yes Hx Thyroid Disease: No Hx Diabetes: No Hx Gastroesophageal Reflux: No Hx Renal Disease: No Hx Cancer: No Hx of HIV: No Hx Hepatitis C: No Hx MRSA: No MRSA Source:: Wound Surgical History: appendectomy, tonsillectomy, Hysterectomy - Vaccination History Hx Tetanus, Diphtheria Vaccination: No Hx Influenza Vaccination: Yes Hx Pneumococcal Vaccination: No Immunizations Up to Date: No - Social History Hx Tobacco Use: Yes Hx Chewing Tobacco Use: No Hx Alcohol Use: No Hx Substance Use: No Hx Substance Use Treatment: No Hx Depression: No Feels Threatened In Home Enviroment: No Feels Threatened In a Relationship: No Hx Physical Abuse: No Hx Emotional Abuse: No Hx Suspected Abuse: No - Activities of Daily Living Group Home/Assisted Living (if applicable):: [facility] Agency (if applicable):: None - Female History Patient is a Female of Child Bearing Age (10 -59 yrs old): No Patient : No - Triage Comment ED Triage Comment: Pt states she fell while up walking and c/o pain to her right hand, right elbow, and right bottom. Pt has skin tears to right arm with visible bruising to right forehead, right arm, and right hand. Swelling noted to right forehead. Family Medical History - Family History Mother Family History: No Known Living Status: Hx Family Asthma: No Hx Family Congestive Heart Failure: No Hx Family Hypertension: No Hx Family Stroke: No Hx Cardiac Disease: Yes Hx Family Diabetes: No Hx Family Cancer: No Physical Exam - Physical Exam General Appearance: Alert, No apparent distress Eye Exam: bilateral normal - extraocular movements are intact. Midface appears stable. Ears, Nose, Throat: hearing grossly normal, normal ENT inspection Neck: full range of motion Respiratory: lungs clear, normal breath sounds, no respiratory distress, no accessory muscle use Cardiovascular/Chest: normal peripheral pulses, no edema, other - regular rate Peripheral Pulses: radial,right: 2+, radial,left: 2+, dorsalis pedis,right: 2+, dorsalis pedis,left: 2+ Gastrointestinal/Abdominal: non tender, soft, other - pelvis is stable to pressure. Rectal Exam: deferred Back Exam: CVA tenderness (R), other - the patient has very significant long- standing scoliosis. Extremity: no pedal edema, no calf tenderness, normal capillary refill, other - he patient has a Steri-Stripped skin tearalong the lateral aspect of the right elbow. Range of motion of the elbow is preserved. She does have some chronic limitation of the hips from previous fracture sites. 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 She does have chronic decreased sensation of bilateral lower extremities. Skin Exam: normal color Comments: Vital Signs - 24 hr 10/19/17 10/19/17 10/19/17 03:41 06:00 06:06 Pulse Rate [ 66 75 75 Monitor] Respiratory 16 16 16 Rate Blood Pressure 155/89 133/61 [Left Arm] O2 Sat by Pulse 93 L 98 Oximetry Progress - Progress Progress: 10/19/17 06:22 the patient is an 86-year-old female presenting to the emergency room secondary to falling out of bed in the middle of the night. The patient has sustained an acute L1 compression fracture. She appears to be comfortable at the moment sleeping. for the near future, until there is some healing, the patient should be transferred with a wheelchair to prevent additional falls. Additional damage to the vertebra could cause neurological changes. There does not appear to be any neurological change from baseline with the patient at this time. Her pain may worsen over the coming weeks, in which case additional pain measures may be required in addition to her current ones and kyphoplasty may have to be considered if she has significant further compression in the next couple of weeks. she is certainly a very poor candidate for any more aggressive spinal stabilization. Additionally given her current body habitus and functionality, a TLSO is likely to prove more damaging than helpful in terms of discomfort, functionality in her activities of daily living and skin breakdown. She does need to follow up with her primary care doctor before the end of the week for reevaluation for her functional status. Scalp hematoma should resolve on its own without further intervention. Continue her current tramadol as needed. Keep follow-up with care previously scheduled as well. CT scan of the head, chest x-ray and elbow x-ray are negative for acute pathology. ER warnings were given. plan on repeat x-ray in 10 days to 2 weeks. 10/19/17 06:34 - Results/Orders Results/Orders: chest x-ray shows emphysema. CT scan of the lumbar spine shows an acute compression fracture at L1 with 50% loss of height and [address] scan of the head shows a scalp hematoma but no intracranial hemorrhage. X-ray of the elbow shows no evidence of fracture or dislocation. Departure - Departure Clinical Impression: Scalp hematoma Qualifiers: Encounter type: initial encounter Qualified Code(s): S00.03XA - Contusion of scalp, initial encounter Lumbar compression fracture Qualifiers: Encounter type: initial encounter Lumbar vertebra fracture level: L1 Fracture type: closed Qualified Code(s): S32.010A - Wedge compression fracture of first lumbar vertebra, initial encounter for closed fracture Skin tear of elbow without complication Qualifiers: Encounter type: initial encounter Laterality: right Qualified Code(s): S51.011A - Laceration without foreign body of right elbow, initial encounter Fall at custodial Qualifiers: Encounter type: initial encounter Qualified Code(s): W19.XXXA - Unspecified fall, initial encounter; Y92.129 - Unspecified place in custodial as the place of occurrence of the external cause Disposition: Discharge to SNF Condition: Fair Departure Forms: ED Discharge - Pt. Copy, Patient Portal Self Enrollment Instructions: DI for Vertebral Fracture, Vertebral Compression Fracture Diet: regular diet Activity: other - the patient should plan primarily on bed rest for the next couple of weeks. Transfer should be done with a wheelchair. Referrals: Jose Alberto Morelos MD [Primary Care Provider] - 1-2 Days Home Medications: Ambulatory Orders Gabapentin [Neurontin] 600 mg PO BEDTIME 08/28/12 Atorvastatin Calcium [Lipitor] 10 mg PO BEDTIME 12/13/15 Acetaminophen [Tylenol] 500 mg PO Q6HR PRN 12/23/15 Docusate Sodium [Colace] 1 each PO DAILY PRN 12/23/15 Metoprolol Succinate [Toprol Xl] 25 mg PO BEDTIME 04/25/16 Nitroglycerin [Nitrostat] 1 ea SL Q5M PRN MDD 3 04/25/16 Potassium Citrate (Alkalinizer [Potassium Citrate ER] 1,080 mg PO NIRAJ-OTH-DAY hydrOXYzine HCl [Atarax] 25 mg PO Q4HR PRN 04/25/16 Diltiazem HCl 30 mg PO BID 04/29/17 Folic Fdet-Ilsrgldyym-Jaswzvfy [Folbic 2.5-25-2 mg] 1 tab PO DAILY 04/29/17 Isosorbide Mononitrate [Isosorbide Mononitrate ER] 30 mg PO DAILY 04/29/17 Promethazine Tab [Phenergan Tablet] 25 mg PO Q6H PRN 04/29/17 Furosemide Tab [Lasix Tab] 40 mg PO DAILY 04/30/17 Tramadol HCl 50 mg PO BID PRN 08/27/17 Additional Instructions: the patient is an 86-year-old female presenting to the emergency room secondary to falling out of bed in the middle of the night. The patient has sustained an acute L1 compression fracture. She appears to be comfortable at the moment sleeping. for the near future, until there is some healing, the patient should be transferred with a wheelchair to prevent additional falls. Additional damage to the vertebra could cause neurological changes. There does not appear to be any neurological change from baseline with the patient at this time. Her pain may worsen over the coming weeks, in which case additional pain measures may be required in addition to her current ones and kyphoplasty may have to be considered if she has significant further compression in the next couple of weeks. she is certainly a very poor candidate for any more aggressive spinal stabilization. Additionally given her current body habitus and functionality, a TLSO is likely to prove more damaging than helpful in terms of discomfort, functionality in her activities of daily living and skin breakdown. She does need to follow up with her primary care doctor before the end of the week for reevaluation for her functional status. Scalp hematoma should resolve on its own without further intervention. Continue her current tramadol as needed. Keep follow-up with care previously scheduled as well. CT scan of the head, chest x-ray and elbow x-ray are negative for acute pathology. ER warnings were given. plan on repeat x-ray in 10 days to 2 weeks. the vast majority of her time for the next couple of weeks should be expected to be spent in bed rest to allow for best possible healing of this compression fracture.
[2017-10-19 13:07] VITALS: TEMP 99.3
[2017-10-19] MEDS ORDERED: SODIUM CHLORIDE 0.9% (FLUSH) 10 ML SYG IV PRN (13:44)
--- NOTE | 2017-10-19 13:50 | ED.PDOC ---
History of Present Illness - General Chief Complaint: Neuro Symptoms/Deficits Stated Complaint: confusion Time Seen by Provider: 10/19/17 13:06 Source: patient, RN/MD - History of Present Illness Initial Comments: PT SENT TO THE ED FROM NURSING FACILITY DUE TO FALL FROM BED AND INCREASED CONFUSION TODAY. PT COMPLAINS OF PAIN TO RIGHT CHEST, RIGHT HAND AND RIGHT FACE. ROS AND HPI LIMITED DUE TO PTS MENTAL STATUS. Timing/Duration: 4-6 hours Severity: moderate Allergies/Adverse Reactions: Allergies ARTEMIO Inhibitors Allergy (Verified 09/12/17 07:11) Vomitting Codeine Allergy (Verified 09/12/17 07:11) Penicillins Allergy (Verified 09/12/17 07:11) Vomitting Home Medications: Ambulatory Orders Gabapentin [Neurontin] 600 mg PO BEDTIME 08/28/12 Atorvastatin Calcium [Lipitor] 10 mg PO BEDTIME 12/13/15 Acetaminophen [Tylenol] 500 mg PO Q6HR PRN 12/23/15 Docusate Sodium [Colace] 1 each PO DAILY PRN 12/23/15 Metoprolol Succinate [Toprol Xl] 25 mg PO BEDTIME 04/25/16 Potassium Citrate (Alkalinizer [Potassium Citrate ER] 1,080 mg PO NIRAJ-OTH-DAY hydrOXYzine HCl [Atarax] 25 mg PO Q4HR PRN 04/25/16 Diltiazem HCl 30 mg PO BID 04/29/17 Folic Dgjt-Jxennjtxed-Rigiwctm [Folbic 2.5-25-2 mg] 1 tab PO DAILY 04/29/17 Isosorbide Mononitrate [Isosorbide Mononitrate ER] 30 mg PO DAILY 04/29/17 Promethazine Tab [Phenergan Tablet] 25 mg PO Q6H PRN 04/29/17 Furosemide Tab [Lasix Tab] 40 mg PO DAILY 04/30/17 Tramadol HCl 50 mg PO Q4H PRN 08/27/17 Ibuprofen 400 mg PO Q6H PRN 10/19/17 Magnesium Hydroxide [Milk Of Magnesia] 30 ml PO DAILY PRN 10/19/17 Polyethylene Glycol 3350 [Miralax] 17 gm PO DAILY 10/19/17 Review of Systems - Review of Systems Constitutional: States: see HPI EENTM: States: see HPI Respiratory: States: see HPI Cardiology: States: see HPI, chest pain Gastrointestinal/Abdominal: States: see HPI Genitourinary: States: see HPI Musculoskeletal: States: see HPI Skin: States: see HPI Neurological: States: see HPI Endocrine: States: see HPI Past Medical History (General) - Patient Medical History Hx Seizures: No Hx Stroke: No Hx Dementia: No Hx Asthma: No Hx of COPD: Yes Hx Cardiac Disorders: No Hx Congestive Heart Failure: No Hx Pacemaker: No Hx Hypertension: Yes Hx Thyroid Disease: No Hx Diabetes: No Hx Gastroesophageal Reflux: No Hx Renal Disease: No Hx Cancer: No Hx of HIV: No Hx Hepatitis C: No Hx MRSA: No MRSA Source:: Wound Surgical History: Hysterectomy - Vaccination History Hx Tetanus, Diphtheria Vaccination: No Hx Influenza Vaccination: Yes Hx Pneumococcal Vaccination: No - Social History Hx Tobacco Use: Yes Hx Chewing Tobacco Use: No Hx Alcohol Use: No Hx Substance Use: No Hx Substance Use Treatment: No Hx Depression: No Hx Physical Abuse: No Hx Emotional Abuse: No Hx Suspected Abuse: No - Activities of Daily Living Care Home/Assisted Living (if applicable):: [facility] - Female History Patient : No Family Medical History - Family History Mother Family History: No Known Living Status: Hx Family Asthma: No Hx Family Congestive Heart Failure: No Hx Family Hypertension: No Hx Family Stroke: No Hx Cardiac Disease: Yes Hx Family Diabetes: No Hx Family Cancer: No Physical Exam - Physical Exam General Appearance: Alert, No apparent distress, Well Groomed, Well Hydrated Eye Exam: bilateral normal Ears, Nose, Throat: hearing grossly normal, normal ENT inspection Neck: non-tender, full range of motion, supple, normal inspection Respiratory: normal breath sounds, no respiratory distress, other - RIGHT ANTERIOR CHEST WALL TENDERNESS Cardiovascular/Chest: regular rate, rhythm, no murmur Gastrointestinal/Abdominal: non tender, soft Back Exam: normal inspection, no vertebral tenderness Extremity: other - LARGE SKIN TEAR TO THE RIGHT ELBOW AND DISTAL FOREARM, ECCHYMOSIS, SWELLING, AND TENDERNESS, TO THE RIGHT 5TH DIGIT. Neurologic: alert, normal mood/affect, disoriented x 3 Skin Exam: warm/dry Progress - Progress Progress: 10/19/17 15:56 PT RESTING COMFORTABLY, LABS, DIAGNOSTICS DISCUSSED. - EKG/XRAY/CT XRAY: hand - REMOTE 5TH METACARPAL FX Xray Comments: RIBS- RIGHT [address]: HEAD/CSPINE/FACIAL: NO ACUTE FX OR INJURIES Departure - Departure Clinical Impression: Right rib fracture, Skin tear of forearm without complication, Traumatic ecchymosis of right hand, Traumatic ecchymosis of right orbital rim, Hypokalemia Time of Disposition: 15:59 Disposition: Discharge to SNF Condition: Good Departure Forms: ED Discharge - Pt. Copy, Patient Portal Self Enrollment Instructions: DI for Rib Fracture, DI for Hematoma (Bruise) Diet: resume usual diet Activity: increase activity as tolerated Referrals: Jose Alberto Morelos MD [Primary Care Provider] - 1-2 Weeks Home Medications: Ambulatory Orders Gabapentin [Neurontin] 600 mg PO BEDTIME 08/28/12 Atorvastatin Calcium [Lipitor] 10 mg PO BEDTIME 12/13/15 Acetaminophen [Tylenol] 500 mg PO Q6HR PRN 12/23/15 Docusate Sodium [Colace] 1 each PO DAILY PRN 12/23/15 Metoprolol Succinate [Toprol Xl] 25 mg PO BEDTIME 04/25/16 Potassium Citrate (Alkalinizer [Potassium Citrate ER] 1,080 mg PO NIRAJ-OTH-DAY hydrOXYzine HCl [Atarax] 25 mg PO Q4HR PRN 04/25/16 Diltiazem HCl 30 mg PO BID 04/29/17 Folic Tscl-Cgrgjtmiwd-Yvhjthbl [Folbic 2.5-25-2 mg] 1 tab PO DAILY 04/29/17 Isosorbide Mononitrate [Isosorbide Mononitrate ER] 30 mg PO DAILY 04/29/17 Promethazine Tab [Phenergan Tablet] 25 mg PO Q6H PRN 04/29/17 Furosemide Tab [Lasix Tab] 40 mg PO DAILY 04/30/17 Tramadol HCl 50 mg PO Q4H PRN 08/27/17 Ibuprofen 400 mg PO Q6H PRN 10/19/17 Magnesium Hydroxide [Milk Of Magnesia] 30 ml PO DAILY PRN 10/19/17 Polyethylene Glycol 3350 [Miralax] 17 gm PO DAILY 10/19/17
--- NOTE | 2017-10-19 14:21 | CT ---
EXAM DESCRIPTION: Cervical Spine CLINICAL HISTORY: TRAUMA COMPARISON: None Available. TECHNIQUE: Cervical CT is performed with thin-section axial imaging. MPRs are created and reviewed as well. This exam was performed according to our departmental dose-optimization program, which includes automated exposure control, adjustment of the mA and/or kV according to patient size and/or use of iterative reconstruction technique. FINDINGS: Normal alignment of the cervical spine with anterior degenerative changes at C1-2 articulation is present. Disc and vertebral height and alignment is maintained. The craniocervical junction and C1-2 articulation and the odontoid appear intact. Hypertrophic facet arthropathy predominantly left sided is present at multiple levels. The visualized urinary apical regions are unremarkable. On the left the facet joints are most degenerative and C6-7 and C7-T1 and on the right the changes are most significant at C3-4 and C4-5. No fracture or dislocation is seen. No prevertebral soft tissue swelling or soft tissue mass is seen. No compression deformity is evident. IMPRESSION: Degenerative changes anteriorly at C1-2 and involving the facet joints on the right in the mid to upper cervical spine and on the left in the lower cervical spine. No acute cervical spine injury or fracture noted. Electronically signed by: Sae Cornell MD 10/19/2017 2:20 PM CDT
--- NOTE | 2017-10-19 14:25 | CT ---
EXAM DESCRIPTION: Head CLINICAL HISTORY: TRAUMA COMPARISON: None available TECHNIQUE: Non contrast cranial CT This exam was performed according to our departmental dose-optimization program, which includes automated exposure control, adjustment of the mA and/or kV according to patient size and/or use of iterative reconstruction technique. FINDINGS: Unenhanced CT evaluation of the head is marred by motion artifact between sets of axial images with significant degradation of the MPR reformatted images. 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 No acute intracranial injury or subdural hematoma is seen. No midline shift is noted. The third and fourth ventricles are midline. The petrous ridges and upper paranasal sinuses are normally pneumatized. IMPRESSION: 1. 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 2. No acute intracranial injury or hemorrhage or subdural hematoma or calvarial fracture noted. Electronically signed by: Sae Cornell MD 10/19/2017 2:24 PM CDT
--- NOTE | 2017-10-19 14:31 | RAD ---
EXAM DESCRIPTION: Ribs,Right 3 Views CLINICAL HISTORY: 86 years Female, TRAUMA COMPARISON: None. FINDINGS: Two views of the right ribs demonstrate previous surgery with bone anchors in the right humeral head. Chest wall appears intact without pneumothorax or hemothorax or subcutaneous air. Nondisplaced fracture of the anterolateral right sixth rib is noted. Additional rib fractures are not identified. IMPRESSION: Minimally displaced right sixth rib fracture anterolaterally. Electronically signed by: Sae Cornell MD 10/19/2017 2:30 PM CDT
--- NOTE | 2017-10-19 14:33 | RAD ---
EXAM DESCRIPTION: Hand,Right 2 Views CLINICAL HISTORY: TRAUMA COMPARISON: None. IMPRESSION: 2 views of the right hand show fracture of the head of the fifth metacarpal with volar angulation of the distal fracture fragment. Fracture appears healed and remote. Correlate with physical exam findings. There is moderate to severe narrowing of the interphalangeal joints throughout the fingers with joint line osteophytes most significantly involving the PIP joint of the second and third digits and PIP joint of the fifth digit consistent with moderate to severe osteoarthritic changes. Moderate osteoarthritic changes of the first carpometacarpal joint and first metacarpal phalangeal joint are seen. Osseous structures are diffusely osteopenic. Electronically signed by: Jm Foley MD 10/19/2017 2:32 PM CDT
--- NOTE | 2017-10-19 14:38 | CT ---
EXAM DESCRIPTION: Sinuses CLINICAL HISTORY: 86 years Female, TRAUMA COMPARISON: None. TECHNIQUE: This exam was performed according to our departmental dose-optimization program, which includes automated exposure control, adjustment of the mA and/or kV according to patient size and/or use of iterative reconstruction technique. Noncontrast imaging of the sinuses with MPR reformatted images. FINDINGS: CT of the sinuses to include most of the facial bones demonstrate the nasal bone intact. The frontal, ethmoid, sphenoid, and maxillary sinuses are clear. No evidence of nasal fracture is seen. No soft tissue abnormality of the orbits is noted. The petrous ridges appear normally pneumatized. The zygomatic arches and orbital rims are intact. No evidence of medial or inferior blowout fracture or air-fluid level noted. Mandibular condyles appear intact. IMPRESSION: Examination of the sinuses without evidence of sinus or facial injury. Electronically signed by: Sae Cornell MD 10/19/2017 2:37 PM CDT
[2017-10-19] MEDS ORDERED: POTASSIUM CHLORIDE 20 MEQ TAB PO ONE (15:54)
[2017-10-19] MEDS ORDERED: HYDROcodone 5MG/APAP 325MG 1 EA TAB PO ONE (15:55)
[2017-10-19 17:12] VITALS: BP 141/90; O2SAT 95
== END 2017-10-19 17:12 ==
LOC: ER 13:00
DX: S22.31XA Fracture of one rib, right side, initial encounter for closed fracture (principal); S51.011A Laceration without foreign body of right elbow, initial encounter; S51.811A Laceration without foreign body of right forearm, initial encounter; S60.221A Contusion of right hand, initial encounter; S05.11XA Contusion of eyeball and orbital tissues, right eye, initial encounter; E87.6 Hypokalemia; R07.9 Chest pain, unspecified; R41.0 Disorientation, unspecified; J44.9 Chronic obstructive pulmonary disease, unspecified; I10 Essential (primary) hypertension; Z87.891 Personal history of nicotine dependence; W06.XXXA Fall from bed, initial encounter; Y92.129 Unspecified place in nursing home as the place of occurrence of the external cause

== ENCOUNTER 2017-11-08 01:48 | Emergency (ER) | payer MEDICARE ==
[2017-11-08] MEDS ORDERED: MORPHINE SULFATE INJ 10 MG/ML VIAL ONE (02:00)
[2017-11-08] MEDS ORDERED: MORPHINE SULFATE INJ 10 MG/ML VIAL IV ONE ×2 (02:03→02:48)
--- NOTE | 2017-11-08 02:04 | ED.PDOC ---
History of Present Illness - General Chief Complaint: Trauma Stated Complaint: fall attempting to get to potty chair Time Seen by Provider: 11/08/17 02:01 Source: patient, other - EMS AND NH. Exam Limitations: no limitations - History of Present Illness Initial Comments: PT FELL TONIGHT AMBULATING FROM BED TO POTTY CHAIR. C/O PAIN IN R HIP AND R KNEE. DENIES LOC. DENIES PAIN IN HEAD OR NECK. PT STATES SHE IS ALLERGIC TO CODEINE BUT NOT TO MORPHINE. Severity: moderate Improving Factors: immobilization Worsening Factors: movement Associated Symptoms: denies symptoms Allergies/Adverse Reactions: Allergies ARTEMIO Inhibitors Allergy (Verified 09/12/17 07:11) Vomitting Codeine Allergy (Verified 09/12/17 07:11) Penicillins Allergy (Verified 09/12/17 07:11) Vomitting Home Medications: Ambulatory Orders Gabapentin [Neurontin] 600 mg PO BEDTIME 08/28/12 Atorvastatin Calcium [Lipitor] 10 mg PO BEDTIME 12/13/15 Acetaminophen [Tylenol] 500 mg PO Q6HR PRN 12/23/15 Docusate Sodium [Colace] 1 each PO DAILY PRN 12/23/15 Metoprolol Succinate [Toprol Xl] 25 mg PO BEDTIME 04/25/16 Potassium Citrate (Alkalinizer [Potassium Citrate ER] 1,080 mg PO NIRAJ-OTH-DAY hydrOXYzine HCl [Atarax] 25 mg PO Q4HR PRN 04/25/16 Diltiazem HCl 30 mg PO BID 04/29/17 Folic Echc-Bxqyulswwf-Htxscxoc [Folbic 2.5-25-2 mg] 1 tab PO DAILY 04/29/17 Isosorbide Mononitrate [Isosorbide Mononitrate ER] 30 mg PO DAILY 04/29/17 Promethazine Tab [Phenergan Tablet] 25 mg PO Q6H PRN 04/29/17 Furosemide Tab [Lasix Tab] 40 mg PO DAILY 04/30/17 Tramadol HCl 50 mg PO Q4H PRN 08/27/17 Ibuprofen 400 mg PO Q6H PRN 10/19/17 Magnesium Hydroxide [Milk Of Magnesia] 30 ml PO DAILY PRN 10/19/17 Polyethylene Glycol 3350 [Miralax] 17 gm PO DAILY 10/19/17 FLUoxetine HCL [Prozac] 10 mg PO DAILY 11/08/17 HYDROcodone 10MG/APAP 325MG [Ideal 10/325] 1 tab PO Q4HR PRN 11/08/17 HYDROcodone 10MG/APAP 325MG [Ideal 10/325] 1 tab PO TID 11/08/17 Review of Systems - Review of Systems Constitutional: States: no symptoms reported EENTM: States: no symptoms reported Respiratory: States: no symptoms reported Cardiology: States: no symptoms reported Gastrointestinal/Abdominal: States: no symptoms reported Genitourinary: States: no symptoms reported Musculoskeletal: States: see HPI, joint pain Skin: States: no symptoms reported Neurological: States: no symptoms reported Endocrine: States: no symptoms reported Hematologic/Lymphatic: States: no symptoms reported All other Systems: Reviewed and Negative Past Medical History (General) - Patient Medical History Hx Seizures: No Hx Stroke: No Hx Dementia: No Hx Asthma: No Hx of COPD: Yes Hx Cardiac Disorders: No Hx Congestive Heart Failure: No Hx Pacemaker: No Hx Hypertension: Yes Hx Thyroid Disease: No Hx Diabetes: No Hx Gastroesophageal Reflux: No Hx Renal Disease: No Hx Cancer: No Hx of HIV: No Hx Hepatitis C: No Hx MRSA: No MRSA Source:: Wound - Vaccination History Hx Tetanus, Diphtheria Vaccination: No Hx Influenza Vaccination: Yes Hx Pneumococcal Vaccination: No - Social History Hx Tobacco Use: Yes Hx Chewing Tobacco Use: No Hx Alcohol Use: No Hx Substance Use: No Hx Substance Use Treatment: No Hx Depression: No Hx Physical Abuse: No Hx Emotional Abuse: No Hx Suspected Abuse: No - Female History Patient : No Family Medical History - Family History Mother Family History: No Known Living Status: Hx Family Asthma: No Hx Family Congestive Heart Failure: No Hx Family Hypertension: No Hx Family Stroke: No Hx Cardiac Disease: Yes Hx Family Diabetes: No Hx Family Cancer: No Physical Exam - Physical Exam General Appearance: Alert, Obvious distress Eye Exam: bilateral normal Ears, Nose, Throat: hearing grossly normal, normal ENT inspection Neck: non-tender, full range of motion, supple, normal inspection Respiratory: chest non-tender, lungs clear, normal breath sounds, no respiratory distress, no accessory muscle use Cardiovascular/Chest: normal peripheral pulses, regular rate, rhythm, no murmur Peripheral Pulses: radial,right: 2+, radial,left: 2+, femoral,right: 2+, femoral ,left: 2+, popliteal,right: 1+, popliteal,left: 1+, dorsalis pedis,right: 2+, dorsalis pedis,left: 2+, posterior tibialis,right: 2+, posterior tibialis,left: 2+ Gastrointestinal/Abdominal: normal bowel sounds, non tender, soft Back Exam: normal inspection, no CVA tenderness, no vertebral tenderness Extremity: pelvis stable, deformity - R HIP, swelling Neurologic: alert, normal mood/affect Skin Exam: normal color, warm/dry Lymphatic: no adenopathy Progress - Progress Progress: 11/08/17 02:43 R INTERTROCHANTERIC FEMUR FRX. I SPOKE WITH [facility] WHO IS ACCEPTING, DR ROCKY BUI AND DR ARELLANO HOSPITALIST. THANK YOU VERY MUCH [facility] FOR ACCEPTING FURTHER CARE. 11/08/17 02:46 PT HAS GOOD PULSES OF RLE. TRACTION SPLINT APPLIED FOR TRANSFER. Departure - Departure Clinical Impression: Intertrochanteric fracture of right femur, Right thigh pain Disposition: Transfer to Hospital Condition: Fair Departure Forms: ED Discharge - Pt. Copy, Patient Portal Self Enrollment Instructions: DI for Trauma Diet: other - NPO Activity: other - NON WEIGHT BEARING Referrals: Jose Alberto Morelos MD [Primary Care Provider] - 1-2 Weeks Home Medications: Ambulatory Orders Gabapentin [Neurontin] 600 mg PO BEDTIME 08/28/12 Atorvastatin Calcium [Lipitor] 10 mg PO BEDTIME 12/13/15 Acetaminophen [Tylenol] 500 mg PO Q6HR PRN 12/23/15 Docusate Sodium [Colace] 1 each PO DAILY PRN 12/23/15 Metoprolol Succinate [Toprol Xl] 25 mg PO BEDTIME 04/25/16 Potassium Citrate (Alkalinizer [Potassium Citrate ER] 1,080 mg PO NIRAJ-OTH-DAY hydrOXYzine HCl [Atarax] 25 mg PO Q4HR PRN 04/25/16 Diltiazem HCl 30 mg PO BID 04/29/17 Folic Ttlb-Glpuedoxhq-Zwjturhr [Folbic 2.5-25-2 mg] 1 tab PO DAILY 04/29/17 Isosorbide Mononitrate [Isosorbide Mononitrate ER] 30 mg PO DAILY 04/29/17 Promethazine Tab [Phenergan Tablet] 25 mg PO Q6H PRN 04/29/17 Furosemide Tab [Lasix Tab] 40 mg PO DAILY 04/30/17 Tramadol HCl 50 mg PO Q4H PRN 08/27/17 Ibuprofen 400 mg PO Q6H PRN 10/19/17 Magnesium Hydroxide [Milk Of Magnesia] 30 ml PO DAILY PRN 10/19/17 Polyethylene Glycol 3350 [Miralax] 17 gm PO DAILY 10/19/17 FLUoxetine HCL [Prozac] 10 mg PO DAILY 11/08/17 HYDROcodone 10MG/APAP 325MG [Ideal 10/325] 1 tab PO Q4HR PRN 11/08/17 HYDROcodone 10MG/APAP 325MG [Ideal 10/325] 1 tab PO TID 11/08/17 Transfer to Outside Facility - Transfer Information Accepting Facility: [facility] Reason for Transfer: specialized care not available
--- NOTE | 2017-11-08 02:29 | RAD ---
EXAM DESCRIPTION: Knee,Right Complete CLINICAL HISTORY: fall COMPARISON: None. FINDINGS: Right knee, 2 views. No acute fracture or dislocation. Osteopenia. 3 compartment joint space narrowing and marginal osteophytosis. Chondrocalcinosis. Atherosclerotic vascular calcification. IMPRESSION: No acute fracture or dislocation. Electronically signed by: Damien Amador 11/08/2017 2:27 AM CDT
--- NOTE | 2017-11-08 02:31 | RAD ---
EXAM DESCRIPTION: Hip,Right 2 Views (accession [id number]), Pelvis (accession [id number]) CLINICAL HISTORY: fall, fell on hip COMPARISON: None. FINDINGS: Single view of the pelvis and 2 views of the right hip. Acute mildly displaced intertrochanteric fracture of the right femur. Osteopenia. Left total hip arthroplasty. Mild right hip joint space narrowing. Atherosclerotic vascular calcification. IMPRESSION: 1. Acute mildly displaced intertrochanteric fracture of the right femur. Electronically signed by: Damien Amador 11/08/2017 2:29 AM CDT
--- NOTE | 2017-11-08 02:31 | RAD ---
EXAM DESCRIPTION: Hip,Right 2 Views (accession [id number]), Pelvis (accession [id number]) CLINICAL HISTORY: fall, fell on hip COMPARISON: None. FINDINGS: Single view of the pelvis and 2 views of the right hip. Acute mildly displaced intertrochanteric fracture of the right femur. Osteopenia. Left total hip arthroplasty. Mild right hip joint space narrowing. Atherosclerotic vascular calcification. IMPRESSION: 1. Acute mildly displaced intertrochanteric fracture of the right femur. Electronically signed by: Damien Amador 11/08/2017 2:29 AM CDT
[2017-11-08 03:12] VITALS: BP 135/83; TEMP 97.5; O2SAT 99
== END 2017-11-08 03:31 | disposition short-term general hospital (02) ==
LOC: ER 01:48
DX: S72.141A Displaced intertrochanteric fracture of right femur, initial encounter for closed fracture (principal); J44.9 Chronic obstructive pulmonary disease, unspecified; I10 Essential (primary) hypertension; Z87.891 Personal history of nicotine dependence; Z79.899 Other long term (current) drug therapy; Z88.6 Allergy status to analgesic agent; W19.XXXA Unspecified fall, initial encounter; Y92.129 Unspecified place in nursing home as the place of occurrence of the external cause
CPT/HCPCS: 72170; 73502; 73562; J2270

== ENCOUNTER → 2017-11-17 | Outpatient (CLI) | payer MEDICARE | LOC: GOCC 13:46 | PROVIDERS: ATTEND Family Medicine | DX: R30.0 Dysuria (principal); R41.0 Disorientation, unspecified ==

== ENCOUNTER 2017-12-15 23:42 | Emergency (ER) | payer MEDICARE ==
[2017-12-15] MEDS ORDERED: TETANUS,DIPHTHERIA,PERTUSSIS 1 EA SYG IM ONE (23:57)
--- NOTE | 2017-12-16 01:11 | CT ---
CT cervical spine without contrast on 12/16/2017 CLINICAL INDICATION: Neck pain after fall TECHNIQUE: Multiple axial images are obtained throughout the cervical spine without the administration of contrast. Sagittal and coronal reformatted images are also performed and reviewed. This exam was performed according to our departmental dose-optimization program, which includes automated exposure control, adjustment of the mA and/or kV according to patient size and/or use of iterative reconstruction technique. Total DLP is 501.05 mGy*cm. COMPARISON: 08/27/2017 FINDINGS: Reformatted images reveal normal alignment of the cervical spine. Degenerative facet disease is noted worse on the left in the lower cervical spine. There is no prevertebral soft tissue swelling. Bilateral carotid calcifications are noted. There are no acute fracture lines. Emphysematous changes are noted in the lung apices. No definite disc herniation is noted. IMPRESSION: Mild degenerative changes with no acute abnormality. Electronically signed by: Kendall Trevino 12/16/2017 1:09 AM CDT
--- NOTE | 2017-12-16 01:12 | RAD ---
Left femur two view on 12/15/2017 CLINICAL INDICATION: Leg pain after fall COMPARISON: 06/17/2017 FINDINGS: The patient is status post a left total hip arthroplasty and total knee arthroplasty. There is osteopenia. Vascular calcifications are noted. No hardware complication is noted. There are no fractures. There is no dislocation. IMPRESSION: No acute abnormality. Electronically signed by: Kendall Trevino 12/16/2017 1:11 AM CDT
--- NOTE | 2017-12-16 01:13 | CT ---
EXAM: CT head without contrast. INDICATION: Fall. TECHNIQUE: Contiguous axial CT images of the brain. Intravenous contrast: Absent. DLP 752 mGy-cm. This exam was performed according to our departmental dose-optimization program, which includes automated exposure control, adjustment of the mA and/or kV according to patient size and/or use of iterative reconstruction technique. COMPARISON: 10/19/2017. FINDINGS: Subcutaneous: Unremarkable. No acute intracranial hemorrhage. There is diffuse cerebral atrophy with moderate periventricular and deep white matter chronic microvascular changes. 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 No midline shift. No mass effect. Ventricles: No hydrocephalus. Phoenix-white differentiation preserved. Paranasal sinuses/mastoid air cells: Visualized portions are aerated. Bones/orbits: Visualized portions are unremarkable. IMPRESSION: 1. No CT evidence of acute intracranial hemorrhage. Electronically signed by: Shashi Hernandez MD 12/16/2017 1:12 AM CDT Workstation: [email or web address]
--- NOTE | 2017-12-16 01:14 | RAD ---
Right hip two view on 12/16/2017 Clinical indications: Pain after fall COMPARISON: 11/01/1717 FINDINGS: There is new compression nail and intramedullary elan traversing the prior comminuted intertrochanteric femur fracture. The main fracture fragments appear in good alignment. No new fracture is noted. There is osteopenia. Vascular calcifications are noted. IMPRESSION: Hardware fixation of the prior intertrochanteric femur fracture with no acute abnormality. Electronically signed by: Kendall Trevino 12/16/2017 1:12 AM CDT
--- NOTE | 2017-12-16 01:15 | RAD ---
EXAM: Two view(s) of the left tibia and fibula. INDICATION: Pain. COMPARISON: None. FINDINGS: No acute fracture or dislocation. Bones are demineralized. There are changes of a left knee arthroplasty. No large soft tissue swelling. IMPRESSION: 1. No acute fracture. Electronically signed by: Shashi Hernandez MD 12/16/2017 1:14 AM CDT Workstation: [id number]
--- NOTE | 2017-12-16 01:15 | RAD ---
EXAM: Two view(s) of the right knee. INDICATION: Pain. COMPARISON: None. FINDINGS: No acute fracture or dislocation. The bones are demineralized. There is medial compartment joint space narrowing with subchondral sclerosis. No large soft tissue swelling. IMPRESSION: 1. No acute fracture. Electronically signed by: Shashi Hernandez MD 12/16/2017 1:13 AM CDT Workstation: [email or web address]
--- NOTE | 2017-12-16 01:16 | RAD ---
Lumbar spine three view on 12/16/2017 CLINICAL INDICATION: Low back pain after fall COMPARISON: CT from 10/19/2017 FINDINGS: There is again noted levoscoliosis of the lumbar spine. Vascular calcifications are noted. The patient is status post L5 laminectomy. There is an old compression fracture of the superior endplate of L1 with mild to moderate loss of height. Degenerative facet disease is noted in the lower lumbar spine. Lumbar spine is otherwise well aligned. No acute fracture is noted. IMPRESSION: Stable exam with no acute abnormality. Electronically signed by: Kendall Trevino 12/16/2017 1:15 AM CDT
--- NOTE | 2017-12-16 01:16 | RAD ---
EXAM: Two view(s) of the thoracic spine. INDICATION: Pain, thoracic spine. COMPARISON: None. FINDINGS: Alignment: Intact. Fracture: No acute compression fracture or subluxation. Paravertebral soft tissues: No large hematoma. The bones are demineralized. IMPRESSION: 1. No acute compression fracture. Electronically signed by: Shashi Hernandez MD 12/16/2017 1:15 AM CDT Workstation: [employer]
--- NOTE | 2017-12-16 01:45 | ED.PDOC ---
History of Present Illness - General Chief Complaint: Trauma Stated Complaint: Rt hip pain Time Seen by Provider: 12/15/17 23:54 Source: patient, RN notes reviewed, Vital Signs reviewed, EMS, intermediate records - History of Present Illness Initial Comments: Reportedly she rolled out of bed onto her right side. Denies loss of consciousness but says she hurts everywhere. Occurred: just prior to arrival Severity: moderate Injuries/Pain Location: head, neck, back, lower extremity Reason for Fall: unknown Loss of Consciousness: no loss of consciousness Improving Factors: nothing Worsening Factors: movement Associated Symptoms (Fall): headache, neck pain Allergies/Adverse Reactions: Allergies ARTEMIO Inhibitors Allergy (Verified 09/12/17 07:11) Vomitting Codeine Allergy (Verified 09/12/17 07:11) Penicillins Allergy (Verified 09/12/17 07:11) Vomitting Home Medications: Ambulatory Orders Gabapentin [Neurontin] 600 mg PO BEDTIME 08/28/12 Atorvastatin Calcium [Lipitor] 10 mg PO BEDTIME 12/13/15 Acetaminophen [Tylenol] 500 mg PO Q6HR PRN 12/23/15 Docusate Sodium [Colace] 1 each PO DAILY PRN 12/23/15 Metoprolol Succinate [Toprol Xl] 25 mg PO BEDTIME 04/25/16 Potassium Citrate (Alkalinizer [Potassium Citrate ER] 1,080 mg PO NIRAJ-OTH-DAY hydrOXYzine HCl [Atarax] 25 mg PO Q4HR PRN 04/25/16 Diltiazem HCl 30 mg PO BID 04/29/17 Folic Ckmm-Nmaykbruxk-Pzbzivwy [Folbic 2.5-25-2 mg] 1 tab PO DAILY 04/29/17 Isosorbide Mononitrate [Isosorbide Mononitrate ER] 30 mg PO DAILY 04/29/17 Promethazine Tab [Phenergan Tablet] 25 mg PO Q6H PRN 04/29/17 Furosemide Tab [Lasix Tab] 40 mg PO DAILY 04/30/17 Tramadol HCl 50 mg PO Q4H PRN 08/27/17 Ibuprofen 400 mg PO Q6H PRN 10/19/17 Magnesium Hydroxide [Milk Of Magnesia] 30 ml PO DAILY PRN 10/19/17 Polyethylene Glycol 3350 [Miralax] 17 gm PO DAILY 10/19/17 FLUoxetine HCL [Prozac] 10 mg PO DAILY 11/08/17 HYDROcodone 10MG/APAP 325MG [Lutz 10/325] 1 tab PO Q4HR PRN 11/08/17 HYDROcodone 10MG/APAP 325MG [Lutz 10/325] 1 tab PO TID 11/08/17 Review of Systems - Review of Systems Constitutional: States: see HPI EENTM: Denies: nose pain, mouth pain Respiratory: States: cough, other - no new dyspnea Cardiology: States: no symptoms reported Gastrointestinal/Abdominal: States: no symptoms reported Genitourinary: Denies: pain Musculoskeletal: States: see HPI, back pain, joint pain, muscle pain, neck pain Skin: States: no symptoms reported Neurological: States: headache. Denies: paresthesia, weakness Hematologic/Lymphatic: States: easy bleeding Past Medical History (General) - Patient Medical History Hx Seizures: No Hx Stroke: No Hx Dementia: No Hx Asthma: No Hx of COPD: Yes Hx Cardiac Disorders: No Hx Congestive Heart Failure: No Hx Pacemaker: No Hx Hypertension: Yes Hx Thyroid Disease: No Hx Diabetes: No Hx Gastroesophageal Reflux: No Hx Renal Disease: No Hx Cancer: No Hx of HIV: No Hx Hepatitis C: No Hx MRSA: No MRSA Source:: Wound Surgical History: other - Vaccination History Hx Tetanus, Diphtheria Vaccination: No Hx Influenza Vaccination: Yes Hx Pneumococcal Vaccination: No - Social History Hx Tobacco Use: Yes Hx Chewing Tobacco Use: No Hx Alcohol Use: No Hx Substance Use: No Hx Substance Use Treatment: No Hx Depression: No Feels Threatened In Home Enviroment: No Feels Threatened In a Relationship: No Hx Physical Abuse: No Hx Emotional Abuse: No Hx Suspected Abuse: No - Activities of Daily Living Jail/Assisted Living (if applicable):: [facility] Agency (if applicable):: None - Female History Patient is a Female of Child Bearing Age (10 -59 yrs old): No Patient : No - Triage Comment ED Triage Comment: EMS stated that pt fell out of bed onto a padded mat on floor. Pt c/o pain all over after fall primarily to right hip and buttocks area. Pt has history of broken right hip with repair in 2017.1` Physical Exam - Physical Exam General Appearance: Alert, Comfortable, Frail, No apparent distress Head Injury: ecchymosis, other - skin tear over left tibia with mild bleeding Eye Exam: bilateral normal ENT Exam: hearing grossly normal, no evidence of ENT injury Cardiovascular/Respiratory: normal peripheral pulses, no respiratory distress Gastrointestinal/Abdominal: non tender, soft, no organomegaly Back Exam: normal inspection, decreased range of motion, other - diffuse pain to her entire back Extremity Exam: no pedal edema - upper extremities non tender; right hip & knee tender; left thigh & leg tender; painful ROM, pelvis stable Neurologic: no motor/sensory deficits, alert, normal mood/affect, oriented x 3 Skin Exam: normal color, warm/dry - Maikel Coma Score Best Eye Response (Coy): (4) open spontaneously Best Verbal Response (Maikel): (5) oriented Best Motor Response (Maikel): (6) obeys commands Coy Total: 15 Progress - EKG/XRAY/CT XRAY: knee - nml Xray Comments: hip, knee, femur, tib-fib, spine all with no acute process CT Ordered: Yes - no acute process Departure - Departure Clinical Impression: Abrasion Contusion of hip, right Qualifiers: Encounter type: initial encounter Qualified Code(s): S70.01XA - Contusion of right hip, initial encounter Strain of neck muscle Qualifiers: Encounter type: initial encounter Qualified Code(s): S16.1XXA - Strain of muscle, fascia and tendon at neck level, initial encounter Headache Qualifiers: Headache type: post-traumatic Headache chronicity pattern: unspecified pattern Intractability: not intractable Qualified Code(s): G44.309 - Post-traumatic headache, unspecified, not intractable Contusion Qualifiers: Encounter type: initial encounter Contusion area: lower leg Laterality: left Qualified Code(s): S80.12XA - Contusion of left lower leg, initial encounter Contusion of knee, right Qualifiers: Encounter type: initial encounter Qualified Code(s): S80.01XA - Contusion of right knee, initial encounter Back pain Qualifiers: Back pain location: low back pain Chronicity: acute Back pain laterality: bilateral Sciatica presence: without sciatica Qualified Code(s): M54.5 - Low back pain Time of Disposition: 01:47 Disposition: Discharge to Rehab Facility Condition: Good Departure Forms: ED Discharge - Pt. Copy, Patient Portal Self Enrollment Instructions: DI for Trauma Home Medications: Ambulatory Orders Gabapentin [Neurontin] 600 mg PO BEDTIME 08/28/12 Atorvastatin Calcium [Lipitor] 10 mg PO BEDTIME 12/13/15 Acetaminophen [Tylenol] 500 mg PO Q6HR PRN 12/23/15 Docusate Sodium [Colace] 1 each PO DAILY PRN 12/23/15 Metoprolol Succinate [Toprol Xl] 25 mg PO BEDTIME 04/25/16 Potassium Citrate (Alkalinizer [Potassium Citrate ER] 1,080 mg PO NIRAJ-OTH-DAY hydrOXYzine HCl [Atarax] 25 mg PO Q4HR PRN 04/25/16 Diltiazem HCl 30 mg PO BID 04/29/17 Folic Nyia-Beqlisoosr-Fzzgdlrj [Folbic 2.5-25-2 mg] 1 tab PO DAILY 04/29/17 Isosorbide Mononitrate [Isosorbide Mononitrate ER] 30 mg PO DAILY 04/29/17 Promethazine Tab [Phenergan Tablet] 25 mg PO Q6H PRN 04/29/17 Furosemide Tab [Lasix Tab] 40 mg PO DAILY 04/30/17 Tramadol HCl 50 mg PO Q4H PRN 08/27/17 Ibuprofen 400 mg PO Q6H PRN 10/19/17 Magnesium Hydroxide [Milk Of Magnesia] 30 ml PO DAILY PRN 10/19/17 Polyethylene Glycol 3350 [Miralax] 17 gm PO DAILY 10/19/17 FLUoxetine HCL [Prozac] 10 mg PO DAILY 11/08/17 HYDROcodone 10MG/APAP 325MG [Lutz 10/325] 1 tab PO Q4HR PRN 11/08/17 HYDROcodone 10MG/APAP 325MG [Lutz 10/325] 1 tab PO TID 11/08/17
[2017-12-16 02:08] VITALS: BP 132/65; TEMP 98.4; O2SAT 97
== END 2017-12-16 02:00 ==
LOC: ER 23:42
DX: S70.01XA Contusion of right hip, initial encounter (principal); S16.1XXA Strain of muscle, fascia and tendon at neck level, initial encounter; G44.309 Post-traumatic headache, unspecified, not intractable; S80.812A Abrasion, left lower leg, initial encounter; S80.01XA Contusion of right knee, initial encounter; M54.5 Low back pain; I10 Essential (primary) hypertension; J44.9 Chronic obstructive pulmonary disease, unspecified; Z87.81 Personal history of (healed) traumatic fracture; Z87.891 Personal history of nicotine dependence; Z79.899 Other long term (current) drug therapy; Z88.5 Allergy status to narcotic agent; Z88.8 Allergy status to other drugs, medicaments and biological substances; Z88.0 Allergy status to penicillin; W06.XXXA Fall from bed, initial encounter; Y92.9 Unspecified place or not applicable

== ENCOUNTER 2018-01-06 16:14 | Emergency (ER) | payer MEDICARE, MEDICAID ==
[2018-01-06 16:32] VITALS: TEMP 99.6
--- NOTE | 2018-01-06 17:37 | CT ---
PROCEDURE: Cervical Spine CLINICAL HISTORY: 87 years Female fall with pain COMPARISON: None. TECHNIQUE: Contiguous axial images obtained through the cervical spine without IV contrast. Coronal and sagittal reformatted images obtained. This exam was performed according to our department optimization program which includes automated exposure control, adjustment of the mA and/or kv according to patient size and/or use of iterative reconstruction technique. FINDINGS: Normal alignment and lordosis. No acute fracture. Canal appears congenitally narrow. Mild bulging of the disc at C3-4 with mild narrowing of the central canal. Small focal protrusion at C4-5 without central canal stenosis. Facet arthropathy at multiple levels. IMPRESSION: No acute cervical spinal fracture is identified. Electronically signed by: Brittney Ortiz MD 01/06/2018 5:36 PM CDT
--- NOTE | 2018-01-06 17:38 | CT ---
PROCEDURE: Head CLINICAL HISTORY: 87 years Female fall with pain COMPARISON: 12/16/2017. TECHNIQUE: Contiguous axial CT images obtained through the brain without IV contrast. This exam was performed according to our department optimization program which includes automated exposure control, adjustment of the mA and/or kv according to patient size and/or use of iterative reconstruction technique. FINDINGS: The ventricles and sulci are prominent consistent with atrophic changes. Microvascular ischemic changes. No midline shift or mass effect. No mass lesions. No acute hemorrhage. Atherosclerotic calcifications. Area of previous infarct in the right frontal lobe which is unchanged. No fluid or significant mucosal thickening in the visualized paranasal sinuses. No depressed calvarial fractures. IMPRESSION: No acute intracranial abnormality is identified. Generalized atrophy with microvascular ischemic changes. Electronically signed by: Brittney Ortiz MD 01/06/2018 5:37 PM CDT
--- NOTE | 2018-01-06 17:42 | CT ---
PROCEDURE: Pelvis CLINICAL HISTORY: 87 years ,Female ,fall with pain COMPARISON: 08/27/2017 TECHNIQUE: Contiguous axial images obtained through the pelvis without IV contrast. Coronal and sagittal reformatted images obtained. This exam was performed according to our department optimization program which includes automated exposure control, adjustment of the mA and/or kv according to patient size and/or use of iterative reconstruction technique. FINDINGS: Vascular calcification in aorta and its branches. TFN in the right hip. This transfixes a comminuted intertrochanteric fracture. There has been some interval callus formation the fracture margins are still well seen. No evidence of periprosthetic fracture. There are chronic fractures of the pubic rami bilaterally. Bony demineralization is present. Left hip prosthesis. The symphysis pubis and SI joints appear intact. Some sclerosis along the left sacral ala which was present on the previous examination and may be related to sacroiliitis or previous fracture. IMPRESSION: Chronic fractures of the inferior and superior pubic rami ORIF of intertrochanteric femoral fracture on the right which appears subacute with some interval callus formation Prosthetic hip on the left Incidental note made of diverticulosis. Electronically signed by: Brittney Ortiz MD 01/06/2018 5:41 PM CDT
--- NOTE | 2018-01-06 18:01 | ED.PDOC ---
History of Present Illness - General Chief Complaint: Trauma Stated Complaint: fall Time Seen by Provider: 01/06/18 16:22 Source: patient Exam Limitations: no limitations - History of Present Illness Initial Comments: the patient is an 87-year-old female presenting after a fall at the half-way. The patient tripped and fell. She is supposed to be using assistive devices and frequently does not. This is a second fall in 3 days. The patient has some pain around the left side of her pelvis and she states that she had the back of her head. No loss of consciousness. She is alert and interactive and in no acute distress. She is actually able to move all 4 extremities well she is able to move her hips actively and passively without significant discomfort. She does have significant bruising on her extremities from her previous falls. She has a healing skin tear to her left anterior matamoros. I do not see any evidence of any laceration or hematoma on her scalp from the fall. She did report some mild neck pain to EMS in transit and does arrive with a cervical collar. She is pleasant and cooperative otherwise. No current distress. Timing/Duration: momentarily Severity: moderate Improving Factors: nothing Worsening Factors: movement Associated Symptoms: headaches Allergies/Adverse Reactions: Allergies ARTEMIO Inhibitors Allergy (Verified 01/06/18 16:32) Vomitting Codeine Allergy (Verified 01/06/18 16:32) Penicillins Allergy (Verified 01/06/18 16:32) Vomitting Home Medications: Ambulatory Orders Gabapentin [Neurontin] 600 mg PO BEDTIME 08/28/12 Atorvastatin Calcium [Lipitor] 10 mg PO BEDTIME 12/13/15 Acetaminophen [Tylenol] 500 mg PO Q6HR PRN 12/23/15 Docusate Sodium [Colace] 1 each PO DAILY PRN 12/23/15 Metoprolol Succinate [Toprol Xl] 25 mg PO BEDTIME 04/25/16 Potassium Citrate (Alkalinizer [Potassium Citrate ER] 1,080 mg PO NIRAJ-OTH-DAY hydrOXYzine HCl [Atarax] 25 mg PO Q4HR PRN 04/25/16 Diltiazem HCl 30 mg PO BID 04/29/17 Folic Otha-Jewvbmupqa-Ibuekmzy [Folbic 2.5-25-2 mg] 1 tab PO DAILY 04/29/17 Isosorbide Mononitrate [Isosorbide Mononitrate ER] 30 mg PO DAILY 04/29/17 Promethazine Tab [Phenergan Tablet] 25 mg PO Q6H PRN 04/29/17 Furosemide Tab [Lasix Tab] 40 mg PO DAILY 04/30/17 Tramadol HCl 50 mg PO Q4H PRN 08/27/17 Ibuprofen 400 mg PO Q6H PRN 10/19/17 Magnesium Hydroxide [Milk Of Magnesia] 30 ml PO DAILY PRN 10/19/17 Polyethylene Glycol 3350 [Miralax] 17 gm PO DAILY 10/19/17 FLUoxetine HCL [Prozac] 10 mg PO DAILY 11/08/17 HYDROcodone 10MG/APAP 325MG [[place] 10/325] 1 tab PO Q4HR PRN 11/08/17 HYDROcodone 10MG/APAP 325MG [[place] 10/325] 1 tab PO TID 11/08/17 Review of Systems - Review of Systems Constitutional: States: no symptoms reported EENTM: States: no symptoms reported Respiratory: States: no symptoms reported Cardiology: States: no symptoms reported Gastrointestinal/Abdominal: States: no symptoms reported Genitourinary: States: no symptoms reported Musculoskeletal: States: see HPI Skin: States: see HPI Neurological: States: see HPI Endocrine: States: no symptoms reported All other Systems: No Change from Baseline Past Medical History (General) - Patient Medical History Hx Seizures: No Hx Stroke: No Hx Dementia: No Hx Asthma: No Hx of COPD: Yes Hx Cardiac Disorders: Yes - CAD Hx Congestive Heart Failure: No Hx Pacemaker: No Hx Hypertension: Yes Hx Thyroid Disease: No Hx Diabetes: No Hx Gastroesophageal Reflux: No Hx Renal Disease: No Hx Cancer: No Hx of HIV: No Hx Hepatitis C: No Hx MRSA: No MRSA Source:: Wound - Vaccination History Hx Tetanus, Diphtheria Vaccination: No Hx Influenza Vaccination: Yes Hx Pneumococcal Vaccination: Yes - Social History Hx Tobacco Use: Yes Hx Chewing Tobacco Use: No Hx Alcohol Use: No Hx Substance Use: No Hx Substance Use Treatment: No Hx Depression: No Hx Physical Abuse: No Hx Emotional Abuse: No Hx Suspected Abuse: No - Activities of Daily Living Jail/Assisted Living (if applicable):: [facility] - Female History Patient : No Family Medical History - Family History Mother Family History: No Known Living Status: Hx Family Asthma: No Hx Family Congestive Heart Failure: No Hx Family Hypertension: No Hx Family Stroke: No Hx Cardiac Disease: Yes Hx Family Diabetes: No Hx Family Cancer: No Physical Exam - Physical Exam General Appearance: Alert, Comfortable, No apparent distress Eye Exam: bilateral normal Ears, Nose, Throat: hearing grossly normal, normal ENT inspection Neck: non-tender, full range of motion, supple Respiratory: lungs clear, normal breath sounds, no respiratory distress, no accessory muscle use Cardiovascular/Chest: normal peripheral pulses, no edema Peripheral Pulses: radial,right: 2+, radial,left: 2+, dorsalis pedis,right: 2+, dorsalis pedis,left: 2+ Gastrointestinal/Abdominal: non tender, soft Rectal Exam: other - the patient has mild left lateral pelvic discomfort palpation. No obvious crepitus. No bruising and no laceration. She has some mild tenderness to palpation over the left lateral hip. Back Exam: normal inspection, no CVA tenderness, no vertebral tenderness Extremity: non-tender, no pedal edema, no calf tenderness, normal capillary refill, other - passive and active range of motion of the feet and ankles knees and hips bilaterally appear to be intact. She shows good strength with her lower extremities and upper extremities. Neurologic: maitre d' II-XII nml as tested, alert, normal mood/affect - for this patient with her chronic dementia Skin Exam: other - multiple small bruises from previous falls Comments: Vital Signs - 24 hr 01/06/18 01/06/18 16:19 17:37 Temperature 99.6 F Pulse Rate [ 83 78 pulse ox] Respiratory 20 16 Rate Blood Pressure 122/64 121/55 [Right Arm] O2 Sat by Pulse 91 L 97 Oximetry Progress - Progress Progress: 01/06/18 18:02 the patient's an 87-year-old female presenting to the emergency room secondary to a fall at the half-way. The patient has had at least 13 visits to the emergency room over the last 2 years for falls, related to her gait instability and dementia. CT scan of the head and cervical spine showed no acute pathology. CT scan of the pelvis shows multiple previous surgery sites as well as multiple partially healed fracture sites from previous falls but no evidence of any acute fracture. I would recommend that the patient ambulate in a wheelchair to prevent further falls in the near future. This will likely be difficult to enforce as she does appear to be difficult to control given her moderate dementia. The patient be transferred back to the half-way. She needs to follow up with her primary care doctor early this coming week. Obviously if any pain persists or worsens over the next week then she may require additional studies. Departure - Departure Clinical Impression: Fall at half-way Qualifiers: Encounter type: initial encounter Qualified Code(s): W19.XXXA - Unspecified fall, initial encounter; Y92.129 - Unspecified place in half-way as the place of occurrence of the external cause; Y92.129 - Unspecified place in half-way as the place of occurrence of the external cause Disposition: Discharge to SNF Condition: Poor Departure Forms: ED Discharge - Pt. Copy, Patient Portal Self Enrollment Diet: regular diet Activity: other Referrals: GRETCHEN HIGGINS MD [Primary Care Provider] - 1-5 Days Home Medications: Ambulatory Orders Gabapentin [Neurontin] 600 mg PO BEDTIME 08/28/12 Atorvastatin Calcium [Lipitor] 10 mg PO BEDTIME 12/13/15 Acetaminophen [Tylenol] 500 mg PO Q6HR PRN 12/23/15 Docusate Sodium [Colace] 1 each PO DAILY PRN 12/23/15 Metoprolol Succinate [Toprol Xl] 25 mg PO BEDTIME 04/25/16 Potassium Citrate (Alkalinizer [Potassium Citrate ER] 1,080 mg PO NIRAJ-OTH-DAY hydrOXYzine HCl [Atarax] 25 mg PO Q4HR PRN 04/25/16 Diltiazem HCl 30 mg PO BID 04/29/17 Folic Uahl-Zpvulisvan-Jcsoxlca [Folbic 2.5-25-2 mg] 1 tab PO DAILY 04/29/17 Isosorbide Mononitrate [Isosorbide Mononitrate ER] 30 mg PO DAILY 04/29/17 Promethazine Tab [Phenergan Tablet] 25 mg PO Q6H PRN 04/29/17 Furosemide Tab [Lasix Tab] 40 mg PO DAILY 04/30/17 Tramadol HCl 50 mg PO Q4H PRN 08/27/17 Ibuprofen 400 mg PO Q6H PRN 10/19/17 Magnesium Hydroxide [Milk Of Magnesia] 30 ml PO DAILY PRN 10/19/17 Polyethylene Glycol 3350 [Miralax] 17 gm PO DAILY 10/19/17 FLUoxetine HCL [Prozac] 10 mg PO DAILY 11/08/17 HYDROcodone 10MG/APAP 325MG [[place] 10/325] 1 tab PO Q4HR PRN 11/08/17 HYDROcodone 10MG/APAP 325MG [[place] 10/325] 1 tab PO TID 11/08/17 Additional Instructions: the patient's an 87-year-old female presenting to the emergency room secondary to a fall at the half-way. The patient has had at least 13 visits to the emergency room over the last 2 years for falls, related to her gait instability and dementia. CT scan of the head and cervical spine showed no acute pathology. CT scan of the pelvis shows multiple previous surgery sites as well as multiple partially healed fracture sites from previous falls but no evidence of any acute fracture. I would recommend that the patient ambulate in a wheelchair to prevent further falls in the near future. This will likely be difficult to enforce as she does appear to be difficult to control given her moderate dementia. The patient be transferred back to the half-way. She needs to follow up with her primary care doctor early this coming week. Obviously if any pain persists or worsens over the next week then she may require additional studies.
[2018-01-06 18:20] VITALS: BP 104/53; O2SAT 96
== END 2018-01-06 18:20 ==
LOC: ER 16:14
DX: R10.2 Pelvic and perineal pain (principal); M25.552 Pain in left hip; F03.90 Unspecified dementia, unspecified severity, without behavioral disturbance, psychotic disturbance, mood disturbance, and anxiety; M54.2 Cervicalgia; G31.9 Degenerative disease of nervous system, unspecified; M47.812 Spondylosis without myelopathy or radiculopathy, cervical region; I25.10 Atherosclerotic heart disease of native coronary artery without angina pectoris; J44.9 Chronic obstructive pulmonary disease, unspecified; I10 Essential (primary) hypertension; Z96.642 Presence of left artificial hip joint; Z98.890 Other specified postprocedural states; Z79.899 Other long term (current) drug therapy; Z88.5 Allergy status to narcotic agent; Z88.0 Allergy status to penicillin; Z88.8 Allergy status to other drugs, medicaments and biological substances; Z87.891 Personal history of nicotine dependence; W01.0XXA Fall on same level from slipping, tripping and stumbling without subsequent striking against object, initial encounter; Y92.129 Unspecified place in nursing home as the place of occurrence of the external cause

== ENCOUNTER 2018-06-08 03:09 | Emergency (ER) | payer MEDICARE, MEDICAID ==
--- NOTE | 2018-06-08 03:33 | RAD ---
LEFT SHOULDER, 2 VIEWS. 06/08/2018 HISTORY: Left shoulder pain after fall. COMPARISON: None. TECHNIQUE: Internal and external humeral views of the left shoulder. FINDINGS: There is complete anterior dislocation of the left proximal humerus. There are several bone fragments lateral to the displaced humeral head. The donor site is along the surgical neck of the proximal humerus. The left upper arm is partially fixed in abduction. The acromioclavicular joint is intact. Bony glenoid appears intact. There is generalized decreased bone density. The included left lung is clear. Moderate aortic atherosclerosis noted. Left imaged ribs are intact. IMPRESSION: 1. Complete anterior dislocation of the proximal left humerus. Associated left proximal humerus surgical neck fracture with several fragments lateral to the displaced humeral head. Electronically signed by: Venus Jacobson DO 06/08/2018 3:32 AM [facility]
[2018-06-08] MEDS ORDERED: HYDROcodone 10MG/APAP 325MG 1 EA TAB ONE (03:41)
[2018-06-08] MEDS ORDERED: HYDROcodone 10MG/APAP 325MG 1 EA TAB PO ONE (03:43)
[2018-06-08] MEDS ORDERED: PROPOFOL 200 MG/20 ML VIAL IV ONE ×3 (03:55→04:25)
[2018-06-08] MEDS ORDERED: SODIUM CHLORIDE 0.9% 1000ML 1,000 ML IVS PRN (04:00)
[2018-06-08] MEDS ORDERED: SODIUM CHLORIDE 0.9% 1000ML 1,000 ML ONE (04:02)
[2018-06-08] MEDS ORDERED: MORPHINE SULFATE INJ 10 MG/ML VIAL IV ONE ×2 (04:30→08:50)
--- NOTE | 2018-06-08 04:30 | RAD ---
Left shoulder single view on 06/08/2018 CLINICAL INDICATION: Postreduction COMPARISON: 06/08/2018 FINDINGS: There is continued anterior inferior dislocation of the humeral head in relation to the glenoid. There is now greater displacement of the comminuted displaced humeral neck fracture. There is greater lateral displacement of the main distal fracture fragment. There is osteopenia. IMPRESSION: Continued fracture/dislocation of the left humeral head/neck. Electronically signed by: Kendall Trevino 06/08/2018 4:29 AM [facility]
[2018-06-08] MEDS ORDERED: MORPHINE SULFATE INJ 10 MG/ML VIAL ONE ×2 (04:41→08:50)
--- NOTE | 2018-06-08 04:44 | RAD ---
LEFT SHOULDER, 2 VIEWS. 06/08/2018 at 0429 hours HISTORY: Post reduction. COMPARISON: Left shoulder 06/08/2018 at 0320 hours and 0417 hours.. TECHNIQUE: Single AP view of the left shoulder. FINDINGS: There is a complete complex transverse fracture involving the surgical neck of the left humerus. The humeral head fragment continues to be inferiorly and presumably anteriorly displaced relative to the bony glenoid. The diaphyseal fragment is now aligned with the bony glenoid. Complete evaluation of limited without an orthogonal view. IMPRESSION: 1. Improved alignment of the diaphyseal fragment of the left proximal humerus fracture relative to the bony glenoid. The humeral head fragment remains inferiorly and presumably anteriorly displaced when compared to reference exam. Electronically signed by: Venus Jacobson DO 06/08/2018 4:43 AM [facility]
--- NOTE | 2018-06-08 04:52 | ED.PDOC ---
History of Present Illness - General Chief Complaint: Trauma Stated Complaint: fell in bathroom Time Seen by Provider: 06/08/18 03:40 Source: patient, EMS, [facility] Exam Limitations: no limitations - History of Present Illness Initial Comments: [facility] She fell onto her left shoulder. She did not strike her head and no LOC. Has pain in the left superior humerus and left shoulder, no radiation, aching and throbbing in nature, worse with movement, better with rest. No other injuries nor complaints. Timing/Duration: 1-3 hours Severity: moderate Improving Factors: rest Worsening Factors: movement Associated Symptoms: denies symptoms Allergies/Adverse Reactions: Allergies ARTEMIO Inhibitors Allergy (Verified 01/06/18 16:32) Vomitting Codeine Allergy (Verified 01/06/18 16:32) Penicillins Allergy (Verified 01/06/18 16:32) Vomitting Home Medications: Ambulatory Orders Gabapentin [Neurontin] 600 mg PO BEDTIME 08/28/12 Atorvastatin Calcium [Lipitor] 10 mg PO BEDTIME 12/13/15 Acetaminophen [Tylenol] 500 mg PO Q6HR PRN 12/23/15 Docusate Sodium [Colace] 1 each PO DAILY PRN 12/23/15 Metoprolol Succinate [Toprol Xl] 25 mg PO BEDTIME 04/25/16 Potassium Citrate (Alkalinizer [Potassium Citrate ER] 1,080 mg PO NIRAJ-OTH-DAY 04/25/16 hydrOXYzine HCl [Atarax] 25 mg PO Q4HR PRN 04/25/16 Diltiazem HCl 30 mg PO BID 04/29/17 Folic Vcqh-Tnfkyhdrkn-Iyzvlpxy [Folbic 2.5-25-2 mg] 1 tab PO DAILY 04/29/17 Isosorbide Mononitrate [Isosorbide Mononitrate ER] 30 mg PO DAILY 04/29/17 Promethazine Tab [Phenergan Tablet] 25 mg PO Q6H PRN 04/29/17 Furosemide Tab [Lasix Tab] 40 mg PO DAILY 04/30/17 Tramadol HCl 50 mg PO Q4H PRN 08/27/17 Ibuprofen 400 mg PO Q6H PRN 10/19/17 Magnesium Hydroxide [Milk Of Magnesia] 30 ml PO DAILY PRN 10/19/17 Polyethylene Glycol 3350 [Miralax] 17 gm PO DAILY 10/19/17 FLUoxetine HCL [Prozac] 10 mg PO DAILY 11/08/17 HYDROcodone 10MG/APAP 325MG [[place] 10/325] 1 tab PO Q4HR PRN 11/08/17 HYDROcodone 10MG/APAP 325MG [[place] 10/325] 1 tab PO TID 11/08/17 Review of Systems - Review of Systems Constitutional: States: no symptoms reported EENTM: States: no symptoms reported Respiratory: States: no symptoms reported Cardiology: States: no symptoms reported Gastrointestinal/Abdominal: States: no symptoms reported Genitourinary: States: no symptoms reported Musculoskeletal: States: see HPI Skin: States: no symptoms reported Neurological: States: no symptoms reported Endocrine: States: no symptoms reported Hematologic/Lymphatic: States: no symptoms reported Past Medical History (General) - Patient Medical History Hx Seizures: No Hx Stroke: No Hx Dementia: No Hx Asthma: No Hx of COPD: Yes Hx Cardiac Disorders: Yes - CAD Hx Congestive Heart Failure: No Hx Pacemaker: No Hx Hypertension: Yes Hx Thyroid Disease: No Hx Diabetes: No Hx Gastroesophageal Reflux: No Hx Renal Disease: No Hx Cancer: No Hx of HIV: No Hx Hepatitis C: No Hx MRSA: No MRSA Source:: Wound - Vaccination History Hx Tetanus, Diphtheria Vaccination: No Hx Influenza Vaccination: Yes Hx Pneumococcal Vaccination: Yes - Social History Hx Tobacco Use: Yes Hx Chewing Tobacco Use: No Hx Alcohol Use: No Hx Substance Use: No Hx Substance Use Treatment: No Hx Depression: No Hx Physical Abuse: No Hx Emotional Abuse: No Hx Suspected Abuse: No - Female History Patient : No Family Medical History - Family History Mother Family History: No Known Living Status: Hx Family Asthma: No Hx Family Congestive Heart Failure: No Hx Family Hypertension: No Hx Family Stroke: No Hx Cardiac Disease: Yes Hx Family Diabetes: No Hx Family Cancer: No Physical Exam - Physical Exam General Appearance: Obvious distress - mild distress Ears, Nose, Throat: normal ENT inspection Neck: non-tender, full range of motion, supple Respiratory: lungs clear, normal breath sounds Cardiovascular/Chest: normal peripheral pulses, regular rate, rhythm Gastrointestinal/Abdominal: normal bowel sounds, non tender, soft Back Exam: no CVA tenderness, no vertebral tenderness Extremity: other - Patient holds her left arm at 90 degree flexion and internally rotated. TTTP over the proximal half of the humerus, acromion, and clavicle. No swelling. There is visual anterior dislocation of the head of the humerus. Neurologic: no motor/sensory deficits, alert, normal mood/affect, oriented x 3 Skin Exam: normal color Lymphatic: no adenopathy Progress - Progress Progress: 06/08/18 04:58 Radiographs showed left anterior dislocation of the humeral head with comminuted fracture of the surgical neck and greater trochanter. Patient was given procedural sedation with Propofol 80 mg pushed over 40 seconds. Reduction was attempted with longitudinal traction and manual manipulation of the humeral head. The first attempt showed improved reduction of the humeral shaft but no significant change in the humeral head. A second reduction with propofol 80 mg pushed over 40 seconds was attempted. The position of the shaft of the humerus improved but the surgical head stayed in the di slocation position. Dr. Nova was contacted and it was determined that the patient would likely need either closed reduction in the O.R. or shoulder replacement. This could not be done here due to lack of timely attainment of adequate resources expected. This would include hardware as well as putting together a surgical team. I spoke with Dr. Blum, orthopedics. at [facility] who agreed to evaluate the patient in the E.R. Dr. Herrera, E.R. physician, accepted the patient. I spoke with Sindhu at Hospice and she verified that transfer in this situation was not against the patient's directive nor Hospice rule or policies. Patient was given hydrocodone/APAP 10/325 mg and Morphin 4 mg IV in the E.D. here. Departure - Departure Clinical Impression: Humeral surgical neck fracture, Dislocation of humerus, anterior closed Disposition: Transfer to Hospital Condition: Fair Departure Forms: ED Discharge - Pt. Copy, Patient Portal Self Enrollment Diet: other - NPO Activity: other - as per orthopedics Referrals: GRETCHEN HIGGINS MD [Primary Care Provider] - 1-2 Weeks Home Medications: Ambulatory Orders Gabapentin [Neurontin] 600 mg PO BEDTIME 08/28/12 Atorvastatin Calcium [Lipitor] 10 mg PO BEDTIME 12/13/15 Acetaminophen [Tylenol] 500 mg PO Q6HR PRN 12/23/15 Docusate Sodium [Colace] 1 each PO DAILY PRN 12/23/15 Metoprolol Succinate [Toprol Xl] 25 mg PO BEDTIME 04/25/16 Potassium Citrate (Alkalinizer [Potassium Citrate ER] 1,080 mg PO NIRAJ-OTH-DAY 04/25/16 hydrOXYzine HCl [Atarax] 25 mg PO Q4HR PRN 04/25/16 Diltiazem HCl 30 mg PO BID 04/29/17 Folic Syvr-Zchadarxzc-Dlfewknq [Folbic 2.5-25-2 mg] 1 tab PO DAILY 04/29/17 Isosorbide Mononitrate [Isosorbide Mononitrate ER] 30 mg PO DAILY 04/29/17 Promethazine Tab [Phenergan Tablet] 25 mg PO Q6H PRN 04/29/17 Furosemide Tab [Lasix Tab] 40 mg PO DAILY 04/30/17 Tramadol HCl 50 mg PO Q4H PRN 08/27/17 Ibuprofen 400 mg PO Q6H PRN 10/19/17 Magnesium Hydroxide [Milk Of Magnesia] 30 ml PO DAILY PRN 10/19/17 Polyethylene Glycol 3350 [Miralax] 17 gm PO DAILY 10/19/17 FLUoxetine HCL [Prozac] 10 mg PO DAILY 11/08/17 HYDROcodone 10MG/APAP 325MG [[place] 10/325] 1 tab PO Q4HR PRN 11/08/17 HYDROcodone 10MG/APAP 325MG [[place] 10/325] 1 tab PO TID 11/08/17
[2018-06-08 07:03] VITALS: TEMP 97.8
[2018-06-08 08:35] VITALS: BP 108/50; O2SAT 96
== END 2018-06-08 09:11 | disposition short-term general hospital (02) ==
LOC: ER 03:09
DX: S42.212A Unspecified displaced fracture of surgical neck of left humerus, initial encounter for closed fracture (principal); J44.9 Chronic obstructive pulmonary disease, unspecified; I25.10 Atherosclerotic heart disease of native coronary artery without angina pectoris; I10 Essential (primary) hypertension; W18.39XA Other fall on same level, initial encounter; Y92.121 Bathroom in nursing home as the place of occurrence of the external cause; Z88.5 Allergy status to narcotic agent; Z88.0 Allergy status to penicillin; Z79.899 Other long term (current) drug therapy
CPT/HCPCS: 73030; 81001; 87077; 87086; 87186; 94770; J2270; J3490; J7030